=== PATIENT | female | born 1945 | race Caucasian/White ===

== ENCOUNTER 2017-01-16 14:45 | Observation (INO) | payer OTHER, MEDICARE ==
--- NOTE | 2017-01-16 15:16 | EDPHY ---
H & P Time Seen by Provider: 01/16/17 15:05 HPI/ROS: CHIEF COMPLAINT: Weakness HISTORY OF PRESENT ILLNESS: The patient is a 71-year-old female with a history of asthma and COPD on oxygen intermittently who presents to the emergency department with fatigue and weakness. The patient states "I have been in bed for the past 3 days." Patient denies any cough. She denies fever. She has felt a bit "chilled" but thinks this may be to keeping her window open. Patient has no chest pain. She denies mildly increased shortness of breath. She normally wears her oxygen at night when napping. However, for the past 3 days she has worn her oxygen constantly. She denies nausea or vomiting. No leg pain or swelling. REVIEW OF SYSTEMS: My complete review of systems is negative except as mentioned in the HPI. Past Medical/Surgical History: Asthma, COPD, chronic pain Past surgical history: Numerous surgeries Social history: The patient smokes tobacco. She lives at home. Smoking Status: Current every day smoker Physical Exam: Vitals noted GENERAL: Well-appearing, in no acute distress, alert. HEENT: Eyes normal to inspection, normal pharynx, no signs of dehydration. NECK: No thyromegaly, no lymphadenopathy, supple. RESPIRATORY: decreased breath sounds throughout. No rales or rhonchi. No accessory muscle use. No signs of respiratory distress. She is on a nasal cannula at 6. CVS: Regular rate and rhythm, no rubs, murmurs, or gallops. ABDOMEN: Soft, nontender, nondistended, no organomegaly. Bilateral inguinal hernia. Umbilical hernia. Reducible. BACK: Normal to inspection, no CVA tenderness. SKIN: Normal color, no rash, warm, dry. No pallor. EXTREMITIES: No pedal edema, no calf tenderness, no Homans sign or cords, no joint swelling. NEURO/PSYCH: Alert and oriented, normal mood and affect. Constitutional: Initial Vital Signs Temperature (C) 37 C 01/16/17 14:57 Heart Rate 90 01/16/17 14:57 Respiratory Rate 20 01/16/17 14:57 Blood Pressure 101/68 01/16/17 14:57 O2 Sat (%) 76 L 01/16/17 14:57 O2 Delivery Mode Room Air O2 (L/minute) 5 Allergies/Adverse Reactions: No Known Allergies Allergy (Unverified 01/16/17 15:00) Home Medications: Medication Instructions Recorded ASPIRIN 01/16/17 CLONAZEPAM 01/16/17 Lexapro 01/16/17 Lyrica 01/16/17 Oxycodone HCl 01/16/17 Prednisone 01/16/17 Proair Hfa 01/16/17 Progesterone 01/16/17 Synthroid 01/16/17 Medical Decision Making - Diagnostics Imaging Results: Imaging Impressions Chest X-Ray 01/16/17 15:26 Impression: 1. Query COPD with no superimposed acute abnormality identified. 2. Innumerable nodular opacities reasonably relate to remote granulomatous disease. Comparison with prior studies if available would be helpful. 3. See above report for additional findings. ED Course/Re-evaluation: In the emergency department I discussed possible etiologies with the patient. I answered all her questions. IV was placed. Laboratory studies, EKG and chest x-ray were obtained. Patient was given a DuoNeb. Post DuoNeb placement the patient states she felt improved. 15 40: I discussed the plan of care with the patient's daughter was in the room. I discussed laboratory studies with the patient. Of note she had an elevated CO2. Patient ambulated in the emergency department on oxygen. Her oxygen saturation was in the low 90s. Patient was given Solu-Medrol 125 mg IV for COPD exacerbation. I discussed disposition options with the patient and her daughter. They state the patient has been fatigued in her bed for 3 days. They are concerned that she will be able to take care of herself at home. I discussed the case with Dr. Malcolm. He will admit the patient to [facility] for observation for COPD exacerbation. I do not feel the patient needs antibiotics based on her x-ray and presentation. Differential Diagnosis: Differential includes but is not limited to COPD exacerbation, asthma exacerbation, pneumonia, bronchitis, influenza, electrolyte abnormality, sugar abnormality, ACS, acute WA, dehydration - Data Points Laboratory Results: Laboratory Results 01/16/17 15:08 01/16/17 15:08 01/16/17 01/16/17 15:08 15:08 WBC 3.89 10^3/uL 10^3/uL (3.80-9.50) RBC 3.51 10^6/uL L 10^6/uL (4.18-5.33) Hgb 11.5 g/dL L g/dL (12.6-16.3) Hct 36.5 % L % (38.0-47.0) MCV 104.0 fL H fL (81.5-99.8) MCH 32.8 pg pg (27.9-34.1) MCHC 31.5 g/dL L g/dL (32.4-36.7) RDW 13.1 % % (11.5-15.2) Plt Count 157 10^3/uL 10^3/uL (150-400) MPV 10.1 fL fL (8.7-11.7) Neut % (Auto) 57.7 % % (39.3-74.2) Lymph % (Auto) 20.8 % % (15.0-45.0) Iron % (Auto) 19.5 % H % (4.5-13.0) Eos % (Auto) 1.0 % % (0.6-7.6) Baso % (Auto) 0.5 % % (0.3-1.7) Nucleat RBC Rel Count 0.0 % % (0.0-0.2) Absolute Neuts (auto) 2.24 10^3/uL 10^3/uL (1.70-6.50) Absolute Lymphs (auto) 0.81 10^3/uL L 10^3/uL (1.00-3.00) Absolute Monos (auto) 0.76 10^3/uL 10^3/uL (0.30-0.80) Absolute Eos (auto) 0.04 10^3/uL 10^3/uL (0.03-0.40) Absolute Basos (auto) 0.02 10^3/uL 10^3/uL (0.02-0.10) Absolute Nucleated RBC 0.00 10^3/uL 10^3/uL (0-0.01) Immature Gran % 0.5 % % (0.0-1.1) Immature Gran # 0.02 10^3/uL 10^3/uL (0.00-0.10) Sodium 138 mEq/L mEq/L (134-144) Potassium 4.1 mEq/L mEq/L (3.5-5.2) Chloride 92 mEq/L L mEq/L (97-110) Carbon Dioxide 40 mEq/l H mEq/l (22-31) Anion Gap 6 mEq/L L mEq/L (8-16) BUN 18 mg/dL mg/dL (7-23) Creatinine 0.9 mg/dL mg/dL (0.6-1.0) Estimated GFR > 60 Glucose 100 mg/dL mg/dL (70-100) Calcium 9.6 mg/dL mg/dL (8.5-10.4) Troponin I < 0.012 ng/mL ng/mL (0-0.034) NT-Pro-B Natriuret Pep 449 pg/mL H pg/mL (0-125) Departure - Departure Disposition: [facility] Inpatient Acute Clinical Impression: Weakness, COPD with exacerbation Condition: Good Referrals: Patient,NotPresent [Unknown] - As per Instructions
[2017-01-16 15:32] LABS: % IMMATURE GRANULYOCYTES 0.5 % (0.0-1.1); ABSOLUTE IMMATURE GRANULOCYTES 0.02 10^3/uL (0.00-0.10); ADD DIFF? NO; ADD MORPH? NO; ADD SCAN? NO; ATYPICAL LYMPHOCYTE FLAG 0 (0-99); FRAGMENT RBC FLAG 0 (0-99); HEMATOCRIT 36.5 % (38.0-47.0); HEMOGLOBIN 11.5 g/dL (12.6-16.3); LEFT SHIFT FLG 0 (0-99); LIPEMIA HEMOLYSIS FLAG 80 (0-99); MEAN CELL HEMOGLOBIN 32.8 pg (27.9-34.1); MEAN CELL HEMOGLOBIN CONCENTR. 31.5 g/dL (32.4-36.7); MEAN PLATELET VOLUME 10.1 fL (8.7-11.7); PLATELET CLUMPS FLAG 10 (0-99); PLATELET COUNT 157 10^3/uL (150-400); RED BLOOD CELL COUNT 3.51 10^6/uL (4.18-5.33); RED CELL DISTRIBUTION WIDTH 13.1 % (11.5-15.2)
[2017-01-16 15:50] LABS: ANION GAP 6 mEq/L (8-16); CALCIUM 9.6 mg/dL (8.5-10.4); CARBON DIOXIDE 40 mEq/l (22-31); CHLORIDE 92 mEq/L (97-110); CREATININE 0.9 mg/dL (0.6-1.0); GLOMERULAR FILTRATION RATE > 60; GLUCOSE 100 mg/dL (70-100); POTASSIUM 4.1 mEq/L (3.5-5.2); SODIUM 138 mEq/L (134-144)
[2017-01-16 16:02] LABS: TROPONIN I < 0.012 ng/mL (0-0.034)
[2017-01-16] MEDS ORDERED: methylPREDNISolone SOD SUCC 125 MG/2 ML VIAL IVP ONE (17:23)
[2017-01-16] MEDS ORDERED: ONDANSETRON 4 MG/2 ML VIAL IVP PRN (19:00)
[2017-01-16] MEDS ORDERED: ACETAMINOPHEN 325 MG TAB PO PRN (19:00)
[2017-01-16] MEDS ORDERED: ONDANSETRON DISINTEGRATING 4 MG TAB PO PRN (19:00)
[2017-01-16] MEDS ORDERED: ALBUTEROL INH PREPACK MDI TAKEHOME PRN (19:02)
[2017-01-16] MEDS ORDERED: clonazePAM 1 MG TAB PO PRN (19:02)
[2017-01-16] MEDS ORDERED: ALBUTEROL 200 PUFFS/18 GM MDI IH PRN (19:11)
[2017-01-16] MEDS: predniSONE 20 MG TAB PO SCH (19:36)
[2017-01-16] MEDS: AZITHROMYCIN 250 MG TAB PO SCH (19:36)
--- NOTE | 2017-01-16 19:42 | PDGENHP ---
History and Physical - Chief Complaint Acute shortness of breath - History of Present Illness PCP: Dr. Dorantes HPI: 71-year-old female presents with acute shortness of breath characterized as getting easily winded, exacerbated by ambulation, associated with generalized weakness and chills. Onset of symptoms have been progressive over past several days and has rendered her almost completely bed ridden over the past 3. she reports that she has begun using her supplemental oxygen during the daytime and this has not alleviated her symptoms. Reports she has been taking all of her home inhaler medications. She reports that her shortness of breath symptoms were significantly alleviated by duo nebs and steroids received in the emergency department. She has not seen her PCP for this issue. She has not been hospitalized for any pulmonary conditions over the past year. History Information - Allergies/Home Medication List Allergies/Adverse Reactions: No Allergies [NKDA] Allergy (Verified 01/16/17 18:44) Home Medications: Albuterol Sulfate [Proair Hfa] 2 puffs PO Q6H PRN 01/16/17 [Last Taken Unknown] Aspirin [Aspirin 81mg (*)] 81 mg PO DAILY 01/16/17 [Last Taken 01/16/17] Cholecalciferol Vit D3 [Vitamin D3 (*)] 2,000 units PO DAILY 01/16/17 [Last Taken 01/16/17] Escitalopram Oxalate [Lexapro] 5 mg PO DAILY 01/16/17 [Last Taken 01/16/17] Herbals/Supplements -Info Only 1 ea PO DAILY 01/16/17 [Last Taken 01/16/17] Ipratropium [Atrovent Hfa (*)] 2 puffs PO QID 01/16/17 [Last Taken 01/16/17] LEVOTHYROXINE SODIUM [Tirosint 50mcg] 50 mcg PO DAILY 01/16/17 [Last Taken 01/16] Pregabalin [Lyrica 75mg (*)] 75 mg PO BID 01/16/17 [Last Taken 01/16/17] Sulfamethoxazole/Trimethoprim [Bactrim 400-80 mg Tablet] 2 each PO BID 01/16/17 [Last Taken 01/16/17] Thyroid,Pork [[place] Thyroid] 15 mg PO DAILY 01/16/17 [Last Taken 01/16/17] clonazePAM [Clonazepam] 1 mg PO HS PRN 01/16/17 [Last Taken 01/15/17] oxyCODONE/APAP 5/325 [Percocet 5/325 (*)] 1 tab PO QID 01/16/17 [Last Taken ] predniSONE 5 mg PO DAILY 01/16/17 [Last Taken 01/16/17] I have personally reviewed and updated: family history, medical history, social history, surgical history - Past Medical History COPD ( Chronically steroid dependent, chronic immune-suppressed.) Additional medical history: Hypothyroidism. Depression. Chronic pain with continuous opiate dependency - Surgical History Additional surgical history: scoliosis with complete spine hardware, performed in [facility] - Family History Additional family history: she denies any recent sick family contacts - Social History Smoking Status: Current some day smoker Alcohol Use: None Drug Use: None Additional social history: normally independent in her ADLs, lives alone, utilizes a rolling walker, has some private duty assistance with outpatient appointments, family lives locally, has been [place] for the last year Review of Systems ROS: 10pt was reviewed & negative except for what was stated in HPI & below Constitutional: Reports: chills, weakness Respiratory: Reports: shortness of breath Physical Exam Temp Pulse Resp BP Pulse Ox 36.9 C 91 16 106/47 L 92 01/16/17 19:21 01/16/17 19:21 01/16/17 19:21 01/16/17 19:21 01/16/17 19:21 O2 (L/minute) 2.5 Constitutional: no apparent distress, not in pain, chronically ill appearing, No uncomfortable Eyes: PERRL, anicteric sclera, EOMI Ears, Nose, Mouth, Throat: moist mucous membranes, hearing normal, ears appear normal, no oral mucosal ulcers Cardiovascular: systolic murmur ( 2/6 at the sternum), No irregularly irregular , No tachycardia, No edema Respiratory: reduced air movement ( shortened expiratory phase bilaterally), No expiratory wheeze, No inspiratory crackles, No bronchial breath sounds Gastrointestinal: normoactive bowel sounds, soft, non-tender abdomen, no palpable masses, other ( bilateral inguinal hernias, reduce without pain) Musculoskeletal: full muscle strength, no muscle tenderness, normal joint ROM Neurologic: AAOx3, sensation intact bilaterally, No weakness ( motor 5/5 bilateral lower extremities) Psychiatric: interacting appropriately, not anxious, not encephalopathic, thought process linear Lab Data & Imaging Review 01/16/17 15:08 01/16/17 15:08 WBC 3.89 10^3/uL (3.80-9.50) 01/16/17 15:08 RBC 3.51 10^6/uL (4.18-5.33) L 01/16/17 15:08 Hgb 11.5 g/dL (12.6-16.3) L 01/16/17 15:08 Hct 36.5 % (38.0-47.0) L 01/16/17 15:08 MCV 104.0 fL (81.5-99.8) H 01/16/17 15:08 MCH 32.8 pg (27.9-34.1) 01/16/17 15:08 MCHC 31.5 g/dL (32.4-36.7) L 01/16/17 15:08 RDW 13.1 % (11.5-15.2) 01/16/17 15:08 Plt Count 157 10^3/uL (150-400) 01/16/17 15:08 MPV 10.1 fL (8.7-11.7) 01/16/17 15:08 Neut % (Auto) 57.7 % (39.3-74.2) 01/16/17 15:08 Lymph % (Auto) 20.8 % (15.0-45.0) 01/16/17 15:08 [place] % (Auto) 19.5 % (4.5-13.0) H 01/16/17 15:08 Eos % (Auto) 1.0 % (0.6-7.6) 01/16/17 15:08 Baso % (Auto) 0.5 % (0.3-1.7) 01/16/17 15:08 Nucleat RBC Rel Count 0.0 % (0.0-0.2) 01/16/17 15:08 Absolute Neuts (auto) 2.24 10^3/uL (1.70-6.50) 01/16/17 15:08 Absolute Lymphs (auto) 0.81 10^3/uL (1.00-3.00) L 01/16/17 15:08 Absolute Monos (auto) 0.76 10^3/uL (0.30-0.80) 01/16/17 15:08 Absolute Eos (auto) 0.04 10^3/uL (0.03-0.40) 01/16/17 15:08 Absolute Basos (auto) 0.02 10^3/uL (0.02-0.10) 01/16/17 15:08 Absolute Nucleated RBC 0.00 10^3/uL (0-0.01) 01/16/17 15:08 Immature Gran % 0.5 % (0.0-1.1) 01/16/17 15:08 Immature Gran # 0.02 10^3/uL (0.00-0.10) 01/16/17 15:08 Sodium 138 mEq/L (134-144) 01/16/17 15:08 Potassium 4.1 mEq/L (3.5-5.2) 01/16/17 15:08 Chloride 92 mEq/L (97-110) L 01/16/17 15:08 Carbon Dioxide 40 mEq/l (22-31) H 01/16/17 15:08 Anion Gap 6 mEq/L (8-16) L 01/16/17 15:08 BUN 18 mg/dL (7-23) 01/16/17 15:08 Creatinine 0.9 mg/dL (0.6-1.0) 01/16/17 15:08 Estimated GFR > 60 01/16/17 15:08 Glucose 100 mg/dL (70-100) 01/16/17 15:08 Calcium 9.6 mg/dL (8.5-10.4) 01/16/17 15:08 Troponin I < 0.012 ng/mL (0-0.034) 01/16/17 15:08 NT-Pro-B Natriuret Pep 449 pg/mL (0-125) H 01/16/17 15:08 Influenza Typ A,B (DFA) NEGATIVE FOR FLU (NEGATIVE) 01/16/17 17:45 Visualized and Interpreted Chest x-ray results: Yes Chest X-Ray results: no infiltrate, other ( diffuse pulmonary nodules, hyperinflated, extensive spinal hardware) Assessment & Plan Assessment: 71-year-old female presenting with acute COPD exacerbation resulting in acute hypoxic respiratory failure Plan: 1. COPD exacerbation. Acute, new problem this provider, further workup is indicated. Evidenced by significant hypoxia and respiratory failure, symptomatic shortness of breath, reduced expiratory phase diffusely throughout, most likely secondary to either URI or environmental allergens stimulant, need to rule out pulmonary embolism -get D-dimer, CT angiogram if positive -send flu PCR, DFA negative -no evidence of CHF on chest x-ray -improving with duo nebs, steroids, continue -add azithromycin to reduce duration of symptoms -continue supplemental oxygen 2. Acute hypoxic respiratory failure. Evidenced by an SpO2 of 76% on room air with symptomatic shortness of breath and tachypnea, most likely secondary to acute COPD exacerbation as outlined above. -currently requiring supplemental oxygen, continue -attempt to wean as tolerates, pulse ox monitoring -may require supplemental oxygen moving forward at home Diet. Regular Prophylaxis. High risk patient, Lovenox 40 Code. Full per patient, daughter is MPOA Disposition. Anticipated discharge is 01/17/2017, pending further workup and clinical stability as outlined above. I have discussed patient's presentation with Dr. Morrow in the emergency department, he and I both agree that patient should receive scheduled duo nebs and steroids as outlined above.
[2017-01-16] MEDS: IPRATROPIUM/ALBUTEROL 3 ML DEYVIAL IH SCH (20:08)
[2017-01-16] MEDS: OXYCODONE/APAP 5/325 TAB PO SCH (20:26)
[2017-01-16] MEDS: PREGABALIN 75 MG CAP PO SCH (20:26)
[2017-01-16] MEDS: SULFAMETHOX/TMP 400/80 MG 1 TAB PO SCH (20:27)
[2017-01-17 05:12] LABS: ANION GAP 12 mEq/L (8-16); CALCIUM 9.8 mg/dL (8.5-10.4); CARBON DIOXIDE 34 mEq/l (22-31); CHLORIDE 92 mEq/L (97-110); GLOMERULAR FILTRATION RATE 54; GLUCOSE 233 mg/dL (70-100); POTASSIUM 4.7 mEq/L (3.5-5.2); SODIUM 138 mEq/L (134-144)
[2017-01-17] MEDS: IPRATROPIUM/ALBUTEROL 3 ML DEYVIAL IH SCH ×2 (05:14→10:59)
[2017-01-17] MEDS: OXYCODONE/APAP 5/325 TAB PO SCH ×2 (05:21→10:48)
[2017-01-17] MEDS ORDERED: NICOTINE 21 MG/24 HR PATCH TD SCH (09:00)
[2017-01-17] MEDS ORDERED: Herbals/Supplements -Info Only PO SCH (09:00)
[2017-01-17] MEDS ORDERED: ESCITALOPRAM OXALATE 10 MG TAB PO SCH (09:00)
[2017-01-17] MEDS ORDERED: LEVOTHYROXINE SODIUM 50 MCG PO SCH (09:00)
[2017-01-17] MEDS ORDERED: ASPIRIN 81 MG CHEWABLE TAB PO SCH (09:00)
[2017-01-17] MEDS ORDERED: NON-FORMULARY NEW DRUG (Thyroid,Pork [Armour Thyroid] 15 MG) PO SCH (09:00)
[2017-01-17] MEDS ORDERED: CHOLECALCIFEROL VIT D3 1,000 UNITS TAB PO SCH (09:00)
[2017-01-17] MEDS ORDERED: ENOXAPARIN 40 MG/0.4 ML SYR SC SCH (09:00)
[2017-01-17] MEDS ORDERED: THYROID 60 MG TAB PO SCH ×2 (10:00)
[2017-01-17] MEDS: PREGABALIN 75 MG CAP PO SCH (10:00)
[2017-01-17] MEDS: predniSONE 20 MG TAB PO SCH (10:00)
[2017-01-17] MEDS: AZITHROMYCIN 250 MG TAB PO SCH (10:01)
[2017-01-17 11:54] VITALS: BP 115/49; PULSE 102; RESP 19; TEMP 98.4; O2SAT 90
[2017-01-17] MEDS: SULFAMETHOX/TMP 400/80 MG 1 TAB PO SCH ×2 (11:56→13:16)
[2017-01-17] MEDS ORDERED: NS 500 ML IV ONE (12:00)
--- NOTE | 2017-01-17 12:38 | PDIAF ---
- Diagnosis Diagnosis: COPD Code Status: Full Code - Medication Management Discharge Medications: Medications to Continue on Transfer Albuterol Sulfate [Proair Hfa] 2 puffs PO Q6H PRN 01/16/17 [Last Taken Unknown] Aspirin [Aspirin 81mg (*)] 81 mg PO DAILY 01/16/17 [Last Taken 01/16/17] Cholecalciferol Vit D3 [Vitamin D3 (*)] 2,000 units PO DAILY 01/16/17 [Last Taken 01/16/17] Escitalopram Oxalate [Lexapro 10 MG] 5 mg PO DAILY 01/16/17 [Last Taken 01/16/17 ] Herbals/Supplements -Info Only 1 ea PO DAILY 01/16/17 [Last Taken 01/16/17] Ipratropium [Atrovent Hfa (*)] 2 puffs PO QID 01/16/17 [Last Taken 01/16/17] LEVOTHYROXINE SODIUM [Tirosint 50mcg] 50 mcg PO DAILY 01/16/17 [Last Taken 01/16] Pregabalin [Lyrica 75mg (*)] 75 mg PO BID 01/16/17 [Last Taken 01/16/17] Sulfamethoxazole/Trimethoprim [Bactrim SS] 2 each PO BID 01/16/17 [Last Taken ] Thyroid,Pork [ARMOUR THYROID] 15 mg PO DAILY 01/16/17 [Last Taken 01/16/17] clonazePAM [Clonazepam] 1 mg PO HS PRN 01/16/17 [Last Taken 01/15/17] oxyCODONE/APAP 5/325 [Percocet 5/325 (*)] 1 tab PO QID 01/16/17 [Last Taken ] predniSONE 5 mg PO DAILY 01/16/17 [Last Taken 01/16/17] Acetaminophen [Tylenol 325mg (*)] 650 mg PO Q4HRS PRN #0 tab 01/17/17 [Last Taken Unknown] Azithromycin [Zithromax] 250 mg PO DAILY #4 tab 01/17/17 [Last Taken Unknown] Nicotine [Nicoderm Cq 21 mg (*)] 21 mg TD DAILY #0 patch 01/17/17 [Last Taken Unknown] predniSONE 60 mg PO DAILY #12 tablet 01/17/17 [Last Taken Unknown] Discharge Medications: Refer to the Discharge Home Medication list for PRN reason. PICC Care - Routine: N/A - Orders Services needed: Registered Nurse, Physical Therapy, Occupational Therapy - Follow Up Care Current Providers and Referrals: Patient,NotPresent [Unknown] - As per Instructions
--- NOTE | 2017-01-17 14:18 | GDS ---
[f rep st] DISCHARGE SUMMARY DISCHARGE DIAGNOSES: 1. Chronic obstructive pulmonary disease exacerbation. 2. Acute hypoxemic respiratory failure. PHYSICAL EXAMINATION: GENERAL: The patient is alert. VITAL SIGNS: Afebrile at 36.9, pulse is 102 , respiratory rate is 19, blood pressure is 115/49, she is saturating 90% on 3 L. I have seen and evaluated the patient on the day of discharge. HOSPITAL COURSE: The patient is a 71-year-old female who presented to the emergency room with compl aints of shortness of breath. She was evaluated and diagnosed with: 1. COPD exacerbation: During this hospitalization she was treated with azithromycin as well as a p rednisone burst. She will continue both of these medications in the outpatient setting. She has no signs of pneumonia at this time. Her respiratory situation has significantly improved, and she is able to be discharged home. 2. Acute hypoxemic respiratory failure: The patient continues to require oxygen. Her requirements have decreased during this hospitalization but is still requiring supplemental oxygen at the time o f discharge. 3. Multiple lung nodule opacities: These were noted on the patient's chest x-ray. I have recommen ded that she follow up with a repeat chest x-ray and her primary care physician in 1 week to assure stability and further recommendations for evaluation of these nodules. She is in agreement with thi s plan and indicates that she is aware that they are present. I have discussed the patient's dispos ition with her daughter, Miriam. They are both in agreement with this plan. The patient will be dis charged home with home health care and further follow up with her primary care physician. DISCHARGE MEDICATIONS: Please refer to EMR form. I have provided the patient a prescription for pr ednisone 60 daily for a total of 4 more days as well as azithromycin 250 mg daily for a total of 4 m ore days. She is to reinitiate her home prednisone dose of 5 mg after her prednisone bolus is compl ete. There are no further pending studies. /[id number]/MODL
== END 2017-01-17 16:13 | disposition home health service (06) ==
LOC: EDUNIT# → F3E 18:29
PROVIDERS: ADMIT Internal Medicine; ATTEND Internal Medicine
DX: J44.1 Chronic obstructive pulmonary disease with (acute) exacerbation (principal); J96.01 Acute respiratory failure with hypoxia; R91.8 Other nonspecific abnormal finding of lung field; F17.200 Nicotine dependence, unspecified, uncomplicated; Z99.81 Dependence on supplemental oxygen
CPT/HCPCS: 71020; 97161; 97165; 97535; G0378; G8978; G8979; G8987; G8988; J1650; 96374

== ENCOUNTER 2017-03-16 12:21 | Inpatient (IN) | payer OTHER, MEDICARE ==
--- NOTE | 2017-03-16 13:08 | CPEKG ---
Heart Rate: 102 RR Interval: 588 P-R Interval: 136 QRSD Interval: 72 QT Interval: 336 QTC Interval: 438 P [place]: 52 QRS [place]: 70 T Wave [place]: 63 EKG Severity - ABNORMAL ECG - EKG Impression: SINUS TACHYCARDIA EKG Impression: PROBABLE LEFT ATRIAL ABNORMALITY EKG Impression: PROBABLE INFERIOR INFARCT, OLD EKG Impression: BORDERLINE T ABNORMALITIES, ANT-LAT LEADS EKG Impression: ST ELEVATION SUGGESTS PERICARDITIS Electronically Signed By: Simon Mcdermott 16-Mar-2017 21:27:17
[2017-03-16 13:14] LABS: % IMMATURE GRANULYOCYTES 1.8 % (0.0-1.1); ABSOLUTE IMMATURE GRANULOCYTES 0.11 10^3/uL (0.00-0.10); ADD DIFF? NO; ADD MORPH? NO; ADD SCAN? NO; ATYPICAL LYMPHOCYTE FLAG 0 (0-99); FRAGMENT RBC FLAG 0 (0-99); HEMATOCRIT 36.5 % (38.0-47.0); HEMOGLOBIN 11.6 g/dL (12.6-16.3); LEFT SHIFT FLG 10 (0-99); LIPEMIA HEMOLYSIS FLAG 80 (0-99); MEAN CELL HEMOGLOBIN 34.9 pg (27.9-34.1); MEAN CELL HEMOGLOBIN CONCENTR. 31.8 g/dL (32.4-36.7); MEAN CELL VOLUME 109.9 fL (81.5-99.8); MEAN PLATELET VOLUME 10.5 fL (8.7-11.7); PLATELET CLUMPS FLAG 10 (0-99); PLATELET COUNT 159 10^3/uL (150-400); RED BLOOD CELL COUNT 3.32 10^6/uL (4.18-5.33); RED CELL DISTRIBUTION WIDTH 12.7 % (11.5-15.2)
[2017-03-16] MEDS ORDERED: IPRATROPIUM/ALBUTEROL 3 ML DEYVIAL IH ONE (13:15)
[2017-03-16] MEDS ORDERED: IPRATROPIUM/ALBUTEROL 3 ML DEYVIAL ONE (13:15)
[2017-03-16] MEDS ORDERED: methylPREDNISolone SOD SUCC 125 MG/2 ML VIAL IVP ONE (13:15)
[2017-03-16] MEDS ORDERED: NS 500 ML IV ONE (13:15)
[2017-03-16] MEDS ORDERED: MAGNESIUM SULF 2 GM/WATER 50 ML IV ONE (13:15)
[2017-03-16] MEDS ORDERED: methylPREDNISolone SOD SUCC 125 MG/2 ML VIAL ONE (13:16)
--- NOTE | 2017-03-16 13:24 | EDPHY ---
H & P Time Seen by Provider: 03/16/17 12:58 HPI/ROS: HPI Weakness, shortness of breath. 72-year-old female by ambulance. She lives alone. She does have a daughter in the area that helps with her care. She also has home health care who come into her home twice weekly. She has a history of COPD. She has been feeling more short of breath and very weak onset 2-3 days ago. She reports she has been wheezing. She denies cough. No chest pain. She reports having a subjective fever. ROS: Constitutional: No fever, no chills. As above. Eyes: No discharge. No changes in vision. ENT: No sore throat. No nasal congestion or rhinorrhea. Respiratory: No cough. As above. Cardiac: No chest pain, no palpitations. Gastrointestinal: No abdominal pain, no vomiting, no diarrhea. Genitourinary: No hematuria. No dysuria or increased frequency with urination. Musculoskeletal: No back pain. No neck pain. No myalgias or arthralgias. Skin: No rashes. Neurological: No headache. No focal weakness or altered sensation. Past medical history: Asthma, COPD, depression, chronic back pain, abdominal hernia repair x2, hypothyroid. She is on oxygen, 2 L 24-7. Social history: Lives alone. As above. Smoker. States that she ambulates without a walker or cane but uses furniture to a sister movements. Denies alcohol. Physical Exam: General Appearance: Alert, cachectic, appears uncomfortable. This patient is responding to questions slowly but appropriately. This patient appears well- hydrated and well-nourished. Eyes: Pupils equal and round no pallor or injection. No lid edema, erythema or injection. ENT, Mouth: Mucous membranes are moist. The pharyngeal tissues are unremarkable. No edema or swelling. No asymmetry suggestive of abscess. No erythema or exudates. Respiratory: There are no retractions, diffuse wheezing throughout bilaterally with shallow air movement. No rhonchi. No tachypnea. Cardiovascular: Regular rate and rhythm. Borderline tachycardia. No murmur appreciated. Gastrointestinal: Abdomen is soft and nontender, umbilical hernia, easily reducible, bowel sounds normal. No focal tenderness at McBurney's point. No Tee sign. Neurological: Motor sensory function is grossly intact. Cranial nerves are normal. Skin: Warm and dry, no rashes. Musculoskeletal: Neck is supple and nontender. Extremities are symmetrical. All joints range without pain or impingement. Psychiatric: No agitation. No depression. Database: EKG: EKG time is 1:07 p.m.; EKG shows a narrow complex sinus tachycardia with a ventricular rate of 102. Diffuse ST elevations, 2 3 AVF, V3, V4 and V5. No reciprocal changes. The SC, QRS, QT intervals are within normal limits. There are no ST-T wave changes indicative of ischemic or injury pattern. No evidence of right heart strain. Interpreted by me. Imaging: Chest x-ray AP portable; COPD, hyper expansion, flattened diaphragms, no pneumothorax, spinal rods appear intact, scoliosis, no infiltrate seen. Interpreted by me. Procedures: Emergency department course: IV placed. She was placed on a monitor. She received 1 albuterol/Atrovent nebulizer treatment and route to the hospital by EMS. EKG was performed. Chest x-ray obtained shortly after arrival. Patient started on albuterol/ Atrovent nebulizers x2, she was given 125 mg of IV Solu-Medrol and 2 g of IV magnesium for treatment of COPD/asthma exacerbation. Vital signs reviewed. Temperature 37.4degrees. Pulse oximetry 96% on 3 L by nasal cannula. 3:25 p.m., patient re-evaluated. She is resting comfortably at this time. She is on 4 L of nasal cannula oxygen. Pulse oximetry in the mid 90s. She reports feeling much better. I discussed the results of her chest x-ray and blood work. Plan for admission reviewed with her. She endorses. 3:30 p.m., patient accepted for admission by hospitalist, Dr. Baeza. Patient admitted to the hospitalist service in stable and improved condition. Differential Diagnosis: The differential diagnosis on this patient includes but is not limited to COPD exacerbation, pneumonia, bronchitis, asthma exacerbation, pericarditis, myocarditis, myocardial infarction, urinary tract infection. This represents a partial list of diagnoses considered. These considerations are based on history , physical exam, past history, reassessment and diagnostic testing. Smoking Status: Current some day smoker Constitutional: Initial Vital Signs Temperature (C) 37.4 C 03/16/17 12:35 Heart Rate 102 H 03/16/17 12:35 Respiratory Rate 20 03/16/17 12:35 Blood Pressure 114/66 03/16/17 12:35 O2 Sat (%) 96 03/16/17 12:35 O2 Delivery Mode Nasal Cannula O2 (L/minute) 4 Allergies/Adverse Reactions: No Allergies [NKDA] Allergy (Verified 01/16/17 18:44) Home Medications: Medication Instructions Recorded Albuterol Sulfate [Proair Hfa] 2 puffs PO Q6H PRN 01/16/17 Aspirin [Aspirin 81mg (*)] 81 mg PO DAILY 01/16/17 Cholecalciferol Vit D3 [Vitamin D3 2,000 units PO DAILY 01/16/17 (*)] Escitalopram Oxalate [Lexapro 10 5 mg PO DAILY 01/16/17 MG] Herbals/Supplements -Info Only 1 ea PO DAILY 01/16/17 Ipratropium [Atrovent Hfa (*)] 2 puffs PO QID 01/16/17 LEVOTHYROXINE SODIUM [Tirosint 50 mcg PO DAILY 01/16/17 50mcg] Pregabalin [Lyrica 75mg (*)] 75 mg PO BID 01/16/17 Sulfamethoxazole/Trimethoprim 2 each PO BID 01/16/17 [Bactrim SS] Thyroid,Pork [ARMOUR THYROID] 15 mg PO DAILY 01/16/17 clonazePAM [Clonazepam] 1 mg PO HS PRN 01/16/17 oxyCODONE/APAP 5/325 [Percocet 1 tab PO QID 01/16/17 5/325 (*)] predniSONE 5 mg PO DAILY 01/16/17 Acetaminophen [Tylenol 325mg (*)] 650 mg PO Q4HRS PRN #0 tab 01/17/17 Azithromycin [Zithromax] 250 mg PO DAILY #4 tab 01/17/17 Nicotine [Nicoderm Cq 21 mg (*)] 21 mg TD DAILY #0 patch 01/17/17 predniSONE 60 mg PO DAILY #12 tablet 01/17/17 Medical Decision Making - Diagnostics Imaging Results: Imaging Impressions Chest X-Ray 03/16/17 13:16 Impression: 1. Suspect COPD/airways disease. 2. Innumerable calcified granulomata consistent with remote granulomatous disease. - Data Points Laboratory Results: Laboratory Results 03/16/17 13:00 03/16/17 13:00 03/16/17 03/16/17 03/16/17 13:00 13:00 13:00 WBC 6.00 10^3/uL 10^3/uL (3.80-9.50) RBC 3.32 10^6/uL L 10^6/uL (4.18-5.33) Hgb 11.6 g/dL L g/dL (12.6-16.3) Hct 36.5 % L % (38.0-47.0) MCV 109.9 fL H fL (81.5-99.8) MCH 34.9 pg H pg (27.9-34.1) MCHC 31.8 g/dL L g/dL (32.4-36.7) RDW 12.7 % % (11.5-15.2) Plt Count 159 10^3/uL 10^3/uL (150-400) MPV 10.5 fL fL (8.7-11.7) Neut % (Auto) 64.1 % % (39.3-74.2) Lymph % (Auto) 18.2 % % (15.0-45.0) [place] % (Auto) 15.5 % H % (4.5-13.0) Eos % (Auto) 0.2 % L % (0.6-7.6) Baso % (Auto) 0.2 % L % (0.3-1.7) Nucleat RBC Rel Count 0.0 % % (0.0-0.2) Absolute Neuts (auto) 3.85 10^3/uL 10^3/uL (1.70-6.50) Absolute Lymphs (auto) 1.09 10^3/uL 10^3/uL (1.00-3.00) Absolute Monos (auto) 0.93 10^3/uL H 10^3/uL (0.30-0.80) Absolute Eos (auto) 0.01 10^3/uL L 10^3/uL (0.03-0.40) Absolute Basos (auto) 0.01 10^3/uL L 10^3/uL (0.02-0.10) Absolute Nucleated RBC 0.00 10^3/uL 10^3/uL (0-0.01) Immature Gran % 1.8 % H % (0.0-1.1) Immature Gran # 0.11 10^3/uL H 10^3/uL (0.00-0.10) PT INR APTT D-Dimer Turbidity Cancelled Sodium 138 mEq/L mEq/L Cancelled (134-144) Potassium 4.4 mEq/L mEq/L Cancelled (3.5-5.2) Chloride 91 mEq/L L mEq/L Cancelled (97-110) Carbon Dioxide 40 mEq/l H mEq/l Cancelled (22-31) Anion Gap 7 mEq/L L mEq/L Cancelled (8-16) BUN 28 mg/dL H mg/dL Cancelled (7-23) Creatinine 0.9 mg/dL mg/dL Cancelled (0.6-1.0) Estimated GFR > 60 Cancelled Glucose 72 mg/dL mg/dL Cancelled (70-100) Calcium 10.0 mg/dL mg/dL Cancelled (8.5-10.4) Total Bilirubin 0.6 mg/dL mg/dL (0.1-1.4) Conjugated Bilirubin 0.4 mg/dL mg/dL (0.0-0.5) Unconjugated Bilirubin 0.2 mg/dL mg/dL (0.0-1.1) AST 42 IU/L IU/L (14-46) ALT 53 IU/L H IU/L (9-52) Alkaline Phosphatase 43 IU/L IU/L (38-126) Troponin I 0.013 ng/mL ng/mL (0-0.034) NT-Pro-B Natriuret Pep 456 pg/mL H pg/mL (0-125) Total Protein 6.5 g/dL g/dL (6.3-8.2) Albumin 3.9 g/dL g/dL (3.5-5.0) TSH 1.930 uIU/mL uIU/mL (0.465-4.680) Specimen Hemolysis Cancelled Ethyl Alcohol < 10 mg/dL mg/dL (0-10) 03/16/17 11:50 WBC RBC Hgb Hct MCV MCH MCHC RDW Plt Count MPV Neut % (Auto) Lymph % (Auto) [place] % (Auto) Eos % (Auto) Baso % (Auto) Nucleat RBC Rel Count Absolute Neuts (auto) Absolute Lymphs (auto) Absolute Monos (auto) Absolute Eos (auto) Absolute Basos (auto) Absolute Nucleated RBC Immature Gran % Immature Gran # PT 12.5 SEC SEC (12.0-15.0) INR 0.94 (0.83-1.16) APTT 26.2 SEC SEC (23.0-38.0) D-Dimer 0.46 ug/mLFEU ug/mLFEU (0.00-0.50) Turbidity Sodium Potassium Chloride Carbon Dioxide Anion Gap BUN Creatinine Estimated GFR Glucose Calcium Total Bilirubin Conjugated Bilirubin Unconjugated Bilirubin AST ALT Alkaline Phosphatase Troponin I NT-Pro-B Natriuret Pep Total Protein Albumin TSH Specimen Hemolysis Ethyl Alcohol Medications Given: Discontinued Medications Albuterol/Ipratropium (Duoneb) 6 ml IH EDNOW ONE Stop: 03/16/17 13:16 Last Admin: 03/16/17 14:08 Dose: 6 ml Hydromorphone HCl (Dilaudid) 0.5 mg IVP EDNOW ONE Stop: 03/16/17 14:13 Last Admin: 03/16/17 13:50 Dose: 0.5 mg Sodium Chloride (Ns) 500 mls @ 1,000 mls/hr IV ONCE ONE PRN Reason: Protocol Stop: 03/16/17 13:44 Last Admin: 03/16/17 13:30 Dose: 500 mls Magnesium Sulfate (Magnesium Sulf 2 Gm (Premix)) 50 mls @ 50 mls/hr IV EDNOW ONE Stop: 03/16/17 14:14 Last Admin: 03/16/17 14:00 Dose: 50 mls Methylprednisolone Sodium Succinate (Solu-Medrol) 125 mg IVP EDNOW ONE Stop: 03/16/17 13:16 Last Admin: 03/16/17 13:45 Dose: 125 mg Departure - Departure Disposition: [facility] Inpatient Acute Clinical Impression: Dyspnea, Weakness, COPD exacerbation, Dehydration Referrals: Patient,NotPresent [Unknown] - As per Instructions
[2017-03-16 13:33] LABS: INR 0.94 (0.83-1.16); PROTIME(PATIENT) 12.5 SEC (12.0-15.0)
[2017-03-16 13:34] LABS: APTT 26.2 SEC (23.0-38.0)
[2017-03-16] MEDS ORDERED: HYDROmorphONE/DILAUDID 1 MG/ML SYR ONE (13:43)
[2017-03-16] MEDS ORDERED: HYDROmorphONE/DILAUDID 1 MG/ML SYR IVP ONE (14:12)
[2017-03-16 14:49] LABS: ALANINE AMINOTRANSFERASE 53 IU/L (9-52); ALBUMIN 3.9 g/dL (3.5-5.0); ALKALINE PHOSPHATASE 43 IU/L (38-126); ASPARTATE AMINOTRANSFERASE 42 IU/L (14-46); BILIRUBIN,TOTAL 0.6 mg/dL (0.1-1.4); BILIRUBIN-CONJUGATED 0.4 mg/dL (0.0-0.5); BILIRUBIN-UNCONJUGATED 0.2 mg/dL (0.0-1.1); CHLORIDE 91 mEq/L (97-110); CREATININE 0.9 mg/dL (0.6-1.0); ETHANOL SERUM < 10 mg/dL (0-10); GLOMERULAR FILTRATION RATE > 60; GLUCOSE 72 mg/dL (70-100); POTASSIUM 4.4 mEq/L (3.5-5.2); SODIUM 138 mEq/L (134-144); TOTAL PROTEIN 6.5 g/dL (6.3-8.2)
[2017-03-16 15:00] LABS: TROPONIN I 0.013 ng/mL (0-0.034)
[2017-03-16 15:04] LABS: ANION GAP 7 mEq/L (8-16)
[2017-03-16 15:21] LABS: CARBON DIOXIDE 40 mEq/l (22-31)
[2017-03-16 16:21] LABS: COLOR YELLOW; LEUKOCYTE ESTERASE,URINE NEGATIVE (NEGATIVE); NITRITE,URINE NEGATIVE (NEGATIVE)
[2017-03-16 16:23] LABS: MUCUS TRACE /lpf (NONE-1+)
[2017-03-16] MEDS ORDERED: ACETAMINOPHEN 325 MG TAB PO PRN (16:56)
[2017-03-16] MEDS ORDERED: ALBUTEROL 3 ML DEYVIAL IH PRN (16:56)
[2017-03-16] MEDS ORDERED: ONDANSETRON 4 MG/2 ML VIAL IVP PRN (16:56)
[2017-03-16] MEDS ORDERED: ONDANSETRON DISINTEGRATING 4 MG TAB PO PRN (16:56)
[2017-03-16] MEDS ORDERED: clonazePAM 1 MG TAB PO PRN (16:58)
--- NOTE | 2017-03-16 17:54 | GHP ---
[f rep st] HISTORY AND PHYSICAL DATE OF ADMISSION: 03/16/2017 CHIEF COMPLAINT: Shortness of breath. HISTORY OF PRESENT ILLNESS: This is a 72-year-old female with past history of COPD. She is usually on 2 L of oxygen. Over the last several days, she has had increasing shortness of breath. She nihcols s not have a productive cough. No chest pain. Patient is a poor historian, but it does appear that she is on some antibiotics and steroids at home. I am not sure this is a cure or chronic. The lily stone's daughter noticed that she was somnolent yesterday; this is a little bit better today. REVIEW OF SYSTEMS: A 10-point review of systems obtained and, other than stated above, was negative . PAST MEDICAL HISTORY: 1. COPD, chronically steroid dependent and immune suppressed. 2. Hypothyroidism. 3. Depression. 4. Chronic pain with chronic opiates. 5. History of scoliosis with spine fusion present from cervical to the sacrum. SOCIAL HISTORY: Does continue to smoke some. FAMILY HISTORY: Both parents are . PHYSICAL EXAMINATION: VITAL SIGNS: Afebrile. Blood pressure is 136/53, heart rate 94, oxygen satu ration 97% on 4 L. GENERAL: Patient is cachectic-appearing but in no apparent distress. HEENT: a nicteric sclerae. Extraocular muscles intact. Moist mucous membranes. NECK: Supple. No thyromeg john. LUNGS: Good effort. Decreased breath sounds throughout. No wheezing or rhonchi. CARDIOVASC ULAR: Regular rate and rhythm. No murmurs or gallops. ABDOMEN: Positive bowel sounds. Soft, non tender, nondistended. No hepatosplenomegaly. EXTREMITIES: No clubbing, cyanosis, or edema. SKIN: Without rash. Warm, dry, and intact. NEUROLOGIC: Alert and oriented but somewhat slow in answer ing questions. LABORATORY DATA: CBC is normal but MCV is 109. Alcohol level is normal. Chemistry: Does have CO2 of 40. D-dimer is negative. Chest x-ray personally reviewed and interpreted, shows COPD and granulomas. ASSESSMENT: This is a 72-year-old female with fairly progressive chronic obstructive pulmonary dise ase, presenting with chronic obstructive pulmonary disease exacerbation. 1. Chronic obstructive pulmonary disease exacerbation. Patient says she is feeling better, althoug h she does answer questions slowly. I wonder if there is still an element of hypercarbia. Will get ABG to get a better idea. She may need a bit of BiPAP, but again she is feeling better and is ment ating fairly well. It appears that she may be on 40 mg of prednisone twice a day chronically. We w ill treat with some IV Solu-Medrol at 60 mg q.6 for now. In the morning, will try to elucidate if s he is really on that high of a dose of steroids. She looks like she is on Bactrim, as well, which c ould be for PCP prophylaxis. Probably should be following up with a foreman/project manager if she is that en d-stage. 2. Chronic pain. Will continue her pain medicines as needed but watch her mental status. CODE STATUS: Patient does want to be full code. /[id number]/MODL
[2017-03-16] MEDS: OXYCODONE/APAP 5/325 TAB PO PRN (18:29)
[2017-03-16] MEDS: methylPREDNISolone SOD SUCC 125 MG/2 ML VIAL IVP SCH (18:31)
[2017-03-16] MEDS: PREGABALIN 75 MG CAP PO SCH (21:16)
[2017-03-16] MEDS: SULFAMETHOX/TMP 800/160 MG 1 TAB PO SCH (21:16)
[2017-03-16] MEDS: IPRATROPIUM/ALBUTEROL 3 ML DEYVIAL IH SCH (21:44)
[2017-03-17] MEDS: methylPREDNISolone SOD SUCC 125 MG/2 ML VIAL IVP SCH ×3 (00:15→10:59)
[2017-03-17] MEDS: IPRATROPIUM/ALBUTEROL 3 ML DEYVIAL IH SCH ×4 (05:14→21:28)
[2017-03-17] MEDS: LEVOTHYROXINE 50 MCG TAB PO SCH (05:50)
[2017-03-17] MEDS: OXYCODONE/APAP 5/325 TAB PO PRN ×3 (06:33→20:06)
[2017-03-17] MEDS ORDERED: NON-FORMULARY NEW DRUG (Mirabegron [Myrbetriq] 50 MG) PO SCH (09:00)
[2017-03-17] MEDS ORDERED: predniSONE 20 MG TAB PO SCH (09:00)
[2017-03-17] MEDS ORDERED: NON-FORMULARY NEW DRUG (Thyroid,Pork [Armour Thyroid] 15 MG) PO SCH (09:00)
[2017-03-17] MEDS ORDERED: LEVOTHYROXINE SODIUM 50 MCG PO SCH (09:00)
[2017-03-17] MEDS: Mirabegron [Myrbetriq] 50 MG PO SCH (09:34)
[2017-03-17] MEDS: ARMOUR THYROID 15 MG PO SCH (09:34)
[2017-03-17] MEDS: SULFAMETHOX/TMP 800/160 MG 1 TAB PO SCH ×2 (09:35→20:06)
[2017-03-17] MEDS: ASPIRIN 81 MG CHEWABLE TAB PO SCH (09:35)
[2017-03-17] MEDS: ESCITALOPRAM OXALATE 10 MG TAB PO SCH (09:35)
[2017-03-17] MEDS: PREGABALIN 75 MG CAP PO SCH ×2 (09:35→20:06)
--- NOTE | 2017-03-17 10:43 | WOCRNPDOC ---
WOCRN Advanced Assessment Note - Skin Integrity Problem, Advanced Assess Coccyx Pressure Injury Dressing Type: Allevyn Life Exudate Amount: None Integumentary Issue Intervention: Visualized Under Dressing Site Measurement - Head-to-Toe Length X Width X Depth (cm): 3.5x4x0 Pressure Injury Stage: Stage 1 Pressure Injury Present on Admit: Yes Skin Integrity Problem Comment: Patient aware of Pressure Injury over distal sacrum/coccyx. Reported that had given her medication for area. Education done with patient about need to reposition more frequently and reiterated that medication would not solve the issue. Patient had 6 layers of linens underneath her. Place a max of 2 layers under this patient. No briefs. One chux and one fitted sheet. Reported to Chivo HARDY. Wound care will not follow. Please reconsult if wound does not improve or it worsens.
[2017-03-17] MEDS ORDERED: NS 1,000 ML IV SCH (13:00)
--- NOTE | 2017-03-17 14:13 | HOSPPROG ---
Hospitalist Progress Note Assessment/Plan: 72y female with c/o SOB. This is my first encounter. Chart reviewed. D/W CM and insurance healthcare representative. #COPD exacerbation change to PO steriods cont other meds doing better at baseline o2 #Dehydration cont supportive fluid #FTT not eating much consider calorie count #Pain chronic uncomfortable #Dispo cont hospital stay monitor on PO steriods Subjective: Feeling better. Eager to go home. No SOB. Objective: Vital Signs Temp Pulse Resp BP Pulse Ox 37.1 C 88 14 110/50 L 91 L 03/17/17 12:42 03/17/17 12:42 03/17/17 12:42 03/17/17 12:42 03/17/17 12:42 03/16/17 03/17/17 03/18/17 05:59 05:59 05:59 Intake Total 3625 Output Total 200 Balance 3425 PT 12.5 SEC (12.0-15.0) 03/16/17 11:50 INR 0.94 (0.83-1.16) 03/16/17 11:50 - Physical Exam Constitutional: chronically ill appearing, uncomfortable, cachectic Eyes: PERRL, anicteric sclera, EOMI Ears, Nose, Mouth, Throat: moist mucous membranes, hearing normal, ears appear normal Cardiovascular: No JVD, No tachycardia, No edema Respiratory: no respiratory distress, no rales or rhonchi, reduced air movement Gastrointestinal: No tenderness, No ascites, No guarding Skin: warm, normal color, No erythema Musculoskeletal: no joint effusions, muscular tenderness, generalized weakness Neurologic: AAOx3 Psychiatric: not anxious, not encephalopathic, thought process linear ICD10 Worksheet Patient Problems: Problems Problem Status Onset Dyspnea Acute Weakness Acute COPD exacerbation Acute Dehydration Acute Chronic Disease Mgmt/Transitional Care Acute Weakness Acute COPD with exacerbation Acute
[2017-03-17] MEDS: predniSONE 20 MG TAB PO SCH (20:05)
--- NOTE | 2017-03-18 00:40 | GDS ---
[f rep st] DISCHARGE SUMMARY DISCHARGE DIAGNOSES: 1. Chronic obstructive pulmonary disease exacerbation. 2. Chronic pain. PHYSICAL EXAM: GENERAL: The patient is alert. VITAL SIGNS: Afebrile at 37.1 , pulse 88, respiratory rate 14, blood pressure is 110/50. She is saturating 91 % on 2 L. I have seen and evaluated the patient on the day of discharge. HOSPITAL COURSE: The patient is a 72-year-old female, who has a longstanding history of COPD. She presented to the emergency room with complaints of severe shortness of breath. She was treated with IV steroids as well as antibiotic therapy. Her condition has significantly improved today. She is saturating greater than 90% on her baseline 2 L oxygen. She feels significantly improved and eager to be discharged home. The patient also suffers from some mild dehydration. I have provided her with IV fluids prior to disposition. It is recommended that she follow up with a baby registry sales consultant in the outpatient setting for further recommendations and medications. I have discussed in her disposition with her caregiver who are both in agreement with the plan. She will be discharged home with private home care arranged. Follow up will be with her primary care physician and I have recommended a baby registry sales consultant of her choice. DISCHARGE MEDICATIONS: Please refer to EMR form. I have not provided any prescriptions for the patient at time of disposition. She is to continue 20 mg p.o. twice daily of prednisone as well as her previously prescribed azithromycin. I spent greater than 35 minutes in the care, coordination, and management of the patient's discharge. /[id number]/MODL MTDD
[2017-03-18] MEDS: IPRATROPIUM/ALBUTEROL 3 ML DEYVIAL IH SCH ×2 (05:57→13:41)
[2017-03-18] MEDS: LEVOTHYROXINE 50 MCG TAB PO SCH (06:26)
[2017-03-18] MEDS: SULFAMETHOX/TMP 800/160 MG 1 TAB PO SCH (08:40)
[2017-03-18] MEDS: OXYCODONE/APAP 5/325 TAB PO PRN ×2 (08:41→13:37)
[2017-03-18] MEDS: predniSONE 20 MG TAB PO SCH (08:41)
[2017-03-18] MEDS: ESCITALOPRAM OXALATE 10 MG TAB PO SCH (08:44)
[2017-03-18] MEDS: PREGABALIN 75 MG CAP PO SCH (08:45)
[2017-03-18] MEDS: ASPIRIN 81 MG CHEWABLE TAB PO SCH (08:45)
[2017-03-18] MEDS: Mirabegron [Myrbetriq] 50 MG PO SCH (09:18)
[2017-03-18] MEDS: ARMOUR THYROID 15 MG PO SCH (09:19)
[2017-03-18 11:48] VITALS: BP 131/67; PULSE 90; RESP 18; TEMP 97.6; O2SAT 93
--- NOTE | 2017-03-18 11:49 | PDIAF ---
- Diagnosis Diagnosis: copd Code Status: Full Code - Medication Management Discharge Medications: Medications to Continue on Transfer Aspirin [Aspirin 81mg (*)] 81 mg PO DAILY 01/16/17 [Last Taken 01/16/17] Cholecalciferol Vit D3 [Vitamin D3 (*)] 2,000 units PO DAILY 01/16/17 [Last Taken 01/16/17] Escitalopram Oxalate [Lexapro 10 MG] 10 mg PO DAILY 01/16/17 [Last Taken ] Herbals/Supplements -Info Only 1 ea PO DAILY 01/16/17 [Last Taken 01/16/17] LEVOTHYROXINE SODIUM [Tirosint 50mcg] 50 mcg PO DAILY 01/16/17 [Last Taken 01/16] Pregabalin [Lyrica 75mg (*)] 75 mg PO BID 01/16/17 [Last Taken 01/16/17] Sulfamethoxazole/Trimethoprim [Bactrim SS] 2 each PO BID 01/16/17 [Last Taken ] Thyroid,Pork [ARMOUR THYROID] 15 mg PO DAILY 01/16/17 [Last Taken 01/16/17] clonazePAM [Clonazepam] 1 mg PO HS PRN 01/16/17 [Last Taken 01/15/17] Azithromycin [Azithromycin Oral Liquid] 3 ml PO BID 03/16/17 [Last Taken Unknown ] Calcium Carbonate/Vitamin D3 [CALCIUM 600 + VIT D TABLET] 1 each PO BID [Last Taken Unknown] Levalbuterol Tartrate [Levalbuterol Tartrate Hfa] 2 puffs IH Q6H PRN 03/16/17 [ Last Taken Unknown] Mirabegron [Myrbetriq] 50 mg PO DAILY 03/16/17 [Last Taken Unknown] PREDNISONE 20 mg PO BID 03/16/17 [Last Taken Unknown] oxyCODONE HCL/ACETAMINOPHEN [Percocet 5-325 mg Tablet] 1 each PO QID PRN [Last Taken Unknown] predniSONE 20 mg PO BID tablet 03/18/17 [Last Taken Unknown] Discharge Medications: Refer to the Discharge Home Medication list for PRN reason. PICC Care - Routine: N/A - Orders Services needed: Home Care, Registered Nurse, Physical Therapy Home Care Face to Face: I certify that this patient was under my care and that I had the required [id number] encounter meeting the encounter requirements on the discharge day. My findings support the fact that the patient is homebound as defined in CMS Chapter 7 Medicare Benefits Manual 30.1.1, The condition of the patient is such that there exists a normal inability to leave home and consequently, leaving home would require a considerable and taxing effort. Diet Recommendation: no restrictions on diet - Follow Up Care Current Providers and Referrals: Patient,NotPresent [Unknown] - As per Instructions
== END 2017-03-18 14:30 | disposition home health service (06) | DRG 192 ==
LOC: EDUNIT# → INTOOBSV 15:28 → F3E 16:24 → OBSVTOIN 03-17 14:18
PROVIDERS: ADMIT Internal Medicine; ATTEND Internal Medicine
DX: J44.1 Chronic obstructive pulmonary disease with (acute) exacerbation (principal); E03.9 Hypothyroidism, unspecified; F11.90 Opioid use, unspecified, uncomplicated; G89.29 Other chronic pain; Z79.52 Long term (current) use of systemic steroids; Z99.81 Dependence on supplemental oxygen; Z98.1 Arthrodesis status; E86.0 Dehydration
CPT/HCPCS: 96365; 96366; 97166-GO; 97535-GO; G0378; G0480; G8987-GO-CK; G8988-GO-CJ; J1170

== ENCOUNTER 2017-03-19 21:25 | Emergency (ER) | payer OTHER, MEDICARE ==
[2017-03-19 21:39] VITALS: RESP 20; TEMP 98.1
--- NOTE | 2017-03-19 21:39 | CPEKG ---
Heart Rate: 92 RR Interval: 652 P-R Interval: 132 QRSD Interval: 88 QT Interval: 368 QTC Interval: 456 P [place]: 41 QRS [place]: 52 T Wave [place]: 41 EKG Severity - ABNORMAL ECG - EKG Impression: SINUS RHYTHM EKG Impression: LEFT ATRIAL ABNORMALITY EKG Impression: PROBABLE INFERIOR INFARCT, OLD Electronically Signed By: Lizeth Flores 19-Mar-2017 22:49:16
--- NOTE | 2017-03-19 21:40 | EDPHY ---
H & P Time Seen by Provider: 03/19/17 21:39 HPI/ROS: CHIEF COMPLAINT: Shortness of breath HISTORY OF PRESENT ILLNESS: This patient is a 72-year-old female with longstanding history of COPD who presents to the Emergency Department via EMS complaining of dyspnea worsening since returning home from the hospital yesterday. She was admitted on 03/17 for COPD exacerbation presenting with worsening shortness of breath; at time of discharge, she felt better, but she reports recurrent shortness of breath beginning last night and increasing in severity today. She also describes chest pressure all day long making it difficult for her to breathe. COPD exacerbations always cause chest pressure, and this cp is not changed from her usual sx. She used a DuoNeb once this morning and felt better after the DuoNeb. No further inhaler or nebulized breathing treatment use today. Upon discharge from the hospital, she received rx's for 20mg prednisone BID and azithromycin and reports compliance with both medications. She denies any additional complaints; cough, weakness, or lightheadedness. Medical history also includes chronic pain with chronic opiate use. REVIEW OF SYSTEMS: Constitutional: No fever, no chills Eyes: No visual changes ENT: No sore throat Respiratory: As in HPI Cardiac: No chest pain Gastrointestinal: No nausea, no vomiting, no abdominal pain Genitourinary: No hematuria, no dysuria Musculoskeletal: No leg pain or swelling Skin: No rash Neurological: No headache, no numbness, no weakness Psychiatric: No depression Past Medical/Surgical History: Prior medical records reviewed, including admission on 03/17 and subsequent discharge on 03/18. 1. COPD, chronically steroid dependent and immune suppressed 2. Hypothyroidism 3. Depression 4. Chronic pain with chronic opiate use 5. History of scoliosis with spinal fusion present from cervical region to sacrum Social History: Smokes occasionally Lives independently in [place] Daughter lives in [place] Smoking Status: Current some day smoker Physical Exam: General Appearance: Alert, pleasant, normal respiratory rate, oxygen saturation 95% on her usual 2 L of oxygen by nasal cannula Eyes: Pupils equal and round, no conjunctival pallor or injection ENT, Mouth: Mucous membranes moist Neck: Normal inspection Respiratory: Normal respiratory rate, Scattered end respiratory wheezing Cardiovascular: Regular rate and rhythm Gastrointestinal: Abdomen is soft and non-tender Neurological: A&O, nonfocal exam Skin: Warm and dry, no rash Extremities: Nontender, no pedal edema Psychiatric: Mood and affect normal Constitutional: Initial Vital Signs Temperature (C) 36.7 C 03/19/17 21:33 Heart Rate 95 03/19/17 21:33 Respiratory Rate 20 03/19/17 21:33 Blood Pressure 139/68 H 03/19/17 21:33 O2 Sat (%) 96 03/19/17 21:33 O2 Delivery Mode Nasal Cannula O2 (L/minute) 2 Allergies/Adverse Reactions: No Allergies [NKDA] Allergy (Verified 03/19/17 21:39) Home Medications: Medication Instructions Recorded Aspirin [Aspirin 81mg (*)] 81 mg PO DAILY 01/16/17 Cholecalciferol Vit D3 [Vitamin D3 2,000 units PO DAILY 01/16/17 (*)] Escitalopram Oxalate [Lexapro 10 10 mg PO DAILY 01/16/17 MG] Herbals/Supplements -Info Only 1 ea PO DAILY 01/16/17 LEVOTHYROXINE SODIUM [Tirosint 50 mcg PO DAILY 01/16/17 50mcg] Pregabalin [Lyrica 75mg (*)] 75 mg PO BID 01/16/17 Sulfamethoxazole/Trimethoprim 2 each PO BID 01/16/17 [Bactrim SS] Thyroid,Pork [ARMOUR THYROID] 15 mg PO DAILY 01/16/17 clonazePAM [Clonazepam] 1 mg PO HS PRN 01/16/17 Azithromycin [Azithromycin Oral 3 ml PO BID 03/16/17 Liquid] Calcium Carbonate/Vitamin D3 1 each PO BID 03/16/17 [CALCIUM 600 + VIT D TABLET] Levalbuterol Tartrate 2 puffs IH Q6H PRN 03/16/17 [Levalbuterol Tartrate Hfa] Mirabegron [Myrbetriq] 50 mg PO DAILY 03/16/17 PREDNISONE 20 mg PO BID 03/16/17 oxyCODONE HCL/ACETAMINOPHEN 1 each PO QID PRN 03/16/17 [Percocet 5-325 mg Tablet] predniSONE 20 mg PO BID tablet 03/18/17 Medical Decision Making - Diagnostics EKG Interpretation: EKG interpreted by me reveals sinus rhythm, rate 92; left atrial abnormality; probable old inferior infarct. This is unchanged from previous obtained on 2016. Imaging Results: Imaging Impressions Chest X-Ray 03/19/17 21:40 Impression: 1. Sequela of prior thoracolumbar arthrodesis for scoliosis. 2. Peribronchial thickening with left basilar diskoid subsegmental atelectasis versus minimal infiltrate (versus fibrosis), and tiny pleural effusions and/or scarring. 3. Stable miliary nodular pattern. ED Course/Re-evaluation: 72-year-old female with history of COPD presents with complaint of worsening dyspnea since return home from the hospital yesterday. She reports compliance with prednisone, azithromycin, and nebulizer inhaler use. At time of presentation, she is alert and resting comfortably. O2 sat is 98% on 2L via NC. She has end expiratory wheezing on exam. Will proceed with labs, chest x-ray, and EKG. 3ml IH DuoNeb administered. EKG obtained and is unchanged from previous. Chest x-ray reviewed and is non- acute. Labs obtained and reviewed. Troponin is negative. Chemistries are within normal limits. Patient is anemic at baseline. 2230: On reevaluation, the patient reports feeling much better after DuoNeb treatment and back to her baseline. She denies chest pressure or dyspnea at this time and is eager to go home. Lungs are clear to auscultation. I discussed with her that she should remain on O2 at home as previously and can use her nebulizer treatment up to three times daily. She expresses agreement to this. She is given customary return precautions and will be discharged home in good condition. Differential Diagnosis: Differential diagnosis includes though is not limited to pneumonia, acute respiratory failure, pulmonary embolism, acute coronary syndrome. - Data Points Laboratory Results: Laboratory Results 03/19/17 21:38 03/19/17 21:38 03/19/17 03/19/17 21:38 21:38 WBC 5.99 10^3/uL 10^3/uL (3.80-9.50) RBC 3.19 10^6/uL L 10^6/uL (4.18-5.33) Hgb 11.2 g/dL L g/dL (12.6-16.3) Hct 33.6 % L % (38.0-47.0) MCV 105.3 fL H fL (81.5-99.8) MCH 35.1 pg H pg (27.9-34.1) MCHC 33.3 g/dL g/dL (32.4-36.7) RDW 12.8 % % (11.5-15.2) Plt Count 138 10^3/uL L 10^3/uL (150-400) MPV 10.6 fL fL (8.7-11.7) Neut % (Auto) Not Reported Lymph % (Auto) Not Reported [place] % (Auto) Not Reported Eos % (Auto) Not Reported Baso % (Auto) Not Reported Nucleat RBC Rel Count 0.0 % % (0.0-0.2) Absolute Neuts (auto) Not Reported Absolute Lymphs (auto) Not Reported Absolute Monos (auto) Not Reported Absolute Eos (auto) Not Reported Absolute Basos (auto) Not Reported Absolute Nucleated RBC 0.00 10^3/uL 10^3/uL (0-0.01) Immature Gran % Not Reported Seg Neutrophils % 82 % % Band Neutrophils % 2 % % Lymphocytes % 8 % % Monocytes % 7 % % Metamyelocytes % 1 % % Immature Gran # Not Reported Absolute Seg Neuts 4.91 10^/uL 10^/uL (1.70-6.50) Absolute Band Neuts 0.12 10^3/uL 10^3/uL (0.00-0.70) Absolute Lymphocytes 0.48 10^3/uL L 10^3/uL (1.00-3.00) Absolute Monocytes 0.42 10^3/uL 10^3/uL (0.30-0.80) Absolute Metamyelocyte 0.06 10^3/mL H 10^3/mL (0.00-0.00) Platelet Estimate DECREASED L (ADEQ) Oval Macrocytes 1+ H Sodium 138 mEq/L mEq/L (134-144) Potassium 4.1 mEq/L mEq/L (3.5-5.2) Chloride 98 mEq/L mEq/L (97-110) Carbon Dioxide 31 mEq/l mEq/l (22-31) Anion Gap 9 mEq/L mEq/L (8-16) BUN 22 mg/dL mg/dL (7-23) Creatinine 0.9 mg/dL mg/dL (0.6-1.0) Estimated GFR > 60 Glucose 178 mg/dL H mg/dL (70-100) Calcium 10.0 mg/dL mg/dL (8.5-10.4) Troponin I 0.013 ng/mL ng/mL (0-0.034) Medications Given: Discontinued Medications Albuterol/Ipratropium (Duoneb) 3 ml IH EDNOW ONE Stop: 03/19/17 21:55 Last Admin: 03/19/17 22:06 Dose: 3 ml Departure - Departure Disposition: Home, Routine, Self-Care Clinical Impression: Shortness of breath Condition: Good Instructions: Dyspnea (ED) Additional Instructions: 1. You can use your nebulizer treatment up to three times daily. 2. Make sure to stay on your oxygen at home as we discussed. 3. Return to the Emergency Department for worsening shortness of breath, chest pressure, or other serious concerns. 4. Follow-up with your primary care provider for reevaluation within the next 2- 3 days. Referrals: Juan J Dorantes [Primary Care Provider] - As per Instructions Report Scribed for: Lizeth Flores Report Scribed by: Triny Bartlett Date of Report: 03/19/17 Time of Report: 21:40 Physician Review and Approval Statement: 03/19/17 21:40 Portions of this note were transcribed by a medical records specialist. I personally performed a history, physical exam, medical decision making, and confirmed accuracy of information the transcribed note.
[2017-03-19 21:44] VITALS: O2SAT 95
[2017-03-19 21:45] LABS: ADD DIFF? YES; ADD MORPH? NO; ADD SCAN? NO; ATYPICAL LYMPHOCYTE FLAG 0 (0-99); FRAGMENT RBC FLAG 0 (0-99); HEMATOCRIT 33.6 % (38.0-47.0); HEMOGLOBIN 11.2 g/dL (12.6-16.3); LEFT SHIFT FLG 10 (0-99); LIPEMIA HEMOLYSIS FLAG 80 (0-99); MEAN CELL HEMOGLOBIN 35.1 pg (27.9-34.1); MEAN CELL HEMOGLOBIN CONCENTR. 33.3 g/dL (32.4-36.7); MEAN CELL VOLUME 105.3 fL (81.5-99.8); MEAN PLATELET VOLUME 10.6 fL (8.7-11.7); PLATELET CLUMPS FLAG 0 (0-99); PLATELET COUNT 138 10^3/uL (150-400); RED BLOOD CELL COUNT 3.19 10^6/uL (4.18-5.33); RED CELL DISTRIBUTION WIDTH 12.8 % (11.5-15.2)
[2017-03-19] MEDS ORDERED: IPRATROPIUM/ALBUTEROL 3 ML DEYVIAL IH ONE (21:54)
[2017-03-19 22:09] LABS: ANION GAP 9 mEq/L (8-16); CARBON DIOXIDE 31 mEq/l (22-31); CHLORIDE 98 mEq/L (97-110); CREATININE 0.9 mg/dL (0.6-1.0); GLOMERULAR FILTRATION RATE > 60; GLUCOSE 178 mg/dL (70-100); POTASSIUM 4.1 mEq/L (3.5-5.2); SODIUM 138 mEq/L (134-144)
[2017-03-19 22:11] LABS: MACROCYTES 1+; PLATELET ESTIMATE DECREASED (ADEQ)
[2017-03-19 22:21] LABS: TROPONIN I 0.013 ng/mL (0-0.034)
[2017-03-20 00:22] VITALS: BP 128/85; PULSE 88
== END 2017-03-20 00:22 | disposition home or self-care (01) ==
LOC: EDUNIT#
DX: R06.02 Shortness of breath (principal); J44.9 Chronic obstructive pulmonary disease, unspecified; F17.200 Nicotine dependence, unspecified, uncomplicated; Z79.82 Long term (current) use of aspirin

== ENCOUNTER 2017-07-16 15:11 | Observation (INO) | payer OTHER, MEDICARE ==
--- NOTE | 2017-07-16 17:24 | EDPHY ---
H & P Stated Complaint: increased SOB, cold, aches Time Seen by Provider: 07/16/17 16:42 HPI/ROS: Chief Complaint: Cough, shortness of breath HPI: 72-year-old woman with history of COPD presenting with 3 days of congestion, dry nonproductive cough and worsening shortness of breath. She has had to change her oxygen from 3 liters/minute to 4 liters/minute. Also is complaining of some urine jaw pain. Visiting nurse was at her home today and noted that she seemed to not be feeling well. They contacted physician brought in for further evaluation. Of note the patient had an oxygen saturation of 82% on room air in the waiting room however it was noted that her oxygen tubing was kinked. When her tubing was unkinked her saturations came up to the mid 90s and she felt significantly better. Denies any fevers or chills. She states that she is able to ambulate to the bathroom kitchen and around her home without any difficulties. No pain. She has had a flu shot this year. ROS: 10 point Review of Systems is negative except as noted in the HPI. PMH: COPD, scoliosis Social History: Occasional smoking, no alcohol, no recreational drug use Family History: non-contributory Physical Exam: Gen: Awake, Alert, No Distress HEENT: Nose: no rhinorrhea Eyes: PERRLA, EOMI Mouth: Moist mucosa Neck: Supple, no JVD Chest: nontender, lungs clear to auscultation Heart: S1, S2 normal, no murmur Abd: Soft, non-tender, no guarding Back: no CVA tenderness, no midline tenderness Ext: no edema, non-tender Skin: no rash Neuro: CN II-XII intact, Sensation grossly intact, Strength 5/5 in bilateral upper and lower extremities - Personal History Current Tetanus Diphtheria and Acellular Pertussis (TDAP): Yes - Medical/Surgical History Hx Asthma: Yes Hx Chronic Respiratory Disease: Yes Hx Diabetes: No Hx Cardiac Disease: No Hx Renal Disease: No Hx Cirrhosis: No Hx Alcoholism: No Hx HIV/AIDS: No Hx Splenectomy or Spleen Trauma: No Other PMH: asthma, copd, depression, chronic back pain/surgery, hernia x2 currently present hypothyroid - Social History Smoking Status: Current some day smoker Constitutional: Initial Vital Signs Temperature (C) 37.2 C 07/16/17 15:16 Heart Rate 113 H 07/16/17 15:16 Respiratory Rate 20 07/16/17 15:16 Blood Pressure 118/78 07/16/17 15:16 O2 Sat (%) 82 L 07/16/17 15:16 O2 Delivery Mode Nasal Cannula O2 (L/minute) 3 Allergies/Adverse Reactions: No Allergies [NKDA] Allergy (Verified 03/19/17 21:39) Home Medications: Medication Instructions Recorded Aspirin [Aspirin 81mg (*)] 81 mg PO DAILY 01/16/17 Cholecalciferol Vit D3 [Vitamin D3 2,000 units PO DAILY 01/16/17 (*)] Escitalopram Oxalate [Lexapro 10 10 mg PO DAILY 01/16/17 MG] Herbals/Supplements -Info Only 1 ea PO DAILY 01/16/17 LEVOTHYROXINE SODIUM [Tirosint 50 mcg PO DAILY 01/16/17 50mcg] Pregabalin [Lyrica 75mg (*)] 75 mg PO BID 01/16/17 Sulfamethoxazole/Trimethoprim 2 each PO BID 01/16/17 [Bactrim SS] Thyroid,Pork [ARMOUR THYROID] 15 mg PO DAILY 01/16/17 clonazePAM [Clonazepam] 1 mg PO HS PRN 01/16/17 Azithromycin [Azithromycin Oral 3 ml PO BID 03/16/17 Liquid] Calcium Carbonate/Vitamin D3 1 each PO BID 03/16/17 [CALCIUM 600 + VIT D TABLET] Levalbuterol Tartrate 2 puffs IH Q6H PRN 03/16/17 [Levalbuterol Tartrate Hfa] Mirabegron [Myrbetriq] 50 mg PO DAILY 03/16/17 PREDNISONE 20 mg PO BID 03/16/17 oxyCODONE HCL/ACETAMINOPHEN 1 each PO QID PRN 03/16/17 [Percocet 5-325 mg Tablet] predniSONE 20 mg PO BID tablet 03/18/17 Medical Decision Making ED Course/Re-evaluation: Case discussed with Dr. Okeefe, patient's PCP. She has concerns about the patient being home along with declining health. She has very brittle COPD. Patient has had increasing oxygen requirements any increasing her steroid use. I have discussed with Dr. Kvng Macedo, he will admit to his service. - Data Points Laboratory Results: Laboratory Results 07/16/17 15:30 07/16/17 15:30 07/16/17 07/16/17 07/16/17 15:30 15:30 15:30 WBC 5.92 10^3/uL 10^3/uL (3.80-9.50) RBC 3.57 10^6/uL L 10^6/uL (4.18-5.33) Hgb 12.3 g/dL L g/dL (12.6-16.3) Hct 35.9 % L % (38.0-47.0) MCV 100.6 fL H fL (81.5-99.8) MCH 34.5 pg H pg (27.9-34.1) MCHC 34.3 g/dL g/dL (32.4-36.7) RDW 12.2 % % (11.5-15.2) Plt Count 158 10^3/uL 10^3/uL (150-400) MPV 10.4 fL fL (8.7-11.7) Neut % (Auto) 77.9 % H % (39.3-74.2) Lymph % (Auto) 10.6 % L % (15.0-45.0) Darke % (Auto) 9.8 % % (4.5-13.0) Eos % (Auto) 0.7 % % (0.6-7.6) Baso % (Auto) 0.2 % L % (0.3-1.7) Nucleat RBC Rel Count 0.0 % % (0.0-0.2) Absolute Neuts (auto) 4.61 10^3/uL 10^3/uL (1.70-6.50) Absolute Lymphs (auto) 0.63 10^3/uL L 10^3/uL (1.00-3.00) Absolute Monos (auto) 0.58 10^3/uL 10^3/uL (0.30-0.80) Absolute Eos (auto) 0.04 10^3/uL 10^3/uL (0.03-0.40) Absolute Basos (auto) 0.01 10^3/uL L 10^3/uL (0.02-0.10) Absolute Nucleated RBC 0.00 10^3/uL 10^3/uL (0-0.01) Immature Gran % 0.8 % % (0.0-1.1) Immature Gran # 0.05 10^3/uL 10^3/uL (0.00-0.10) Sodium 144 mEq/L mEq/L (134-144) Potassium 4.4 mEq/L mEq/L (3.5-5.2) Chloride 96 mEq/L L mEq/L (97-110) Carbon Dioxide 37 mEq/l H mEq/l (22-31) Anion Gap 11 mEq/L mEq/L (8-16) BUN 17 mg/dL mg/dL (7-23) Creatinine 0.8 mg/dL mg/dL (0.6-1.0) Estimated GFR > 60 Glucose 113 mg/dL H mg/dL (70-100) Calcium 9.9 mg/dL mg/dL (8.5-10.4) Nasal Influenza A PCR NEGATIVE FOR FLU A (NEGATIVE) Nasal Influenza B PCR NEGATIVE FOR FLU B (NEGATIVE) Departure - Departure Disposition: [facility] Inpatient Acute Clinical Impression: Chronic obstructive pulmonary disease with acute exacerbation Condition: Fair Referrals: MOR OKEEFE [Other] - As per Instructions
[2017-07-16 17:38] LABS: % IMMATURE GRANULYOCYTES 0.8 % (0.0-1.1); ABSOLUTE IMMATURE GRANULOCYTES 0.05 10^3/uL (0.00-0.10); ADD DIFF? NO; ADD MORPH? NO; ADD SCAN? NO; ATYPICAL LYMPHOCYTE FLAG 10 (0-99); FRAGMENT RBC FLAG 0 (0-99); HEMATOCRIT 35.9 % (38.0-47.0); HEMOGLOBIN 12.3 g/dL (12.6-16.3); LEFT SHIFT FLG 0 (0-99); LIPEMIA HEMOLYSIS FLAG 90 (0-99); MEAN CELL HEMOGLOBIN 34.5 pg (27.9-34.1); MEAN CELL HEMOGLOBIN CONCENTR. 34.3 g/dL (32.4-36.7); MEAN CELL VOLUME 100.6 fL (81.5-99.8); MEAN PLATELET VOLUME 10.4 fL (8.7-11.7); PLATELET CLUMPS FLAG 40 (0-99); PLATELET COUNT 158 10^3/uL (150-400); RED BLOOD CELL COUNT 3.57 10^6/uL (4.18-5.33); RED CELL DISTRIBUTION WIDTH 12.2 % (11.5-15.2)
[2017-07-16 17:51] LABS: ANION GAP 11 mEq/L (8-16); CALCIUM 9.9 mg/dL (8.5-10.4); CARBON DIOXIDE 37 mEq/l (22-31); CHLORIDE 96 mEq/L (97-110); CREATININE 0.8 mg/dL (0.6-1.0); GLOMERULAR FILTRATION RATE > 60; GLUCOSE 113 mg/dL (70-100); POTASSIUM 4.4 mEq/L (3.5-5.2); SODIUM 144 mEq/L (134-144)
[2017-07-16] MEDS ORDERED: ACETAMINOPHEN 325 MG TAB PO PRN (19:39)
[2017-07-16] MEDS ORDERED: PROMETHAZINE HCL 25 MG TAB PO PRN (19:39)
[2017-07-16] MEDS ORDERED: ALBUTEROL 3 ML DEYVIAL IH PRN (19:39)
[2017-07-16] MEDS ORDERED: clonazePAM 1 MG TAB PO PRN (19:50)
[2017-07-16] MEDS ORDERED: OXYCODONE/APAP 5/325 TAB PO PRN (19:50)
--- NOTE | 2017-07-16 20:09 | GHP ---
[f rep st] HISTORY AND PHYSICAL DATE OF ADMISSION: 07/16/2017 CHIEF COMPLAINT: Not feeling well. HISTORY OF PRESENT ILLNESS: This is a 72-year-old female with steroid- and oxygen-dependent COPD, wh o was sent in by her home nurse today. She tells me that she has been complaining of a dry nonproduc tive cough, as well as worsening shortness of breath over the past few days. She also has some pain in her jaw. She quit using her inhalers about 2-3 weeks ago because they make her feel jittery. No fevers at home. PAST MEDICAL/SURGICAL HISTORY: 1. COPD, steroid- and oxygen-dependent. 2. Chronic respiratory failure. 3. Hypothyroid. 4. Depression. 5. Chronic pain on continuous narcotics. 6. Scoliosis, status post back fusion. 7. 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 MEDICATIONS: Please see medication reconciliation. ALLERGIES: No known drug allergies. SOCIAL HISTORY: She lives at home alone. She continues to smoke, she says a very small amount. She does not drink. FAMILY HISTORY: Reviewed and noncontributory. REVIEW OF SYSTEMS: 10-point review of systems is conducted and is negative, except for HPI. PHYSICAL EXAMINATION: VITAL SIGNS: Blood pressure 114/73, heart rate 95, respiration rate 18, satur ating 95% on 3.5 L, temperature 37.3. GENERAL: The patient is a pleasant female who appears comfort able sitting in bed, in no acute distress. HEENT: Normocephalic, atraumatic. CARDIOVASCULAR: Regu lar rate and rhythm. No murmurs, rubs, or gallops. PULMONARY: Very diminished breath sounds bilate rally. There are scant inspiratory wheezes. ABDOMEN: Soft, nontender, nondistended. SKIN: No rolan h. : No Resendiz. NEUROLOGIC: Alert and oriented x3. She is moving all extremities. PSYCHIATRIC: Normal mood and affect. LABORATORY: Hemoglobin 12.3, bicarb 37. She is negative for the flu. DATA: 1. I discussed this with Dr. Hernandez. Will admit to med/surg. 2. Chest x-ray, which I personally reviewed and interpreted, shows hyperexpanded lung dye, mild i ncreased pulmonary vasculature. She has many small nodule/granulomas which are unchanged. She has s ignificant back hardware in place. IMPRESSION AND PLAN: This is a 72-year-old female with mild chronic obstructive pulmonary disease ex acerbation. 1. Chronic obstructive pulmonary disease exacerbation: Mild. She does have an increase in her oxyg en requirement. Reasonable to admit or monitor her closely on oxygen. Increase her steroids. Sched ule her nebulizers and inhalers. I do not think she needs antibiotics at this point. 2. Chronic respiratory failure due to chronic obstructive pulmonary disease: Baseline oxygen is abo ut 3 L. she is currently needing 4 L. 3. Chronic pain on continuous narcotics. 4. 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 5. Hypothyroid: Synthroid. 6. Elevated bicarbonate: She appears to be a chronic retainer. This is not significantly elevated from her baseline. 7. Code status is full. /[id number]/MODL
[2017-07-16] MEDS: predniSONE 20 MG TAB PO SCH (20:12)
[2017-07-16] MEDS: PREGABALIN 75 MG CAP PO SCH (20:12)
[2017-07-16] MEDS: SULFAMETHOX/TMP 800/160 MG 1 TAB PO SCH (20:50)
[2017-07-16] MEDS: IPRATROPIUM/ALBUTEROL 3 ML DEYVIAL IH SCH (21:53)
[2017-07-17 04:56] LABS: % IMMATURE GRANULYOCYTES 1.4 % (0.0-1.1); ABSOLUTE IMMATURE GRANULOCYTES 0.06 10^3/uL (0.00-0.10); ADD DIFF? NO; ADD MORPH? NO; ADD SCAN? NO; ATYPICAL LYMPHOCYTE FLAG 10 (0-99); FRAGMENT RBC FLAG 0 (0-99); HEMOGLOBIN 11.9 g/dL (12.6-16.3); LEFT SHIFT FLG 0 (0-99); LIPEMIA HEMOLYSIS FLAG 90 (0-99); MEAN CELL HEMOGLOBIN 33.9 pg (27.9-34.1); MEAN CELL VOLUME 99.7 fL (81.5-99.8); MEAN PLATELET VOLUME 10.2 fL (8.7-11.7); PLATELET CLUMPS FLAG 0 (0-99); PLATELET COUNT 145 10^3/uL (150-400); RED BLOOD CELL COUNT 3.51 10^6/uL (4.18-5.33); RED CELL DISTRIBUTION WIDTH 12.2 % (11.5-15.2)
[2017-07-17 05:13] LABS: ANION GAP 13 mEq/L (8-16); CALCIUM 9.6 mg/dL (8.5-10.4); CARBON DIOXIDE 33 mEq/l (22-31); CHLORIDE 98 mEq/L (97-110); CREATININE 0.8 mg/dL (0.6-1.0); GLOMERULAR FILTRATION RATE > 60; GLUCOSE 144 mg/dL (70-100); POTASSIUM 4.4 mEq/L (3.5-5.2); SODIUM 144 mEq/L (134-144)
[2017-07-17] MEDS ORDERED: LEVOTHYROXINE 75 MCG TAB PO SCH (06:00)
[2017-07-17] MEDS: IPRATROPIUM/ALBUTEROL 3 ML DEYVIAL IH SCH ×2 (06:20→12:38)
[2017-07-17 08:02] VITALS: TEMP 98.3
[2017-07-17] MEDS: PREGABALIN 75 MG CAP PO SCH (08:09)
[2017-07-17] MEDS: predniSONE 20 MG TAB PO SCH (08:09)
[2017-07-17] MEDS: SULFAMETHOX/TMP 800/160 MG 1 TAB PO SCH (08:10)
[2017-07-17] MEDS ORDERED: ANORO ELLIPTA IN SCH (09:00)
[2017-07-17] MEDS ORDERED: Mirabegron [Myrbetriq] 50 MG PO SCH (09:00)
[2017-07-17] MEDS ORDERED: ASPIRIN 81 MG CHEWABLE TAB PO SCH (09:00)
[2017-07-17] MEDS ORDERED: ENOXAPARIN 40 MG/0.4 ML SYR SC SCH (09:00)
[2017-07-17] MEDS ORDERED: PROPRANOLOL HCL 10 MG TAB PO SCH (09:00)
[2017-07-17] MEDS ORDERED: ESCITALOPRAM OXALATE 10 MG TAB PO SCH (09:00)
--- NOTE | 2017-07-17 10:28 | HOSPPROG ---
Hospitalist Progress Note Assessment/Plan: Patient is a 68-year-old female who is steroid and oxygen dependent. She came to the emergency room because she had an operative cough as well as worsening shortness of breath over the past few days. She quit using her inhalers approximately 2-3 weeks ago because they made her feel jittery. Today is my 1st encounter with the patient. Chart reviewed. * COPD exacerbation -steroids increased, nebulizers and inhalers resume. -chest x-ray does not show pneumonia -negative for influenza * chronic respiratory failure due to COPD -her baseline is 3 L, she is currently on 2 L *Chronic pain on continuous chronic opioids *hypothyroid: Synthroid Plan: dc home / f/u with Dr Ghotra Subjective: Micheal feels back to baseline. Objective: Vital Signs Temp Pulse Resp BP Pulse Ox 36.8 C 93 16 110/50 L 95 07/17/17 07:59 07/17/17 07:59 07/17/17 07:59 07/17/17 07:59 07/17/17 07:59 Laboratory Results 07/17/17 04:48 07/17/17 04:48 07/16/17 07/17/17 07/18/17 05:59 05:59 05:59 Intake Total 500 Balance 500 - Physical Exam Constitutional: chronically ill appearing, cachectic Eyes: PERRL Ears, Nose, Mouth, Throat: hearing normal Cardiovascular: regular rate and rhythym Respiratory: no respiratory distress, reduced air movement (mid lobes down) Skin: warm Musculoskeletal: generalized weakness Neurologic: AAOx3 Psychiatric: interacting appropriately, not anxious ICD10 Worksheet Patient Problems: Problems Problem Status Onset Chronic obstructive pulmonary disease with acute exacerbation Acute COPD exacerbation Acute COPD with exacerbation Acute Chronic Disease Mgmt/Transitional Care Acute Dehydration Acute Dyspnea Acute Weakness Acute Weakness Acute
--- NOTE | 2017-07-17 12:41 | GDS ---
[f rep st] DISCHARGE SUMMARY DISCHARGE DIAGNOSES: 1. Chronic obstructive pulmonary disease exacerbation. 2. Chronic respiratory failure due to COPD. 3. Chronic pain, on continuous chronic opioids. 4. Hypothyroidism. 5. Severe protein malnutrition with a BMI of 15. HISTORY OF PRESENT ILLNESS: Briefly, this patient is a 72-year-old female who has steroid and oxygen dependent COPD. She was sent in by her home care nurse. She had been having a dry nonproductive co ugh as well as worsening shortness of breath. She also has quit using her inhalers because they make her feel jittery. She has had no fevers at home. HOSPITAL COURSE: During her hospital stay, her prednisone dose was increased. She is feeling back t o her baseline. She will be discharged home, to have further follow up with Dr. Ghotra in the outpatient setting. Hospital course by problem: 1. COPD exacerbation. She was checked for the flu and was negative. Her chest x-ray does not show pneumonia. She is feeling back to her baseline. She will continue prednisone and further follow up with Dr. Ghotra. 2. Chronic respiratory failure. She is better than her baseline. She is usually on 3 L. She is on 2 L here. 3. Chronic pain, on continuous chronic opioids. Her home medications have been continued. 4. Hypothyroidism. Resume Synthroid. DISCHARGE CONDITION: Stable. Blood pressure is 110/50, respiratory rate is 16, pulse is 93, tempera ture is 36.8 Celsius, O2 saturation on 2 L 95%. MEDICATIONS AT DISCHARGE: Please see the MAR. DISCHARGE INSTRUCTIONS: 1. Follow up with Dr. Ghotra. 2. Recommended that she quit smoking. 3. Do not smoke any time she is around her oxygen. /[id number]/MODL
[2017-07-17 12:46] VITALS: PULSE 82; RESP 18
[2017-07-17 12:51] VITALS: BP 103/69; O2SAT 99
--- NOTE | 2017-07-17 13:08 | ASMTCMCOM ---
CM Note CM Note Notes: Reviewed chart; spoke w/ HAYLEY Burden and Ivania Lehman NP re: d/c poc. Pt admitted w/ COPD exacerbation, chronic resp failure due to COPD, chronic pain w/ narcotic use, hypothyroidism and severe protein malnutrition. Pt lives alone in [place]. Per MD notes, pt to discharge home independently w/ oxygen. Pt to quit smoking. No IM signed, pt admission < 24 hrs. Pt to f/u as directed. Met w/ pt to discuss current diet/nutritional needs - pt reports having a "freezer full of food." Stating "all I need is some half and half for my coffee." Offered pt Meals on Wheels information; pt seemed interested, accepted flier. Discussed transportation home; pt reports having money at her home to pay a refrigerator cabinetmaker. Pt does not have any family, friends or neighbors to assist w/ a ride at this time. Pt given phone number for [employer] ; pt stated "don't even waste your time calling one of those medical van folks; Medicare won't pay for it." Offered pt additional assistance/services, pt declined. Pt to call [employer] when ready for d/c. Update provided to Ivania Lehman and RN. CM avail for any further issues or concerns. Date Signed: 07/17/2017 01:07 PM Electronically Signed By:Shelly Clemente RN
--- NOTE | 2017-07-17 18:02 | ASDISCHSUM ---
Discharge Information Plan Status:Home with DME or Oxygen Medically Cleared to Leave:07/17/2017 Discharge Date:07/17/2017 05:20 PM CM D/C Disposition:Home, Routine, Self-Care ADT D/C Disposition:Home, Routine, Self-Care Projected Discharge Date:07/17/2017 05:20 PM Transportation at D/C:Taxicab Discharge Delay Reason: Follow-Up Date:07/17/2017 05:20 PM Discharge Slot:2 - 12:01 pm - 18:00 pm Final Diagnosis:COPD w/ exacerbation, chronic resp failure, chronic pain, hypothyroidism, severe pro tein malnutrition Placement Information Patient Contact Information Contact Name:GERSON Relationship:Daughter Address: City: [facility] Phone: State/[employer] Code: Email: Financial Information Financial Class: Primary Plan Desc:MEDICARE OUTPATIENT Primary Plan Number:[id number] Secondary Plan Desc:AARP/MDR SUPPLEMENT Secondary Plan Number:[id number] Assessment Information [facility] CM Progress Note CM Note CM Note Notes: Reviewed chart; spoke w/ HAYLEY Burden and Ivania Lehman NP re: d/c poc. Pt admitted w/ COPD exacerbation, chronic resp failure due to COPD, chronic pain w/ narcotic use, hypothyroidism and severe protein malnutrition. Pt lives alone in [place]. Per MD notes, pt to discharge home independently w/ oxygen. Pt to quit smoking. No IM signed, pt admission < 24 hrs. Pt to f/u as directed. Met w/ pt to discuss current diet/nutritional needs - pt reports having a "freezer full of food." Stating "all I need is some half and half for my coffee." Offered pt Meals on Wheels information; pt seemed interested, accepted flier. Discussed transportation home; pt reports having money at her home to pay a cable systems installer. Pt does not have any family, friends or neighbors to assist w/ a ride at this time. Pt given phone number for [employer] ; pt stated "don't even waste your time calling one of those medical van folks; Medicare won't pay for it." Offered pt additional assistance/services, pt declined. Pt to call [facility] when ready for d/c. Update provided to Ivania Lehman and RN. CM avail for any further issues or concerns. Date Signed: 07/17/2017 01:07 PM Electronically Signed By:Shelly Clemente RN Intervention Information Intervention Type:Meals On Wheels Date of Service:07/17/2017 05:59 PM Patient Type:Observation Staff Member:HAYLEY Clemente Taylor Hours:0.25 Discipline: Severity: Comment:Pt given info for Meals on Wheels d/t to decreased BMI, nutritional needs. Pt seemed interested, accepted flier. Instructions provided on how to obtain services.
== END 2017-07-17 17:20 | disposition home or self-care (01) ==
LOC: F3E 19:56
PROVIDERS: ADMIT Student in an Organized Health Care Education/Training Program; ATTEND Student in an Organized Health Care Education/Training Program
DX: J44.1 Chronic obstructive pulmonary disease with (acute) exacerbation (principal); J96.10 Chronic respiratory failure, unspecified whether with hypoxia or hypercapnia; G89.29 Other chronic pain; F11.20 Opioid dependence, uncomplicated; F17.210 Nicotine dependence, cigarettes, uncomplicated; E03.9 Hypothyroidism, unspecified; E43 Unspecified severe protein-calorie malnutrition; Z68.1 Body mass index [BMI] 19.9 or less, adult; M41.9 Scoliosis, unspecified; Z79.51 Long term (current) use of inhaled steroids; B95.62 Methicillin resistant Staphylococcus aureus infection as the cause of diseases classified elsewhere; Z99.81 Dependence on supplemental oxygen
CPT/HCPCS: 71020; 97161; 97165; G0378; G8978; G8979; G8980; G8987; G8988; G8989; J1650

== ENCOUNTER 2017-10-21 15:00 | Inpatient (IN) | payer OTHER, MEDICARE ==
--- NOTE | 2017-10-21 15:33 | EDPHY ---
H & P Stated Complaint: left hip pain r/ t fall today - Personal History Current Tetanus/Diphtheria Vaccine: Yes Tetanus Vaccine Date: < 10 years - Medical/Surgical History Hx Asthma: Yes Hx Chronic Respiratory Disease: Yes Hx Diabetes: No Hx Cardiac Disease: No Hx Renal Disease: No Hx Cirrhosis: No Hx Alcoholism: No Hx HIV/AIDS: No Hx Splenectomy or Spleen Trauma: No Other PMH: asthma, copd, depression, chronic back pain/surgery, hernia x2 currently present hypothyroid - Social History Smoking Status: Current some day smoker Time Seen by Provider: 10/21/17 15:18 HPI/ROS: CHIEF COMPLAINT: Left hip pain post mechanical fall HISTORY OF PRESENT ILLNESS: 72-year-old female arrives by ambulance, not a trauma activation, complaining of acute left hip pain after mechanical fall. Patient lives by herself, walking into her garage which was poorly lit, missed the last step and fell forward impacting her left hip on the parked car and then onto the ground. She also impacted her left temporal parietal region and her left elbow. No loss of consciousness. No periods of prolonged immobility on the floor. No syncope. This was a purely mechanical incident. No midline C -spine pain. No peripheral paresthesia, weakness, numbness. Last oral intake was dinner last evening. REVIEW OF SYSTEMS: A ten point review of systems was performed and is negative with the exception of the items mentioned in the HPI PAST MEDICAL/SURGICAL HISTORY: no anticoagulant use, no relevant medical/ surgical history SOCIAL HISTORY: denies alcohol use at time of incident PHYSICAL EXAM 1) GENERAL: Well-developed, well-nourished, alert and oriented. Appears to be in no acute distress. Answering questions appropriately. GCS 15 2) HEAD: Normocephalic, left temporoparietal hematoma. 3) HEENT: Pupils equal, round, reactive to light bilaterally. Negative Horners. Nasopharynx, oropharynx, clear. No deformity or angulation of nose. No septal hematoma. No rhinorrhea. No oral trauma. Ears bilaterally with normal tympanic membranes. No hemotympanum. No fluid or blood in the external auditory canal. No raccoon eyes. No Harris sign. 4) NECK: No cervical collar is on. Posterior cervical spine is nontender, no stepoff, no effusion. Full range of motion which does not elicit any midline cervical spine pain, no posterior midline tenderness, no step-off. 5) LUNGS: Clear to auscultation bilaterally, no wheezes, no rhonchi, no retractions. No obvious signs of trauma. No chest wall pain. No flaring, no grunting. Moving symmetrically. No crepitus. 6) HEART: [Regular rate and rhythm, 7) ABDOMEN: No guarding, no rebound, no focal tenderness, no peritoneal signs, no signs of trauma, no ecchymosis 8) MUSCULOSKELETAL: Left upper extremity: Left elbow abrasion soon avulsion, full pain-free range of motion including supination pronation. Proximally distally nontender. Left lower extremity: Tender to palpation left hip with shortening. DP PT pulses present and brisk distally. Soft compartments. Otherwise, Moving all extremities, no focal areas of tenderness, no obvious trauma. 9) BACK: No midline vertebral tenderness, no fluctuance, no step-off, no obvious trauma, no visual or palpable abnormality. 10) SKIN: No laceration. No abrasion DIFFERENTIAL DIAGNOSIS: In no particular include but limited to fracture, dislocation, fracture-dislocation (Lester,Coty Amalia) Constitutional: Initial Vital Signs Temperature (C) 36.5 C 10/21/17 15:09 Heart Rate 68 10/21/17 15:09 Respiratory Rate 20 10/21/17 15:09 Blood Pressure 107/81 H 10/21/17 15:09 O2 Sat (%) 100 10/21/17 15:09 O2 Delivery Mode Nasal Cannula O2 (L/minute) 3 Allergies/Adverse Reactions: trazodone Allergy (Verified 10/21/17 16:48) BAL and SOB Home Medications: Medication Instructions Recorded Aspirin [Aspirin 81mg (*)] 81 mg PO DAILY 01/16/17 Cholecalciferol Vit D3 [Vitamin D3 2,000 units PO DAILY 01/16/17 (*)] Escitalopram Oxalate [Lexapro 10 10 mg PO DAILY 01/16/17 MG] Pregabalin [Lyrica 75mg (*)] 75 mg PO BID 01/16/17 Sulfamethoxazole/Trimethoprim 1 each PO BID 01/16/17 [Bactrim SS] clonazePAM [Clonazepam] 1 mg PO HS 01/16/17 Mirabegron [Myrbetriq] 50 mg PO DAILY 03/16/17 Cyanocobalamin [Vitamin B12 1,000 mcg IM TU 07/16/17 1000MCG/ML (*)] Levothyroxine [Synthroid 75 mcg 75 mcg PO DAILY06 07/16/17 (*)] Propranolol HCl [Inderal 10mg (*)] 10 mg PO DAILY 07/16/17 Calcium Carbonate [Oyster Shell 500 mg PO BID 10/21/17 Calcium 500 mg (*)] Herbals/Supplements -Info Only 1 ea PO DAILY 10/21/17 Solifenacin Succinate [Vesicare] 10 mg PO DAILY 10/21/17 Umeclidinium Brm/Vilanterol Tr 1 puffs IH DAILY 10/21/17 [Anoro Ellipta 62.5-25 Mcg INH] oxyCODONE/APAP 5/325 [Percocet 1 tab PO Q4H PRN 10/21/17 5/325 (*)] predniSONE 2.5 mg PO BIDMEAL 10/21/17 Medical Decision Making - Diagnostics EKG Interpretation: 12-lead EKG interpreted by me; official reading is in trace master. My interpretation is sinus rhythm with diffuse ST elevation but without reciprocal changes, rate 66. (Wai Canales) ED Course/Re-evaluation: 3:40 p.m.: Head CT ordered in this patient for trauma for the following indication: Greater than 65 years old and left temporoparietal head injury. Will also obtain x-rays. She remains NPO since dinner last night. No anticoagulant use history. 4:22 p.m.: Dr. Canales consulted with orthopedics PA with Dr. Edwin Polanco (Coty Batista) Other Provider: PHYSICIAN DOCUMENTATION: The patient was evaluated and managed by the Physician Fiscal Technician and myself. I have reviewed the chart and agree with the findings and plan of care as documented. In addition, I examined the patient myself. History confirmed as mechanical fall. Physical findings as follows: Left foot is externally rotated leg is shortened but has normal motor and sensory. Left hip x-ray personally interpreted as intertrochanteric subtrochanteric hip fracture. Cal BLEVINS for Sumeet Polanco at 1620. Also discussed with Dr. Polanco in person. Admit hospitalist, ortho consultation for left hip fracture, inability to walk, surgical intervention indicated. I am the secondary supervising physician. (Wai Canales) - Data Points Laboratory Results: Laboratory Results 10/21/17 16:45 10/21/17 16:45 Medications Given: Calcium Carbonate (Oyster Shell Calcium) 500 mg PO BID NORBERTO Stop: 04/20/18 08:59 Last Admin: 10/22/17 09:03 Dose: 500 mg Cephalexin HCl (Keflex) 1,000 mg PO Q8HRS NORBERTO PRN Reason: Protocol Stop: 10/22/17 14:01 Last Admin: 10/22/17 06:02 Dose: 1,000 mg Cholecalciferol (Vitamin D) 2,000 units PO DAILY NORBERTO Stop: 04/20/18 08:59 Last Admin: 10/22/17 09:02 Dose: 2,000 units Enoxaparin Sodium (Lovenox) 40 mg SC DAILY NORBERTO Stop: 04/20/18 08:59 Last Admin: 10/22/17 09:56 Dose: 40 mg Escitalopram Oxalate (Lexapro) 10 mg PO DAILY NORBERTO Stop: 04/20/18 08:59 Last Admin: 10/22/17 09:02 Dose: 10 mg Lactated Ringer's (Lr) 1,000 mls @ 75 mls/hr IV CONT NORBERTO Stop: 04/20/18 05:59 Last Admin: 10/22/17 06:02 Dose: 1,000 mls Levothyroxine Sodium (Synthroid) 75 mcg PO DAILY06 NORBERTO Stop: 04/20/18 05:59 Last Admin: 10/22/17 06:03 Dose: 75 mcg Miscellaneous Medication (Mirabegron [Myrbetriq]) 50 mg PO DAILY NORBERTO Stop: 04/20/18 08:59 Last Admin: 10/22/17 09:57 Dose: Not Given Miscellaneous Medication (Umeclidinium Brm/Vilanterol Tr [Anoro Ellipta 62.5-25 Mcg Inh]) 1 puffs IH DAILY NORBERTO Stop: 04/20/18 08:59 Last Admin: 10/22/17 09:50 Dose: 1 puffs Oxycodone/Acetaminophen (Percocet 5/325) 1 - 2 tab PO Q4HRS PRN PRN Reason: Pain, Severe Able to Take PO Stop: 11/01/17 09:45 Last Admin: 10/22/17 09:56 Dose: 1 tab Prednisone (Prednisone) 2.5 mg PO BIDMEAL [facility] Stop: 04/20/18 07:59 Last Admin: 10/22/17 09:03 Dose: 2.5 mg Pregabalin (Lyrica) 75 mg PO BID [facility] Stop: 04/20/18 08:59 Last Admin: 10/22/17 09:04 Dose: 75 mg Propranolol HCl (Inderal) 10 mg PO DAILY [facility] Stop: 04/20/18 08:59 Last Admin: 10/22/17 10:12 Dose: Not Given Solifenacin (Vesicare) 10 mg PO DAILY [facility] Stop: 04/20/18 08:59 Last Admin: 10/22/17 09:05 Dose: 10 mg Trimethoprim/Sulfamethoxazole (Sulfamethoxazole-Tmp Ss Tablet) 1 ea PO BID [facility] PRN Reason: Protocol Stop: 11/21/17 08:59 Last Admin: 10/22/17 09:03 Dose: 1 ea Discontinued Medications Bacitracin (Bacitracin Syringe) Confirm Administered Dose 50,000 units IRR .STK- MED ONE Stop: 10/21/17 18:17 Last Admin: 10/22/17 02:15 Dose: Not Given Bupivacaine HCl (Sensorcaine 0.25% Sdv) Confirm Administered Dose 30 ml .ROUTE .STK-MED ONE Stop: 10/21/17 18:16 Last Admin: 10/21/17 22:06 Dose: Not Given Epinephrine HCl (Epinephrine) Confirm Administered Dose 1 mg .ROUTE .STK-MED ONE Stop: 10/21/17 18:16 Last Admin: 10/21/17 22:05 Dose: Not Given Hydromorphone HCl (Dilaudid) 0.5 mg IVP EDNOW ONE Stop: 10/21/17 15:47 Last Admin: 10/21/17 15:57 Dose: 0.5 mg Cefazolin Sodium (Cefazolin Syringe) 2 gm in 20 mls @ 200 mls/hr IVP ONCALL ONE PRN Reason: Protocol Stop: 10/21/17 17:10 Last Admin: 10/21/17 19:08 Dose: 20 mls Ropivacaine 80 mg/ Epinephrine HCl 0.2 mg/ Ketorolac Tromethamine 30 mg/ Morphine Sulfate 10 mg/ Miscellaneous Information 42.2 mls @ 0 mls/hr IU ONCALL ONE PRN Reason: As Directed Stop: 10/21/17 17:06 Last Admin: 10/21/17 22:08 Dose: Not Given Lactated Ringer's (Lr) 1,000 mls @ 0 mls/hr IV ONCE ONE PRN Reason: As Directed Stop: 10/21/17 18:14 Last Admin: 10/21/17 22:05 Dose: Not Given Oxycodone HCl (Oxycontin) 10 mg PO ONCALL ONE Stop: 10/21/17 17:06 Last Admin: 10/21/17 22:09 Dose: Not Given Polymyxin B Sulfate (Polymyxin B Syringe) Confirm Administered Dose 500,000 unit IRR .STK-MED ONE Stop: 10/21/17 17:27 Last Admin: 10/21/17 22:06 Dose: Not Given Polymyxin B Sulfate (Polymyxin B Syringe) Confirm Administered Dose 500,000 unit IRR .STK-MED ONE Stop: 10/21/17 18:17 Last Admin: 10/22/17 02:15 Dose: Not Given Departure - Departure Disposition: [facility] Acute Clinical Impression: Abrasion of left elbow, initial encounter Closed left subtrochanteric femur fracture Qualifiers: Encounter type: initial encounter Fracture alignment: displaced Qualified Code( s): S72.22XA - Displaced subtrochanteric fracture of left femur, initial encounter for closed fracture Head injury due to trauma Qualifiers: Encounter type: initial encounter Qualified Code(s): S09.90XA - Unspecified injury of head, initial encounter Condition: Fair
[2017-10-21] MEDS ORDERED: HYDROmorphONE/DILAUDID 1 MG/ML INJ IVP ONE (15:46)
[2017-10-21] MEDS ORDERED: ONDANSETRON DISINTEGRATING 4 MG TAB PO PRN (16:47)
[2017-10-21] MEDS ORDERED: HYDROmorphONE/DILAUDID 1 MG/ML INJ IVP PRN ×2 (16:47→19:43)
[2017-10-21] MEDS ORDERED: ACETAMINOPHEN 325 MG TAB PO PRN (16:47)
[2017-10-21] MEDS ORDERED: ONDANSETRON 4 MG/2 ML VIAL IVP PRN ×2 (16:47→19:43)
--- NOTE | 2017-10-21 16:55 | CPEKG ---
Heart Rate: 66 RR Interval: 909 P-R Interval: 180 QRSD Interval: 92 QT Interval: 444 QTC Interval: 466 P [place]: 27 QRS [place]: 58 T Wave [place]: 51 EKG Severity - ABNORMAL ECG - EKG Impression: SINUS RHYTHM EKG Impression: BORDERLINE INFERIOR Q WAVES EKG Impression: ST ELEVATION SUGGESTS PERICARDITIS Electronically Signed By: Wai Canales 21-Oct-2017 17:08:56
[2017-10-21] MEDS ORDERED: NS 1,000 ML IV SCH (17:00)
[2017-10-21] MEDS ORDERED: ceFAZolin 2 GM/SWFI 2 GM/20 ML SYR IVP ONE (17:05)
[2017-10-21] MEDS ORDERED: ROPIVACAINE 0.2% 80 MG, EPINEPHrine 0.2 MG, KETOROLAC TROMETHAMINE 30 MG, morphINE 10 M... IU ONE (17:05)
[2017-10-21 17:09] LABS: PLATELET COUNT 104 10^3/uL (150-400)
[2017-10-21 17:25] LABS: INR 0.97 (0.83-1.16); PROTIME(PATIENT) 13.1 SEC (12.0-15.0)
[2017-10-21] MEDS ORDERED: POLYMYXIN B SULFATE 500,000 UNIT/10 ML SYR IRR ONE ×2 (17:26→18:16)
--- NOTE | 2017-10-21 17:31 | GDS ---
[f rep st] CONSULTATION ORTHOPEDIC CONSULT HISTORY AND PHYSICAL NOTE DATE OF CONSULTATION: 10/21/2017 CHIEF COMPLAINT: This 72-year-old female presents to the emergency department via ambulance with complaints of left hip pain. HISTORY OF PRESENT ILLNESS: The patient was at home where she lives, she was going down 2 steps into her garage and missed the last step causing her to fall forward and onto her left hip. She also impacted her left temporal region and left elbow. She states that there was no loss of consciousness. This was not a syncopal episode that caused the fall, but a mechanical incident. The patient does complain of left hip pain and deformity. She also complains of a bump on the left posterior side of her head as well as an abrasion over the left elbow. She otherwise complains of no severe headaches, visual changes, confusion, vomiting, numbness or weakness of the extremities. REVIEW OF SYSTEMS: Otherwise negative except as mentioned above. SURGICAL HISTORY: The patient does have a history of spinal surgery with hardware and continued Bactrim treatment for infections since the surgery.. SOCIAL HISTORY: The patient lives at home and does have a caregiver who comes to stay with her regularly. She denies alcohol or smoking. MEDICATIONS: Aspirin, vitamin D, Lexapro, Lyrica, Bactrim, clonazepam, calcium , Myrbetriq, Percocet, Anoro, Ellipta inhaler, vitamin B12, Synthroid, Inderal, prednisone, and VESIcare. ALLERGIES TO MEDICATIONS: The patient states that she has severe allergy to trazodone. PHYSICAL EXAM: GENERAL: The patient is alert, calm, cooperative, resting, supine in the emergency department. She answers questions appropriately throughout the exam. VITAL SIGNS: Stable. HEENT: The patient does have a contusion and swollen area at the left posterior aspect of the skull. It is slightly tender to palpate. Extraocular movements are intact. Nares are patent. Hearing is grossly normal. Oral mucosa are dry. NECK: The patient moves the neck in all directions without pain or limits. No C-spine tenderness , step-offs, or deformities were palpated. LUNGS: Respirations are easy and nonlabored. CARDIOVASCULAR: Distally pulses are brisk in both upper and lower extremities. Capillary refill is brisk in both upper and lower extremities as well. No edema in either upper or lower extremities are present. NEUROLOGIC: Sensation is intact to all fingers and toes to light touch. SKIN: Examination of the skin reveals a superficial abrasion to the left elbow with no surrounding redness, ecchymosis, and no foreign body within the wound. Examination of the left hip reveals no redness, warmth, ecchymosis, or break to the skin. MUSCULOSKELETAL: Examination of the patient's left hip reveals an obvious deformity over the anterior hip with tenderness to palpate. Her left leg is also shortened and externally rotated. Any sort of movement does cause increased pain at the left hip. No pain is noted upon examination of the patient's other extremities except as mentioned above. DIAGNOSTIC DATA: X-rays of the left hip were reviewed with Dr. Polanco. There is a left intertrochanteric comminuted hip fracture. The angle between the femoral neck and femoral shaft is 90 degrees. The pelvic ring appears intact. Evidence of her previous low lumbar and left SI joint fusion surgery is present. ASSESSMENT AND PLAN: The patient will need to have her hip fracture repaired, with a left hemiarthroplasty. Dr. Polanco is currently determining whether she may be a candidate for surgery tonight, or whether this will need to be done tomorrow, and if she needs any further workup before surgery. At this time, she is to be kept n.p.o. A preop consent form was filled out and reviewed with the patient by me. She is awaiting the arrival of her daughter to sign it. Preop orders have also been completed. DIAGNOSIS: Left intertrochanteric angulated hip fracture. /[id number]/MODL MTDD
--- NOTE | 2017-10-21 17:51 | PDANEPAE ---
ANE History of Present Illness left hip fx ANE Past Medical History - Cardiovascular History Hx Hypertension: No Hx Arrhythmias: No Hx Chest Pain: No Hx Coronary Artery / Peripheral Vascular Disease: No Hx CHF / Valvular Disease: No Hx Palpitations: No - Pulmonary History Hx COPD: No Hx Asthma/Reactive Airway Disease: Yes Hx Recent Upper Respiratory Infection: No Hx Oxygen in Use at Home: Yes O2 in Use at Home (L/minute): 3 Hx Sleep Apnea: No - Endocrine History Hx Diabetes: No Hypothyroid: No Hyperthyroid: No Obesity: no - Chronic Pain History Chronic Pain: Yes ANE Review of Systems Review of systems is: negative Review of Systems: - Exercise capacity Exercise capacity: <4 METS ANE Patient History - Allergies Allergies/Adverse Reactions: trazodone Allergy (Verified 10/21/17 16:48) BAL and SOB - Home Medications Home medications: home medication list seen and reviewed Home Medications: Aspirin [Aspirin 81mg (*)] 81 mg PO DAILY 01/16/17 [Last Taken 10/21/17] Cholecalciferol Vit D3 [Vitamin D3 (*)] 2,000 units PO DAILY 01/16/17 [Last Taken 10/21/17] Escitalopram Oxalate [Lexapro 10 MG] 10 mg PO DAILY 01/16/17 [Last Taken ] Pregabalin [Lyrica 75mg (*)] 75 mg PO BID 01/16/17 [Last Taken 10/21/17] Sulfamethoxazole/Trimethoprim [Bactrim SS] 1 each PO BID 01/16/17 [Last Taken ] clonazePAM [Clonazepam] 1 mg PO HS 01/16/17 [Last Taken 10/20/17] Mirabegron [Myrbetriq] 50 mg PO DAILY 03/16/17 [Last Taken 10/21/17] Cyanocobalamin [Vitamin B12 1000MCG/ML (*)] 1,000 mcg IM TU 07/16/17 [Last Taken 10/18/17] Levothyroxine [Synthroid 75 mcg (*)] 75 mcg PO DAILY06 07/16/17 [Last Taken ] Propranolol HCl [Inderal 10mg (*)] 10 mg PO DAILY 07/16/17 [Last Taken 10/21/17] Calcium Carbonate [Oyster Shell Calcium 500 mg (*)] 500 mg PO BID 10/21/17 [ Last Taken 10/21/17] Herbals/Supplements -Info Only 1 ea PO DAILY 10/21/17 [Last Taken 10/21/17] Solifenacin Succinate [Vesicare] 10 mg PO DAILY 10/21/17 [Last Taken 10/21/17] Umeclidinium Brm/Vilanterol Tr [Anoro Ellipta 62.5-25 Mcg INH] 1 puffs IH DAILY 10/21/17 [Last Taken 10/21/17] oxyCODONE/APAP 5/325 [Percocet 5/325 (*)] 1 tab PO Q4H PRN 10/21/17 [Last Taken 10/21/17] predniSONE 2.5 mg PO BIDMEAL 10/21/17 [Last Taken 10/21/17] - Anes Hx Anes Hx: no prior problems - Smoking Hx Smoking Status: Current some day smoker ANE Labs/Vital Signs - Labs Result Diagrams: 10/21/17 16:45 10/21/17 16:45 - Vital Signs Blood Pressure: 126/62 Heart Rate: 66 Respiratory Rate: 20 O2 Sat (%): 94 Height: 160.02 cm Weight: 38.555 kg ANE Physical Exam - Airway Neck exam: FROM Mallampati Score: Class 2 Mouth exam: dentures - Pulmonary Pulmonary: no respiratory distress - Cardiovascular Cardiovascular: regular rate and rhythym - ASA Status ASA Status: III ANE Anesthesia Plan Anesthesia Plan: general endotracheal anesthesia
[2017-10-21] MEDS ORDERED: fentaNYL 100 MCG/2 ML INJ ONE (18:13)
[2017-10-21] MEDS ORDERED: LR 1,000 ML IV ONE (18:13)
[2017-10-21] MEDS ORDERED: PROPOFOL 200 MG/20 ML VIAL ONE (18:13)
[2017-10-21] MEDS ORDERED: BUPIVACAINE 0.25% 30 ML SDV ONE (18:15)
[2017-10-21] MEDS ORDERED: BACITRACIN 50,000 UNITS/10 ML SYR IRR ONE (18:16)
[2017-10-21] MEDS ORDERED: ONDANSETRON 4 MG/2 ML VIAL ONE (19:16)
[2017-10-21] MEDS ORDERED: SUGAMMADEX SODIUM 200 MG/2 ML VIAL IVP ONE (19:16)
[2017-10-21] MEDS ORDERED: LIDOCAINE 2% 100 MG/5 ML SYR ONE (19:17)
[2017-10-21] MEDS ORDERED: DEXAMETHASONE 4 MG/ML VIAL ONE (19:17)
[2017-10-21] MEDS ORDERED: fentaNYL 100 MCG/2 ML INJ IVP PRN (19:43)
[2017-10-21] MEDS ORDERED: ACETAMINOPHEN 500 MG TAB PO PRN (19:43)
[2017-10-21] MEDS ORDERED: NALOXONE HCL 0.4 MG/ML INJ IVP PRN ×2 (19:43→20:52)
[2017-10-21] MEDS ORDERED: ALBUTEROL 3 ML DEYVIAL IH PRN (19:43)
[2017-10-21] MEDS ORDERED: LR 500 ML IV PRN (19:43)
[2017-10-21] MEDS ORDERED: OXYCODONE/APAP 5/325 TAB PO PRN (19:43)
[2017-10-21] MEDS ORDERED: PROMETHAZINE HCL 25 MG/ML INJ IVP PRN (19:43)
--- NOTE | 2017-10-21 19:43 | POSTANESTH ---
Post Anesthetic Evaluation Cardiovascular Status: Normal, Stable Respiratory Status: Normal, Stable Level of Consciousness/Mental Status: Mildly Sleepy, Arousable Pain Control: Adequate, Prn Tx Ordered Nausea/Vomiting Control: Adequate, Prn Tx Ordered Complications Possibly Related to Anesthesia: None Noted
--- NOTE | 2017-10-21 20:29 | POSTOPPROG ---
Post Op Note Date of Operation: 10/21/17 Surgeon: Edwin Polanco Process Tank Tender: Allison Hurtado Anesthesia: LMA Pre-op Diagnosis: Intertrochantaric Left Femoral fracture Post-op Diagnosis: Same Procedure: TFN Findings: Synthes TFN Inf/Abcess present in the surg proc area at time of surgery?: No EBL: 50-100 Complications: None
[2017-10-21] MEDS ORDERED: LABETALOL HCL 5 MG/ML 20 ML MDV IVP PRN (20:52)
--- NOTE | 2017-10-21 20:52 | GOP ---
[f rep st] OPERATIVE REPORT DATE OF OPERATION: 10/21/2017 SURGEON: Edwin Polanco MD SUIT MAKER: Allison Adame PA-C. ANESTHESIA: LMA general. PREOPERATIVE DIAGNOSIS: Left intertrochanteric femoral neck plus basicervical femoral neck fracture, left hip. POSTOPERATIVE DIAGNOSIS: Left intertrochanteric femoral neck plus basicervical femoral neck fracture , left hip. PROCEDURE PERFORMED: Intertrochanteric femoral short interlock nail, left hip. FINDINGS: A Synthes trochanteric femoral nail was utilized. This was a short 10 mm nail in the adan pantera intertrochanteric position but locked with a transverse screw in the femoral shaft. DESCRIPTION OF PROCEDURE: After routinely checking the patient's identification and consent, and the successful induction of LMA general anesthetic, the patient was positioned on the fracture table. T he left lower extremity was pulled under traction, which quite satisfactorily reduced the intertrocha nteric fracture. Satisfied with the extent of the reduction in multiple planes, the patient's left h ip was prepped and draped in the usual standard fashion. A surgical time-out was completed. A longitudinal incision approximately 3 fingerbreadths above the greater trochanter was carried sharp ly through the skin and then bluntly through the subcutaneous layer. I dissected through the tensor fascia aria fascia, and then with digital dissection, exposed the tip of the greater trochanter. A p ilot wire was introduced into the femoral canal and checked with 2 planes with fluoroscopy. The 60 m m over reamer was then utilized for the proximal portion of the nail. The short nail was assembled a nd then driven into position. Initially, the trajectory was a little bit too far posterior in the fe moral head. I then retrograde malleted the nail free and then reinserted it in a slightly more poste rior orientation of the insertion point of the neck component. This was satisfactorily positioned, a nd a guidewire was passed up the neck into the head. A 90 mm component was selected and predrilled. The interlocking femoral neck component was then advanced and locked into position proximally and th en slightly unscrewed to place it into a dynamic mode. The shaft was then interlocked using a small cutdown incision with a targeting jig attached to the insertion tool. This interlocking screw was a 32 mm screw. All instruments were removed at this point. The FluoroScan unit was used to visualize this in 2 plan es. Satisfied with the reduction and the hardware component positioning, the wounds were thoroughly irrigated. I closed the fascia over the tensor fascia aria proximally and the gluteus medius muscula ture with 0 Vicryl suture. The subcutaneous layer was closed with 2-0 Vicryl at each of the cutdown incisions. Of note, I did make a single anterior stab incision to push the femoral neck posteriorly during placement of the guidewire up the femoral neck and into the head. This also was irrigated and closed with surgical ewa. The patient was from the fracture table and back to her [facility] bed where she was reversed from her anesthetic and extubated. She was transferred to the [facility], an acute care hospital in excellent condition. She tolerated the procedure well. There were no complications. INDICATIONS FOR SURGERY: The patient is a 72-year-old woman who fell earlier today. The circumstanc es of her fall are not completely clear to the patient. Regardless, she was brought by ambulance to the emergency department where her hip fracture was identified. Due to the complex nature of her hip fracture, she was brought to the operating room for definitive surgical management. /[id number]/MODL
--- NOTE | 2017-10-21 21:05 | PDGENHP ---
History and Physical - Chief Complaint s/p fall - History of Present Illness This is a 72 yo female who suffered a left hip fracture following a mechanical fall today. She was walking into her garage and she missed a step and fell. There was no syncope, no LOC. Imaging was consistent with Left hip fracture and she was taken to the OR for surgical repair. She is seen post operatively and is not able to provide a ROS or answer questions. History is obtained from the medical record. She was not on AC therapy. She did hit her left temporal region and head CT was unremarkable. 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, chronic pain syndrome, Hypothyroidism, SPCMN, chronic daily prednisone SOCIAL HISTORY: daily tobacco, no ETOH, no illicits Fmhx: NE History Information - Allergies/Home Medication List Allergies/Adverse Reactions: trazodone Allergy (Verified 10/21/17 16:48) BAL and SOB Home Medications: Aspirin [Aspirin 81mg (*)] 81 mg PO DAILY 01/16/17 [Last Taken 10/21/17] Cholecalciferol Vit D3 [Vitamin D3 (*)] 2,000 units PO DAILY 01/16/17 [Last Taken 10/21/17] Escitalopram Oxalate [Lexapro 10 MG] 10 mg PO DAILY 01/16/17 [Last Taken ] Pregabalin [Lyrica 75mg (*)] 75 mg PO BID 01/16/17 [Last Taken 10/21/17] Sulfamethoxazole/Trimethoprim [Bactrim SS] 1 each PO BID 01/16/17 [Last Taken ] clonazePAM [Clonazepam] 1 mg PO HS 01/16/17 [Last Taken 10/20/17] Mirabegron [Myrbetriq] 50 mg PO DAILY 03/16/17 [Last Taken 10/21/17] Cyanocobalamin [Vitamin B12 1000MCG/ML (*)] 1,000 mcg IM TU 07/16/17 [Last Taken 10/18/17] Levothyroxine [Synthroid 75 mcg (*)] 75 mcg PO DAILY06 07/16/17 [Last Taken ] Propranolol HCl [Inderal 10mg (*)] 10 mg PO DAILY 07/16/17 [Last Taken 10/21/17] Calcium Carbonate [Oyster Shell Calcium 500 mg (*)] 500 mg PO BID 10/21/17 [ Last Taken 10/21/17] Herbals/Supplements -Info Only 1 ea PO DAILY 10/21/17 [Last Taken 10/21/17] Solifenacin Succinate [Vesicare] 10 mg PO DAILY 10/21/17 [Last Taken 10/21/17] Umeclidinium Brm/Vilanterol Tr [Anoro Ellipta 62.5-25 Mcg INH] 1 puffs IH DAILY 10/21/17 [Last Taken 10/21/17] oxyCODONE/APAP 5/325 [Percocet 5/325 (*)] 1 tab PO Q4H PRN 10/21/17 [Last Taken 10/21/17] predniSONE 2.5 mg PO BIDMEAL 10/21/17 [Last Taken 10/21/17] I have personally reviewed and updated: medical history, social history - Past Medical History COPD ( Chronically steroid dependent, chronic immune-suppressed.) Additional medical history: Hypothyroidism. Depression. Chronic pain with continuous opiate dependency - Surgical History Additional surgical history: scoliosis with complete spine hardware, performed in [facility] - Family History Additional family history: she denies any recent sick family contacts - Social History Smoking Status: Current some day smoker Additional social history: normally independent in her ADLs, lives alone, utilizes a rolling walker, has some private duty assistance with outpatient appointments, family lives locally, has been [place] for the last year Review of Systems Review of Systems: ROS: 10pt was reviewed & negative except for what was stated in HPI & below Physical Exam Physical Exam: Temp Pulse Resp BP Pulse Ox 36.2 C 66 13 153/70 H 99 10/21/17 20:51 10/21/17 18:18 10/21/17 20:55 10/21/17 20:55 10/21/17 20:55 O2 (L/minute) 2 Constitutional: no apparent distress Eyes: PERRL, EOMI Ears, Nose, Mouth, Throat: moist mucous membranes Cardiovascular: regular rate and rhythym, No JVD, No edema Respiratory: no respiratory distress, reduced air movement Gastrointestinal: normoactive bowel sounds, soft, non-tender abdomen Skin: warm Neurologic: No AAOx3 Lymph, Heme, Immunologic: No petechiae Lab Data & Imaging Review 10/21/17 16:45 10/21/17 16:45 WBC 7.19 10^3/uL (3.80-9.50) 10/21/17 16:45 RBC 3.37 10^6/uL (4.18-5.33) L 10/21/17 16:45 Hgb 11.2 g/dL (12.6-16.3) L 10/21/17 16:45 Hct 34.0 % (38.0-47.0) L 10/21/17 16:45 MCV 100.9 fL (81.5-99.8) H 10/21/17 16:45 MCH 33.2 pg (27.9-34.1) 10/21/17 16:45 MCHC 32.9 g/dL (32.4-36.7) 10/21/17 16:45 RDW 13.2 % (11.5-15.2) 10/21/17 16:45 Plt Count 104 10^3/uL (150-400) L 10/21/17 16:45 MPV 11.2 fL (8.7-11.7) 10/21/17 16:45 Neut % (Auto) 66.8 % (39.3-74.2) 10/21/17 16:45 Lymph % (Auto) 12.1 % (15.0-45.0) L 10/21/17 16:45 Riley % (Auto) 18.8 % (4.5-13.0) H 10/21/17 16:45 Eos % (Auto) 0.3 % (0.6-7.6) L 10/21/17 16:45 Baso % (Auto) 0.3 % (0.3-1.7) 10/21/17 16:45 Nucleat RBC Rel Count 0.0 % (0.0-0.2) 10/21/17 16:45 Absolute Neuts (auto) 4.81 10^3/uL (1.70-6.50) 10/21/17 16:45 Absolute Lymphs (auto) 0.87 10^3/uL (1.00-3.00) L 10/21/17 16:45 Absolute Monos (auto) 1.35 10^3/uL (0.30-0.80) H 10/21/17 16:45 Absolute Eos (auto) 0.02 10^3/uL (0.03-0.40) L 10/21/17 16:45 Absolute Basos (auto) 0.02 10^3/uL (0.02-0.10) 10/21/17 16:45 Absolute Nucleated RBC 0.00 10^3/uL (0-0.01) 10/21/17 16:45 Immature Gran % 1.7 % (0.0-1.1) H 10/21/17 16:45 Immature Gran # 0.12 10^3/uL (0.00-0.10) H 10/21/17 16:45 PT 13.1 SEC (12.0-15.0) 10/21/17 16:45 INR 0.97 (0.83-1.16) 10/21/17 16:45 APTT 30.7 SEC (23.0-38.0) 10/21/17 16:45 Sodium 140 mEq/L (135-145) 10/21/17 16:45 Potassium 4.7 mEq/L (3.5-5.2) 10/21/17 16:45 Chloride 100 mEq/L (97-110) 10/21/17 16:45 Carbon Dioxide 35 mEq/l (22-31) H 10/21/17 16:45 Anion Gap 5 mEq/L (8-16) L 10/21/17 16:45 BUN 12 mg/dL (7-23) 10/21/17 16:45 Creatinine 1.0 mg/dL (0.6-1.0) 10/21/17 16:45 Estimated GFR 54 10/21/17 16:45 Glucose 100 mg/dL (70-100) 10/21/17 16:45 Calcium 9.7 mg/dL (8.5-10.4) 10/21/17 16:45 Assessment & Plan Assessment: #Closed left subtrochanteric femur fracture, s/p surgical repair #s/p Mechanical Fall #Chronic respiratory failure at baseline #COPD, not in exacerbation #Tobacco abuse disorder #Chronic pain syndrome and narcotic dependance #SPCMN #chronic daily steroid #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 As this is a low dose, I have not started stress steroid dosing. Low threshold to increase appropriate home meds clarify code status
[2017-10-21] MEDS: CEPHALEXIN 500 MG CAP PO SCH (22:12)
[2017-10-22 05:27] LABS: PLATELET COUNT 83 10^3/uL (150-400)
[2017-10-22] MEDS ORDERED: LR 1,000 ML IV SCH (06:00)
[2017-10-22] MEDS: CEPHALEXIN 500 MG CAP PO SCH ×2 (06:02→13:59)
[2017-10-22] MEDS: LEVOTHYROXINE 75 MCG TAB PO SCH (06:03)
[2017-10-22] MEDS ORDERED: NON-FORMULARY NEW DRUG (Prednisone [Prednisone] 2.5 MG) PO SCH (08:00)
[2017-10-22] MEDS ORDERED: Herbals/Supplements -Info Only PO SCH (09:00)
[2017-10-22] MEDS ORDERED: NON-FORMULARY NEW DRUG (Solifenacin Succinate [Vesicare] 10 MG) PO SCH (09:00)
[2017-10-22] MEDS: ESCITALOPRAM OXALATE 10 MG TAB PO SCH (09:02)
[2017-10-22] MEDS: CHOLECALCIFEROL VIT D3 1,000 UNITS TAB PO SCH (09:02)
[2017-10-22] MEDS: CALCIUM CARBONATE 500 MG TAB PO SCH ×2 (09:03→20:24)
[2017-10-22] MEDS: SOLIFENACIN SUCCINATE 5 MG TAB PO SCH ×2 (09:03→09:05)
[2017-10-22] MEDS: predniSONE 5 MG TAB PO SCH ×2 (09:03→19:41)
[2017-10-22] MEDS: SULFAMETHOX/TMP 400/80 MG 1 TAB PO SCH ×2 (09:03→20:23)
[2017-10-22] MEDS: PREGABALIN 75 MG CAP PO SCH ×2 (09:04→20:24)
[2017-10-22] MEDS: UMECLIDINIUM BRM IH SCH ×2 (09:47→09:50)
[2017-10-22] MEDS: VILANTEROL TR IH SCH ×2 (09:47→09:50)
[2017-10-22] MEDS: OXYCODONE/APAP 5/325 TAB PO PRN ×4 (09:56→19:42)
[2017-10-22] MEDS: ENOXAPARIN 40 MG/0.4 ML SYR SC SCH (09:56)
[2017-10-22] MEDS: Mirabegron [Myrbetriq] 50 MG PO SCH (09:57)
[2017-10-22] MEDS: PROPRANOLOL HCL 10 MG TAB PO SCH (10:12)
--- NOTE | 2017-10-22 10:21 | SOAPPROG ---
SOAP Progress Note Assessment/Plan: Assessment:Doing OK POD # 1 Plan: Pain control DVT prophylaxis PT (WBAT) D/C planning 10/22/17 10:20 Subjective: They wont give me my pain pills Objective: Vital Signs Temp Pulse Resp BP Pulse Ox 37.4 C 93 18 84/50 L 94 10/22/17 08:22 10/22/17 10:12 10/22/17 09:48 10/22/17 10:12 10/22/17 09:48 Laboratory Results 10/22/17 04:25 10/22/17 04:25 10/21/17 10/22/17 10/23/17 05:59 05:59 05:59 Intake Total 1150 Output Total 280 400 Balance 870 -400 PT 13.1 SEC (12.0-15.0) 10/21/17 16:45 INR 0.97 (0.83-1.16) 10/21/17 16:45 AF Wound with mild heme stains from Middle wound, prox and distal wounds CDI. Normal strength in legs from knee to toes Sensation intact B LE Calves NT ICD10 Worksheet Patient Problems: Problems Problem Status Onset Abrasion of left elbow, initial encounter Acute Closed left subtrochanteric femur fracture Acute Head injury due to trauma Acute COPD exacerbation Acute COPD with exacerbation Acute Chronic Disease Mgmt/Transitional Care Acute Chronic obstructive pulmonary disease with acute exacerbation Acute Dehydration Acute Dyspnea Acute Weakness Acute Weakness Acute
--- NOTE | 2017-10-22 12:11 | HOSPPROG ---
Hospitalist Progress Note Assessment/Plan: This is a 72 yo female who suffered a left hip fracture following a mechanical fall today. She was walking into her garage and she missed a step and fell. There was no syncope, no LOC. Imaging was consistent with Left hip fracture and she was taken to the OR for surgical repair. Today is my first encounter with the patient, chart reviewed. #Closed left subtrochanteric femur fracture, s/p surgical repair #s/p Mechanical Fall -due to gait instability #hypotension -resolved, will dc iv fluids but may need a bolus if bp drops #anemia -blood loss -will recheck in a.m. 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 Subjective: Micheal has no complaints/ feeling tired. Objective: Vital Signs Temp Pulse Resp BP Pulse Ox 36.6 C 103 H 16 101/45 L 2 L 10/22/17 11:35 10/22/17 11:35 10/22/17 11:35 10/22/17 11:35 10/22/17 11:35 Laboratory Results 10/22/17 04:25 10/22/17 04:25 10/21/17 10/22/17 10/23/17 05:59 05:59 05:59 Intake Total 1150 Output Total 280 400 Balance 870 -400 PT 13.1 SEC (12.0-15.0) 10/21/17 16:45 INR 0.97 (0.83-1.16) 10/21/17 16:45 - Physical Exam Constitutional: chronically ill appearing, No not in pain (uncomfortable) Eyes: PERRL Ears, Nose, Mouth, Throat: hearing normal Respiratory: no respiratory distress Gastrointestinal: normoactive bowel sounds Skin: warm, No normal color (pale) Musculoskeletal: generalized weakness Neurologic: AAOx3 Psychiatric: interacting appropriately ICD10 Worksheet Patient Problems: Problems Problem Status Onset Abrasion of left elbow, initial encounter Acute Closed left subtrochanteric femur fracture Acute Head injury due to trauma Acute COPD exacerbation Acute COPD with exacerbation Acute Chronic Disease [facility]/Transitional Care Acute Chronic obstructive pulmonary disease with acute exacerbation Acute Dehydration Acute Dyspnea Acute Weakness Acute Weakness Acute
--- NOTE | 2017-10-22 15:31 | ASMTCMCOM ---
CM Note CM Note Notes: Pt s/p surgery for hip fx, lives alone and has a dghtr local. OT rec inpat rehab, PT rec SNF. Provided pt SNF choice list, she will discuss w friends/family. This initial conversation pt indicates some reluctance to SNF, CM to re-visit d/c planning w pt and follow progress. Date Signed: 10/22/2017 03:30 PM Electronically Signed By:YANCY Cardona
[2017-10-23] MEDS: OXYCODONE/APAP 5/325 TAB PO PRN ×4 (01:24→18:36)
[2017-10-23 04:57] LABS: PLATELET COUNT 72 10^3/uL (150-400)
[2017-10-23] MEDS: LEVOTHYROXINE 75 MCG TAB PO SCH (06:24)
[2017-10-23] MEDS: UMECLIDINIUM BRM IH SCH (08:41)
[2017-10-23] MEDS: VILANTEROL TR IH SCH (08:41)
[2017-10-23] MEDS: SULFAMETHOX/TMP 400/80 MG 1 TAB PO SCH ×2 (08:57→21:07)
[2017-10-23] MEDS: ENOXAPARIN 40 MG/0.4 ML SYR SC SCH (08:57)
[2017-10-23] MEDS: PROPRANOLOL HCL 10 MG TAB PO SCH ×2 (08:58→12:55)
[2017-10-23] MEDS: SOLIFENACIN SUCCINATE 5 MG TAB PO SCH (08:59)
[2017-10-23] MEDS: PREGABALIN 75 MG CAP PO SCH ×2 (09:00→21:06)
[2017-10-23] MEDS: CALCIUM CARBONATE 500 MG TAB PO SCH ×2 (09:00→21:07)
[2017-10-23] MEDS: CHOLECALCIFEROL VIT D3 1,000 UNITS TAB PO SCH (09:01)
[2017-10-23] MEDS: predniSONE 5 MG TAB PO SCH ×2 (09:01→18:36)
[2017-10-23] MEDS: ESCITALOPRAM OXALATE 10 MG TAB PO SCH (09:01)
[2017-10-23] MEDS: Mirabegron [Myrbetriq] 50 MG PO SCH (09:09)
--- NOTE | 2017-10-23 09:52 | SOAPPROG ---
SOAP Progress Note Assessment/Plan: Assessment:Doing OK POD # 2 HCT lower. Plan: If symptomatic anemia, consider transfusion. Change dressing D/C vance Pain control DVT prophylaxis PT (WBAT) D/C planning 10/22/17 10:20 10/23/17 09:50 Subjective: Slept OK, Pain controlled better today. Objective: Vital Signs Temp Pulse Resp BP Pulse Ox 37.1 C 82 18 108/51 L 95 10/23/17 07:41 10/23/17 08:58 10/23/17 08:42 10/23/17 08:58 10/23/17 08:42 Laboratory Results 10/23/17 04:15 10/23/17 04:15 10/22/17 10/23/17 10/24/17 05:59 05:59 05:59 Intake Total 1150 400 Output Total 280 750 Balance 870 -350 PT 13.1 SEC (12.0-15.0) 10/21/17 16:45 INR 0.97 (0.83-1.16) 10/21/17 16:45 AF VSS Hct down to 20 today. CSM I B LE Calves NT Wounds unchanged from yesterday. ICD10 Worksheet Patient Problems: Problems Problem Status Onset Abrasion of left elbow, initial encounter Acute Closed left subtrochanteric femur fracture Acute Head injury due to trauma Acute COPD exacerbation Acute COPD with exacerbation Acute Chronic Disease Mgmt/Transitional Care Acute Chronic obstructive pulmonary disease with acute exacerbation Acute Dehydration Acute Dyspnea Acute Weakness Acute Weakness Acute
[2017-10-23] MEDS: ALBUTEROL 3 ML DEYVIAL IH PRN (16:31)
--- NOTE | 2017-10-23 19:52 | HOSPPROG ---
Hospitalist Progress Note Assessment/Plan: The patient is a 72-year-old female with PMH COPD, chronic pain, anemia, tobacco dependence who was admitted for left subtrochanteric femur fracture and underwent surgical repair. ASSESSMENT/PLAN: Closed left subtrochanteric femur fracture, s/p mech fall, s/p surgical repair, POD #2 Postop pain, L hip Gait instability Chronic pain with narcotic dependence -PT/OT WBAT -p.r.n. analgesics ABL anemia Thrombocytopenia Macrocytosis, chronic -stat Hgb recheck today <7, transfused 1uPRBC -If Hgb still low in AM, investivate for ongoing blood loss. -Held Lovenox today COPD Tobacco dependence -continue prednisone, chronic home med -continue oxygen which patient uses at home. -continue inhalers/SVNs -nicotine patch as needed Chronic MRSA back infection -continue suppressive therapy with Bactrim VTE prophylaxis: Lovenox on hold today. SCD. Code Status: Full code. Status: Inpatient for greater than 2 midnight stay. Disposition: Med surg with discharge anticipated in the next couple days. This patient is new to me. Reviewed patient's chart/records for this visit. ____ SUBJECTIVE: Today the patient feels very tired. She complains of pain in her left hip. It is very painful to bear weight on it. OBJECTIVE: Physical Exam: General: The patient is an elderly female who is alert and in no acute distress. HEENT: normocephalic, extraocular movements intact, conjunctivae clear. Mucous membranes moist. Neck: trachea midline, no visible masses. CV: +S1/S2, RRR, no MRG. Resp: unlabored, CTAB no RRW. Abd: soft and nondistended. Musculoskeletal: Normal muscle tone/bulk. + dressing on left hip noted-stained with blood. Neuro: cranial nerves II XII grossly intact. Intact gross motor and sensory function. Psych: Appropriate mood and appropriate affect. Skin: +mild pallor. No petechiae. Heme/lymph: No pitting peripheral edema at bilateral lower extremities. Labs/Imaging/Other Tests: Personally reviewed/interpreted. Objective: Vital Signs Temp Pulse Resp BP Pulse Ox 36.8 C 93 16 111/72 97 10/23/17 15:33 10/23/17 15:33 10/23/17 15:33 10/23/17 15:33 10/23/17 15:33 Laboratory Results 10/23/17 09:55 10/23/17 04:15 10/22/17 10/23/17 10/24/17 05:59 05:59 05:59 Intake Total 1150 400 Output Total 280 750 Balance 870 -350 PT 13.1 SEC (12.0-15.0) 10/21/17 16:45 INR 0.97 (0.83-1.16) 10/21/17 16:45 ICD10 Worksheet Patient Problems: Problems Problem Status Onset Abrasion of left elbow, initial encounter Acute Closed left subtrochanteric femur fracture Acute Head injury due to trauma Acute COPD exacerbation Acute COPD with exacerbation Acute Chronic Disease Mgmt/Transitional Care Acute Chronic obstructive pulmonary disease with acute exacerbation Acute Dehydration Acute Dyspnea Acute Weakness Acute Weakness Acute
[2017-10-24] MEDS ORDERED: NS 500 ML IV ONE ×2 (02:59→10:21)
[2017-10-24] MEDS: UMECLIDINIUM BRM IH SCH ×2 (03:25→08:51)
[2017-10-24] MEDS: VILANTEROL TR IH SCH ×2 (03:25→08:51)
[2017-10-24] MEDS: OXYCODONE/APAP 5/325 TAB PO PRN ×5 (03:27→21:26)
[2017-10-24 04:08] LABS: PLATELET COUNT 81 10^3/uL (150-400)
[2017-10-24] MEDS: LEVOTHYROXINE 75 MCG TAB PO SCH (05:57)
[2017-10-24] MEDS: CHOLECALCIFEROL VIT D3 1,000 UNITS TAB PO SCH (08:38)
[2017-10-24] MEDS: PREGABALIN 75 MG CAP PO SCH ×2 (08:38→21:21)
[2017-10-24] MEDS: CALCIUM CARBONATE 500 MG TAB PO SCH ×2 (08:38→21:20)
[2017-10-24] MEDS: ESCITALOPRAM OXALATE 10 MG TAB PO SCH (08:39)
[2017-10-24] MEDS: predniSONE 5 MG TAB PO SCH ×2 (08:39→18:03)
--- NOTE | 2017-10-24 08:47 | SOAPPROG ---
SOAP Progress Note Assessment/Plan: Assessment: POD#3 left hip fracture s/p TFN Plan: If symptomatic anemia, consider transfusion. Daily dry dressing Pain medicine as needed DVT prophylaxis PT: weight bearing as tolerated D/C planning Subjective: Patient is 3 days status post left hip fracture fixed via TFN. Pt states her pain is controlled with medicine. Objective: Vital Signs Temp Pulse Resp BP Pulse Ox 36.9 C 91 15 84/38 L 95 10/24/17 08:00 10/24/17 08:00 10/24/17 08:00 10/24/17 08:00 10/24/17 08:00 Laboratory Results 10/24/17 04:00 10/24/17 04:00 10/23/17 10/24/17 10/25/17 05:59 05:59 05:59 Intake Total 400 500 Output Total 750 250 Balance -350 250 PT 13.1 SEC (12.0-15.0) 10/21/17 16:45 INR 0.97 (0.83-1.16) 10/21/17 16:45 Physical exam of the left hip: incision is healing well, no erythema, no active drainage. Normal sensation to light touch in the LLE. Distal pulse present in the LLE. ICD10 Worksheet Patient Problems: Problems Problem Status Onset Abrasion of left elbow, initial encounter Acute Closed left subtrochanteric femur fracture Acute Head injury due to trauma Acute COPD exacerbation Acute COPD with exacerbation Acute Chronic Disease Mgmt/Transitional Care Acute Chronic obstructive pulmonary disease with acute exacerbation Acute Dehydration Acute Dyspnea Acute Weakness Acute Weakness Acute
--- NOTE | 2017-10-24 08:51 | SOAPPROG ---
SOAP Progress Note Assessment/Plan: Assessment:Doing OK POD # 3 HCT up slightly. Plan: Change dressing PRN Pain control DVT prophylaxis PT (WBAT) D/C planning 10/22/17 10:20 10/23/17 09:50 10/24/17 08:48 Objective: Vital Signs Temp Pulse Resp BP Pulse Ox 36.9 C 91 15 84/38 L 95 10/24/17 08:00 10/24/17 08:00 10/24/17 08:00 10/24/17 08:00 10/24/17 08:00 Laboratory Results 10/24/17 04:00 10/24/17 04:00 10/23/17 10/24/17 10/25/17 05:59 05:59 05:59 Intake Total 400 500 Output Total 750 250 Balance -350 250 PT 13.1 SEC (12.0-15.0) 10/21/17 16:45 INR 0.97 (0.83-1.16) 10/21/17 16:45 Minimal Tenderness on Left Calf proximally. No swelling and No Holmens. Wound has mild heme soilage from superior wound only CSM I B LE Voiding fine PO diet fine ICD10 Worksheet Patient Problems: Problems Problem Status Onset Abrasion of left elbow, initial encounter Acute Closed left subtrochanteric femur fracture Acute Head injury due to trauma Acute COPD exacerbation Acute COPD with exacerbation Acute Chronic Disease Mgmt/Transitional Care Acute Chronic obstructive pulmonary disease with acute exacerbation Acute Dehydration Acute Dyspnea Acute Weakness Acute Weakness Acute
[2017-10-24] MEDS: PROPRANOLOL HCL 10 MG TAB PO SCH (09:20)
[2017-10-24] MEDS: Mirabegron [Myrbetriq] 50 MG PO SCH (09:23)
[2017-10-24] MEDS: SULFAMETHOX/TMP 400/80 MG 1 TAB PO SCH ×2 (09:31→21:21)
--- NOTE | 2017-10-24 10:24 | HOSPPROG ---
Hospitalist Progress Note Assessment/Plan: This is a 72 yo female who suffered a left hip fracture following a mechanical fall today. She was walking into her garage and she missed a step and fell. There was no syncope, no LOC. Imaging was consistent with Left hip fracture and she was taken to the OR for surgical repair. 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 Thinks when she fell , she hit her right arm. Objective: Vital Signs Temp Pulse Resp BP Pulse Ox 36.9 C 89 16 84/38 L 96 10/24/17 08:00 10/24/17 09:20 10/24/17 08:52 10/24/17 09:20 10/24/17 08:52 Laboratory Results 10/24/17 04:00 10/24/17 04:00 10/23/17 10/24/17 10/25/17 05:59 05:59 05:59 Intake Total 400 500 Output Total 750 250 Balance -350 250 PT 13.1 SEC (12.0-15.0) 10/21/17 16:45 INR 0.97 (0.83-1.16) 10/21/17 16:45 - Physical Exam Constitutional: chronically ill appearing, cachectic Eyes: PERRL Ears, Nose, Mouth, Throat: hearing normal Cardiovascular: regular rate and rhythym Respiratory: no respiratory distress, reduced air movement Gastrointestinal: normoactive bowel sounds Skin: other (left hip and upper thigh area with swelling) Musculoskeletal: generalized weakness Neurologic: AAOx3 Psychiatric: interacting appropriately, not anxious ICD10 Worksheet Patient Problems: Problems Problem Status Onset Abrasion of left elbow, initial encounter Acute Closed left subtrochanteric femur fracture Acute Head injury due to trauma Acute COPD exacerbation Acute COPD with exacerbation Acute Chronic Disease Mgmt/Transitional Care Acute Chronic obstructive pulmonary disease with acute exacerbation Acute Dehydration Acute Dyspnea Acute Weakness Acute Weakness Acute
--- NOTE | 2017-10-24 12:53 | ASMTCMCOM ---
CM Note CM Note Notes: Spoke with pt; received permission to speak with her daughter Miriam ([phone]) regarding dc poc. Spoke with Miriam; Miriam agreeable to pt discharging to SNF; [facility] chosen; referrals faxed; confirmed received. Awaiting callback. CM will continue to follow. Date Signed: 10/24/2017 12:53 PM Electronically Signed By:Radha Lamar RN
[2017-10-25] MEDS: OXYCODONE/APAP 5/325 TAB PO PRN ×5 (01:21→22:40)
[2017-10-25 04:59] LABS: PLATELET COUNT 79 10^3/uL (150-400)
[2017-10-25] MEDS: LEVOTHYROXINE 75 MCG TAB PO SCH (05:25)
[2017-10-25] MEDS: UMECLIDINIUM BRM IH SCH (08:17)
[2017-10-25] MEDS: VILANTEROL TR IH SCH (08:17)
--- NOTE | 2017-10-25 09:10 | HOSPPROG ---
Hospitalist Progress Note Assessment/Plan: This is a 72 yo female who suffered a left hip fracture following a mechanical fall today. She was walking into her garage and she missed a step and fell. There was no syncope, no LOC. Imaging was consistent with Left hip fracture and she was taken to the OR for surgical repair. 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 Subjective: Micheal is feeling much better today and is in good spirits. Objective: Vital Signs Temp Pulse Resp BP Pulse Ox 37.2 C 88 18 137/70 H 94 10/25/17 07:34 10/25/17 08:20 10/25/17 08:20 10/25/17 07:34 10/25/17 08:20 Laboratory Results 10/25/17 04:13 10/25/17 04:13 10/24/17 10/25/17 10/26/17 05:59 05:59 05:59 Intake Total 500 1200 Output Total 250 200 Balance 250 1000 PT 13.1 SEC (12.0-15.0) 10/21/17 16:45 INR 0.97 (0.83-1.16) 10/21/17 16:45 - Physical Exam Constitutional: chronically ill appearing, cachectic Eyes: PERRL Ears, Nose, Mouth, Throat: hearing normal Cardiovascular: regular rate and rhythym Respiratory: no respiratory distress, reduced air movement Gastrointestinal: normoactive bowel sounds Skin: warm, other (swelling in left hip that extends into upper left thigh area) , No normal color Musculoskeletal: generalized weakness Neurologic: AAOx3 Psychiatric: interacting appropriately ICD10 Worksheet Patient Problems: Problems Problem Status Onset Abrasion of left elbow, initial encounter Acute Closed left subtrochanteric femur fracture Acute Head injury due to trauma Acute COPD exacerbation Acute COPD with exacerbation Acute Chronic Disease Mgmt/Transitional Care Acute Chronic obstructive pulmonary disease with acute exacerbation Acute Dehydration Acute Dyspnea Acute Weakness Acute Weakness Acute
[2017-10-25] MEDS: PREGABALIN 75 MG CAP PO SCH ×2 (09:45→21:45)
[2017-10-25] MEDS: PROPRANOLOL HCL 10 MG TAB PO SCH (09:46)
[2017-10-25] MEDS: SULFAMETHOX/TMP 400/80 MG 1 TAB PO SCH ×2 (09:46→21:45)
[2017-10-25] MEDS: SOLIFENACIN SUCCINATE 5 MG TAB PO SCH (09:47)
[2017-10-25] MEDS: ESCITALOPRAM OXALATE 10 MG TAB PO SCH (09:48)
[2017-10-25] MEDS: CALCIUM CARBONATE 500 MG TAB PO SCH ×2 (09:48→21:46)
[2017-10-25] MEDS: predniSONE 5 MG TAB PO SCH ×2 (09:49→17:53)
[2017-10-25] MEDS: CHOLECALCIFEROL VIT D3 1,000 UNITS TAB PO SCH (13:57)
[2017-10-25] MEDS: Mirabegron [Myrbetriq] 50 MG PO SCH (13:58)
--- NOTE | 2017-10-25 15:44 | ASMTCMCOM ---
CM Note CM Note Notes: Pt accepted at [facility], both will have bed tomorrow which is likely d/c. Pt/dghtr chose [facility]. Date Signed: 10/25/2017 03:43 PM Electronically Signed By:YANCY Cardona
--- NOTE | 2017-10-25 19:00 | SOAPPROG ---
SOAP Progress Note Assessment/Plan: Assessment:Doing Fine POD # 4 . Plan: Change dressing PRN Pain control DVT prophylaxis PT (WBAT) D/C planning 10/22/17 10:20 10/23/17 09:50 10/24/17 08:48 10/25/17 18:59 Subjective: Doing OK, Slept pretty good. Objective: Vital Signs Temp Pulse Resp BP Pulse Ox 37.2 C 77 18 117/59 L 91 L 10/25/17 07:34 10/25/17 15:38 10/25/17 15:38 10/25/17 15:38 10/25/17 15:38 Laboratory Results 10/25/17 04:13 10/25/17 04:13 10/24/17 10/25/17 10/26/17 05:59 05:59 05:59 Intake Total 500 1200 Output Total 250 200 700 Balance 250 1000 -700 PT 13.1 SEC (12.0-15.0) 10/21/17 16:45 INR 0.97 (0.83-1.16) 10/21/17 16:45 Wounds stabilized and dressing dry this am. Still c/o pain in L hip area but calves NT today Bilaterally. CSM I B LE. HCT stabilized. ICD10 Worksheet Patient Problems: Problems Problem Status Onset Abrasion of left elbow, initial encounter Acute Closed left subtrochanteric femur fracture Acute Head injury due to trauma Acute COPD exacerbation Acute COPD with exacerbation Acute Chronic Disease Mgmt/Transitional Care Acute Chronic obstructive pulmonary disease with acute exacerbation Acute Dehydration Acute Dyspnea Acute Weakness Acute Weakness Acute
[2017-10-25] MEDS ORDERED: BISACODYL 10 MG SUPP PR PRN (20:38)
[2017-10-25] MEDS ORDERED: LACTULOSE 20 GM/30 ML UDCUP PO PRN (20:38)
[2017-10-25] MEDS ORDERED: POLYETHYLENE GLYCOL 3350 17 GM PKT PO PRN (20:38)
[2017-10-25] MEDS ORDERED: MAGNESIUM HYDROXIDE 30 ML UDCUP PO PRN (20:38)
[2017-10-25] MEDS ORDERED: CYANO/VITAMIN B12 1000 MCG/ML VIAL IM SCH (21:09)
[2017-10-25] MEDS: ALBUTEROL 3 ML DEYVIAL IH PRN (21:17)
[2017-10-25] MEDS: SENNOSIDES/DOCUSATE SODIUM TAB PO SCH (22:40)
[2017-10-26 01:03] VITALS: TEMP 98.4
[2017-10-26 05:01] LABS: PLATELET COUNT 121 10^3/uL (150-400)
[2017-10-26] MEDS: LEVOTHYROXINE 75 MCG TAB PO SCH (05:31)
[2017-10-26 08:13] VITALS: BP 133/71
--- NOTE | 2017-10-26 08:22 | SOAPPROG ---
SOAP Progress Note Assessment/Plan: Assessment:Doing Fine POD # 5 left hip intertrochanteric and basilar cervical femoral neck fracture fixed via TFN Plan: Change dressing PRN Weight bearing as tolerated LLE Pain control DVT prophylaxis PT D/C planning Subjective: Patient states she did get up and walk yesterday. She does have pain in her left hip but it is being controlled with medicine. Objective: Vital Signs Temp Pulse Resp BP Pulse Ox 36.9 C 90 16 133/71 H 99 10/26/17 08:00 10/26/17 08:00 10/26/17 08:00 10/26/17 08:00 10/26/17 08:00 Laboratory Results 10/26/17 04:29 10/26/17 04:29 10/25/17 10/26/17 10/27/17 05:59 05:59 05:59 Intake Total 1200 300 Output Total 200 700 Balance 1000 -400 PT 13.1 SEC (12.0-15.0) 10/21/17 16:45 INR 0.97 (0.83-1.16) 10/21/17 16:45 Physical exam of the left hip: dressings clean, dry and intact. Incisions healing well, no erythema, no active drainage. Normals sensation to light touch in the LLE. Distal pulse present in the LLE> ICD10 Worksheet Patient Problems: Problems Problem Status Onset Abrasion of left elbow, initial encounter Acute Closed left subtrochanteric femur fracture Acute Head injury due to trauma Acute COPD exacerbation Acute COPD with exacerbation Acute Chronic Disease Mgmt/Transitional Care Acute Chronic obstructive pulmonary disease with acute exacerbation Acute Dehydration Acute Dyspnea Acute Weakness Acute Weakness Acute
[2017-10-26] MEDS: ALBUTEROL 3 ML DEYVIAL IH PRN (09:10)
[2017-10-26 09:26] VITALS: RESP 14; O2SAT 96
[2017-10-26] MEDS: PREGABALIN 75 MG CAP PO SCH (09:32)
[2017-10-26] MEDS: OXYCODONE/APAP 5/325 TAB PO PRN (09:33)
[2017-10-26] MEDS: CALCIUM CARBONATE 500 MG TAB PO SCH (09:34)
[2017-10-26] MEDS: SOLIFENACIN SUCCINATE 5 MG TAB PO SCH (09:34)
[2017-10-26] MEDS: SULFAMETHOX/TMP 400/80 MG 1 TAB PO SCH (09:35)
[2017-10-26] MEDS: PROPRANOLOL HCL 10 MG TAB PO SCH (09:35)
[2017-10-26] MEDS: ESCITALOPRAM OXALATE 10 MG TAB PO SCH (09:36)
[2017-10-26] MEDS: SENNOSIDES/DOCUSATE SODIUM TAB PO SCH (09:36)
[2017-10-26] MEDS: CHOLECALCIFEROL VIT D3 1,000 UNITS TAB PO SCH (09:36)
[2017-10-26] MEDS: predniSONE 5 MG TAB PO SCH (09:36)
[2017-10-26 09:37] VITALS: PULSE 90
[2017-10-26] MEDS: Mirabegron [Myrbetriq] 50 MG PO SCH (10:06)
--- NOTE | 2017-10-26 10:24 | PDIAF ---
- Diagnosis Diagnosis: hip fracture, gait instability Code Status: Full Code - Medication Management Discharge Medications: Medications to Continue on Transfer Aspirin [Aspirin 81mg (*)] 81 mg PO DAILY 01/16/17 [Last Taken 10/21/17] Cholecalciferol Vit D3 [Vitamin D3 (*)] 2,000 units PO DAILY 01/16/17 [Last Taken 10/21/17] Escitalopram Oxalate [Lexapro 10 MG] 10 mg PO DAILY 01/16/17 [Last Taken ] Pregabalin [Lyrica 75mg (*)] 75 mg PO BID 01/16/17 [Last Taken 10/21/17] Sulfamethoxazole/Trimethoprim [Bactrim SS] 1 each PO BID 01/16/17 [Last Taken ] clonazePAM [Clonazepam] 1 mg PO HS 01/16/17 [Last Taken 10/20/17] Mirabegron [Myrbetriq] 50 mg PO DAILY 03/16/17 [Last Taken 10/21/17] Cyanocobalamin [Vitamin B12 1000MCG/ML (*)] 1,000 mcg IM TU 07/16/17 [Last Taken 10/18/17] Levothyroxine [Synthroid 75 mcg (*)] 75 mcg PO DAILY06 07/16/17 [Last Taken ] Propranolol HCl [Inderal 10mg (*)] 10 mg PO DAILY 07/16/17 [Last Taken 10/21/17] Calcium Carbonate [Oyster Shell Calcium 500 mg (*)] 500 mg PO BID 10/21/17 [ Last Taken 10/21/17] Solifenacin Succinate [Vesicare] 10 mg PO DAILY 10/21/17 [Last Taken 10/21/17] Umeclidinium Brm/Vilanterol Tr [Anoro Ellipta 62.5-25 Mcg INH] 1 puffs IH DAILY 10/21/17 [Last Taken 10/21/17] predniSONE 2.5 mg PO BIDMEAL 10/21/17 [Last Taken 10/21/17] Acetaminophen [Tylenol 325mg (*)] 650 mg PO Q4HRS PRN tab 10/26/17 [Last Taken Unknown] Albuterol [Proventil Neb] 3 ml IH Q2HRS PRN deyvial 10/26/17 [Last Taken Unknown] Cholecalciferol Vit D3 [Vitamin D3 (*)] 2,000 units PO DAILY tab 10/26/17 [ Last Taken Unknown] Enoxaparin [Lovenox 40 MG (*)] 40 mg SC DAILY syr 10/26/17 [Last Taken Unknown] Escitalopram Oxalate [Lexapro 10 MG] 10 mg PO DAILY tab 10/26/17 [Last Taken Unknown] Polyethylene Glycol 3350 [Miralax 17 gm (*)] 17 gm PO DAILY PRN pkt 10/26/17 [ Last Taken Unknown] Sennosides/Docusate Sodium [Senokot-S] 1 - 2 tab PO BID tab 10/26/17 [Last Taken Unknown] oxyCODONE/APAP 5/325 [Percocet 5/325 (*)] 1 - 2 tab PO Q4HRS PRN tab 10/26/17 [ Last Taken Unknown] Discharge Medications: Refer to the Discharge Home Medication list for PRN reason. - Orders Services needed: Registered Nurse, Physical Therapy, Occupational Therapy Isolation Type: None Oxygen: 2L O2 Diet Recommendation: cardiac -low fat low salt Diet Texture: Regular Texture Diet Jose Stockings Discontinue Date: continue for 10 days Activity/Weight Bearing Restrictions: Weight bearing as tolerated left lower extremity. Activity as tolerated. DVT prophylaxis: lovenox injection daily for 28 days post op. JOSE hose for 14 days post op. Pain medicine as need. Daily dry dressing changes. Follow up with Dr. Polanco in 10-14 days post op for suture removal and follow up evaluation Equipment: walker Additional: Jose Hose - Follow Up Care Current Providers and Referrals: Patient,NotPresent [Unknown] - As per Instructions Edwin Polanco MD [Medical Doctor] - follow up as scheduled (Please follow up with Dr Polanco at 6 weeks post op. Randolph to be removed by SNF staff at 10-12 Days post op.)
--- NOTE | 2017-10-26 10:29 | PDDCSUM ---
Discharge Summary Discharge Summary: Date of Admission: 10/21/2017 Date of Discharge: 10/26/2017 Discharge Diagnoses: Closed L intertrochanteric femoral fracture, s/p repair Recent mechanical fall COPD Tobacco dependence Chronic pain with narcotic dependence Chronic steroid use Chronic MRSA back infection, on suppressive therapy Acute blood loss anemia, resolved Admission Diagnoses: Closed L intertrochanteric femur fracture, s/p surgical repair s/p mechanical fall Chronic respiratory failure, at baseline COPD Tobacco use disorder Chronic pain with narcotic dependence Chronic steroid use Chronic MRSA back infection, on suppressive therapy Consultants: Orthopedic Surgery - Dr. Polanco Hospital Course: The patent is a 72yo F who was admitted after she fell in her garage, sustaining a left femoral intertrochanteric fracture. She underwent surgical repair on October 21. On October 23, she was transfused 1u PRBC for acute blood loss anemia. The next day, her blood pressure was low and she was given some IV fluids and another unit of RBC. Subsequently, her blood pressure was stable. The patient was feeling much better and ready to work more on PT/OT, so she was transferred on 10/26/2017 to the [facility] for further therapy and correction care. Condition: Stable. Discharged to: [facility]Rehab Pertinent tests/labs/imaging: Hip XR on admission - L intertrochanteric femoral fracture. Hgb on admission - 11.2. Plt count on admission - 104K. Hgb on discharge - 10.1 Plt count on discharge - 121K. Medications: Please see med rec form. Special instructions: Up with assistance and walker until patient gains more mobility. Giulia to be removed by staff at the Rehab after 1 week. Follow up: Follow up with primary care physician in 2 weeks. Follow up with Orthopedic Surgeon Dr. Polanco in 6 weeks. > 30 minutes of total time was spent on counseling and coordination of care for this patient's discharge.
--- NOTE | 2017-10-26 11:38 | ASMTCMCOM ---
CM Note CM Note Notes: Pt medically stable for d/c to [facility], wc van set up by [employer]. Orders sent in [employer]. Pt janine Pineda notified. Date Signed: 10/26/2017 11:37 AM Electronically Signed By:YANCY Cardona
--- NOTE | 2017-10-26 14:14 | ASDISCHSUM ---
Discharge Information Plan Status:SNF Medically Cleared to Leave: Discharge Date:10/26/2017 01:00 PM D/C Disposition:[facility] Facility ADT D/C Disposition:Other Rehab, Not [facility] Projected Discharge Date:10/24/2017 11:00 AM Transportation at D/C:Wheelchair Van Discharge Delay Reason: Follow-Up Date:10/24/2017 11:00 AM Discharge Slot: Final Diagnosis: Placement Information Referral Type:*[facility]/SNF Referral ID:[id number] Provider Name:[facility] Address 1:[address] Address 2: City:[place] Selection Factors: State:[place] Patient Contact Information Contact Name:GERSON Relationship:Daughter Address: City: [facility] Phone: [facility]/Zip Code: Email: Financial Information Financial Class: Primary Plan Desc:MEDICARE INPATIENT Primary Plan Number:[id number] Secondary Plan Desc:[employer]/MDR SUPPLEMENT Secondary Plan Number:[id number] Assessment Information [facility] CM Progress Note CM Note CM Note Notes: Pt s/p surgery for hip fx, lives alone and has a dghtr local. OT rec inpat rehab, PT rec SNF. Provided pt SNF choice list, she will discuss w friends/family. This initial conversation pt indicates some reluctance to SNF, CM to re-visit d/c planning w pt and follow progress. Date Signed: 10/22/2017 03:30 PM Electronically Signed By:YANCY Cardona [facility] CM Progress Note CM Note CM Note Notes: Spoke with pt; received permission to speak with her daughter Miriam ([phone]) regarding dc poc. Spoke with Miriam; Miriam agreeable to pt discharging to SNF; [facility] & [facility] chosen; referrals faxed; confirmed received. Awaiting callback. CM will continue to follow. Date Signed: 10/24/2017 12:53 PM Electronically Signed By:Radha Lamar RN [facility] CM Progress Note CM Note CM Note Notes: Pt accepted at both [facility] and [facility], both will have bed tomorrow which is likely d/c. Pt/dghtr chose [facility]. Date Signed: 10/25/2017 03:43 PM Electronically Signed By:YANCY Cardona [facility] CM Progress Note CM Note CM Note Notes: Pt medically stable for d/c to [facility], van set up by [employer]. Orders sent in [employer]. Pt johnr Miriam notified. Date Signed: 10/26/2017 11:37 AM Electronically Signed By:YANCY Cardona Intervention Information Intervention Type:*IM-Signed Date of Service:10/26/2017 10:35 AM Patient Type:Inpatient Staff Member:Carol Downey Hours: Discipline: Severity: Comment:
== END 2017-10-26 13:00 | DRG 480 ==
LOC: EDUNIT# → OBSVTOIN 19:42 → F3N 21:30
PROVIDERS: ADMIT Family Medicine; ATTEND Family Medicine
PROC: 0QS704Z Reposition Left Upper Femur with Internal Fixation Device, Open Approach (ICD-10-PCS; principal; 2017-10-21 18:00)
PROC: 30233N1 Transfusion of Nonautologous Red Blood Cells into Peripheral Vein, Percutaneous Approach (ICD-10-PCS; 2017-10-24)
DX: S72.142A Displaced intertrochanteric fracture of left femur, initial encounter for closed fracture (principal); S72.041A Displaced fracture of base of neck of right femur, initial encounter for closed fracture; W10.8XXA Fall (on) (from) other stairs and steps, initial encounter; Y92.015 Private garage of single-family (private) house as the place of occurrence of the external cause; Y99.8 Other external cause status; D62 Acute posthemorrhagic anemia; D69.6 Thrombocytopenia, unspecified; J44.9 Chronic obstructive pulmonary disease, unspecified; Z99.81 Dependence on supplemental oxygen; Z79.52 Long term (current) use of systemic steroids; F17.210 Nicotine dependence, cigarettes, uncomplicated; G89.29 Other chronic pain; F11.20 Opioid dependence, uncomplicated; E03.9 Hypothyroidism, unspecified; F32.9 Major depressive disorder, single episode, unspecified; Z86.14 Personal history of Methicillin resistant Staphylococcus aureus infection; Z79.2 Long term (current) use of antibiotics; Z98.1 Arthrodesis status
CPT/HCPCS: 92523-GN; 96374; 97110-GP; 97116-GP; 97162-GP; 97166-GO; 97530-GO; 97530-GP; C1713; G8978-GP-CK; G8979-GP-CJ; G8987-GO-CK; G8988-GO-CJ; G9165-GN-CI; G9166-GN-CI; G9167-GN-CI; J0171; J0690; J1100; J1170; J1650; J1885; J2001; J2405; J2704; J2795; J3010; J7512; J7613; P9016

== ENCOUNTER 2017-11-24 13:42 | Inpatient (IN) | payer OTHER, MEDICARE ==
--- NOTE | 2017-11-24 14:23 | EDPHY ---
H & P Stated Complaint: Mechanical fall, R hip pain - Personal History Tetanus Vaccine Date: < 10 years - Medical/Surgical History Hx Asthma: Yes Hx Chronic Respiratory Disease: Yes Hx Diabetes: No Hx Cardiac Disease: No Hx Renal Disease: No Hx Cirrhosis: No Hx Alcoholism: No Hx HIV/AIDS: No Hx Splenectomy or Spleen Trauma: No Other PMH: asthma, copd, depression, chronic back pain/surgery, hernia x2 currently present hypothyroid - Social History Smoking Status: Former smoker Time Seen by Provider: 11/24/17 13:54 HPI/ROS: CHIEF COMPLAINT: Right hip pain post mechanical fall HISTORY OF PRESENT ILLNESS: 72-year-old female post left intertrochanteric fracture with left intertrochanteric femoral nail placement approximately 1 month ago, currently residing at [facility] is rehabilitation, was in physical therapy this morning, tripped over her oxygen tubing falling on her right hip, now complaining of pain to right hip. Unable to bear weight. Pain reproducible range of motion. She also notes new pain to her left hip post fall. No head injury. Non syncopal episode. No anticoagulant use. Last oral intake was at 10:30 a.m. Consisting of toast. REVIEW OF SYSTEMS: A ten point review of systems was performed and is negative with the exception of the items mentioned in the HPI PAST MEDICAL/SURGICAL HISTORY: no anticoagulant use, recent left hip surgery SOCIAL HISTORY: denies alcohol use at time of incident PHYSICAL EXAM 1) GENERAL: Well-developed, well-nourished, alert and oriented. Appears to be in no acute distress. Answering questions appropriately. 2) HEAD: Normocephalic, atraumatic 3) HEENT: Pupils equal, round, reactive to light bilaterally. 4) NECK: No cervical collar is on. Posterior cervical spine is nontender, no stepoff, no effusion. Full range of motion which does not elicit any midline cervical spine pain, no posterior midline tenderness, no step-off. 5) LUNGS: Clear to auscultation bilaterally, no wheezes, no rhonchi, no retractions.. 6) HEART: [Regular rate and rhythm, 7) ABDOMEN: No guarding, no rebound, no focal tenderness, no peritoneal signs, no signs of trauma, no ecchymosis 8) MUSCULOSKELETAL: Right lower extremity: No shortening, no malrotation, tender to palpation right greater trochanteric region reproducible range of motion, limited range of motion. Intact skin. Left lower extremity: No shortening or malrotation. DP PT pulses present and brisk with intact skin. Tender to palpation left greater trochanteric region. Otherwise, moving all extremities with no focal areas of discomfort. 9) BACK: No midline vertebral tenderness, no fluctuance, no step-off, no obvious trauma, no visual or palpable abnormality. 10) SKIN: No laceration. No abrasion DIFFERENTIAL DIAGNOSIS: In no particular order including but not limited to fracture, dislocation, sprain strain (Coty Batista) Constitutional: Initial Vital Signs O2 Sat (%) 95 11/24/17 14:00 O2 Delivery Mode Room Air O2 (L/minute) 2 Allergies/Adverse Reactions: trazodone Allergy (Verified 10/21/17 16:48) BAL and SOB Home Medications: Medication Instructions Recorded Aspirin [Aspirin 81mg (*)] 81 mg PO DAILY 01/16/17 Pregabalin [Lyrica 75mg (*)] 75 mg PO Q2D 01/16/17 Sulfamethoxazole/Trimethoprim 1 each PO BID 01/16/17 [Bactrim SS] Mirabegron [Myrbetriq] 50 mg PO DAILY 03/16/17 Levothyroxine [Synthroid 75 mcg 75 mcg PO DAILY06 07/16/17 (*)] Propranolol HCl [Inderal 10mg (*)] 10 mg PO DAILY 07/16/17 Calcium Carbonate [Oyster Shell 500 mg PO BID 10/21/17 Calcium 500 mg (*)] Solifenacin Succinate [Vesicare] 10 mg PO DAILY 10/21/17 predniSONE 2.5 mg PO BIDMEAL 10/21/17 Acetaminophen [Tylenol 325mg (*)] 650 mg PO Q4HRS PRN tab 10/26/17 Cholecalciferol Vit D3 [Vitamin D3 2,000 units PO DAILY tab 10/26/17 (*)] Enoxaparin [Lovenox 40 MG (*)] 40 mg SC DAILY syr 10/26/17 Escitalopram Oxalate [Lexapro 10 10 mg PO DAILY tab 10/26/17 MG] Polyethylene Glycol 3350 [Miralax 17 gm PO DAILY PRN pkt 10/26/17 17 gm (*)] Sennosides/Docusate Sodium 1 - 2 tab PO BID tab 10/26/17 [Senokot-S] Cyanocobalamin [Vitamin B12 (*)] 1,000 mcg PO DAILY 11/24/17 Herbals/Supplements -Info Only 1 ea PO DAILY 11/24/17 Ipratropium/Albuterol [Duoneb (*)] 3 ml IH Q8H PRN 11/24/17 Ipratropium/Albuterol [Duoneb (*)] 3 ml IH TID 11/24/17 Methylphenidate HCl [Ritalin 5mg 2.5 mg PO DAILY 11/24/17 (*)] Multivitamins [Multivitamin (*)] 1 each PO DAILY 11/24/17 Umeclidinium Brm/Vilanterol Tr 1 each IH DAILY 11/24/17 [Anoro Ellipta 62.5-25 Mcg INH] oxyCODONE/APAP 5/325 [Percocet 1.5 tab PO Q4HRS PRN 11/24/17 5/325 (*)] predniSONE 2.5 mg PO Q24H PRN 11/24/17 rOPINIRole HCL [Requip] 0.25 mg PO HS 11/24/17 Medical Decision Making - Diagnostics Imaging Results: Imaging Impressions Hip X-Ray 11/24/17 14:14 Impression: 1. Displaced right greater trochanter fracture fragment. 2. No definite femoral neck fracture. The patient is unable to bear weight, recommend proceeding with noncontrast CT of the pelvis. Findings discussed with Emergency Department physician, Coty Batista on 11/24/2017, 15:27. Chest X-Ray 11/24/17 14:23 Impression: Clear lungs. No acute process. Pelvis CT 11/24/17 15:25 Impression: 1. Right greater trochanter acute fracture. 2. No evidence of right femoral neck or head fracture. 3. No evidence of right lesser trochanter fracture. Findings and recommendations given to Orthopedics at 1645 hours on November 24, 2017. Final report concurs with initial preliminary interpretation. ED Course/Re-evaluation: Patient has been re-evaluated with serial examinations. Discussed her imaging studies showing a displaced right greater trochanter fracture fragment. CT imaging has been obtained for further evaluation and will plan on consultation with on-call orthopedics Dr. Elvin Freed is Dr. Edwin Polanco [place]. At 4:00 p.m. I consulted with Dr. Arciniega regarding admission as the patient is unable to bear weight on the right lower extremity. 4:14 p.m.: Consultation Dr. Elvin Freed who will review the patient's images and consult. Patient remains NPO since 10 30 a.m. today (Coty Batista) Other Provider: The patient was evaluated and managed by the Physician Loss Prevention Auditor. I discussed the patient's presentation and course with the physician assistant account manager and agree with the evaluation. My co-signature indicates that I have reviewed this chart and I agree with the findings and plan of care as documented. I am the secondary supervising physician. (Kanika Amaya) - Data Points Medications Given: Albuterol/Ipratropium (Duoneb) 3 ml IH TID NORBERTO Stop: 05/23/18 21:59 Last Admin: 11/24/17 21:12 Dose: 3 ml Calcium Carbonate (Oyster Shell Calcium) 500 mg PO BID NORBERTO Stop: 05/23/18 20:59 Last Admin: 11/24/17 21:53 Dose: 500 mg Oxycodone/Acetaminophen (Percocet 5/325) 1 - 2 tab PO Q4HRS PRN PRN Reason: Pain, Severe Able to Take PO Stop: 12/04/17 17:45 Last Admin: 11/24/17 18:53 Dose: 1 tab Prednisone (Prednisone) 2.5 mg PO BIDMEAL NORBERTO Stop: 05/23/18 17:59 Last Admin: 11/24/17 18:38 Dose: 2.5 mg Ropinirole HCl (Requip) 0.25 mg PO HS NORBERTO Stop: 05/23/18 20:59 Last Admin: 11/24/17 21:52 Dose: 0.25 mg Senna/Docusate Sodium (Senokot-S) 1 - 2 tab PO BID NORBERTO Stop: 05/23/18 20:59 Last Admin: 11/24/17 21:52 Dose: Not Given Trimethoprim/Sulfamethoxazole (Sulfamethoxazole-Tmp Ss Tablet) 1 ea PO BID NORBERTO PRN Reason: Protocol Stop: 12/24/17 20:59 Last Admin: 11/24/17 21:51 Dose: 1 ea Departure - Departure Disposition: [facility] Acute Clinical Impression: Fracture of greater trochanter of right femur Qualifiers: Encounter type: initial encounter Fracture type: closed Fracture alignment: displaced Qualified Code(s): S72.111A - Displaced fracture of greater trochanter of right femur, initial encounter for closed fracture Condition: Fair
--- NOTE | 2017-11-24 16:26 | ASMTLACE ---
MILLIE Comorbidities - select Answers: Chronic pulmonary disease all that apply # of Emergency department Answers: 3-4 visits in the last 6 months Score: 5 Date Signed: 11/24/2017 04:25 PM Electronically Signed By:Sherry Bailey RN
[2017-11-24 16:51] LABS: PLATELET COUNT 257 10^3/uL (150-400)
[2017-11-24 17:16] LABS: PROTIME(PATIENT) 13.4 SEC (12.0-15.0)
--- NOTE | 2017-11-24 17:38 | PDGENHP ---
History and Physical - Chief Complaint Fall - History of Present Illness HISTORY OF PRESENT ILLNESS: 72-year-old female post recent Left intertrochanteric fracture with left intertrochanteric femoral nail placement approximately 1 month ago, currently residing at [facility], was in physical therapy this morning, tripped over her oxygen tubing falling on her right hip, now complaining of pain to right hip. Unable to bear weight. No head injury. Non syncopal episode. No anticoagulant use. Last oral intake was at 10:30 a.m. Consisting of toast. Pelvis CT shows acute Right Greater Troch fracture. The E.D. is notifying Ortho for surgical mgmt. 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, chronic pain syndrome, Hypothyroidism, SPCMN, chronic daily prednisone SOCIAL HISTORY: denies alcohol use at time of incident, daily tobacco, no ETOH, no illicits Fmhx: NC History Information - Allergies/Home Medication List Allergies/Adverse Reactions: trazodone Allergy (Verified 10/21/17 16:48) BAL and SOB Home Medications: Aspirin [Aspirin 81mg (*)] 81 mg PO DAILY 01/16/17 [Last Taken 10/21/17] Cholecalciferol Vit D3 [Vitamin D3 (*)] 2,000 units PO DAILY 01/16/17 [Last Taken 10/21/17] Escitalopram Oxalate [Lexapro 10 MG] 10 mg PO DAILY 01/16/17 [Last Taken ] Pregabalin [Lyrica 75mg (*)] 75 mg PO BID 01/16/17 [Last Taken 10/21/17] Sulfamethoxazole/Trimethoprim [Bactrim SS] 1 each PO BID 01/16/17 [Last Taken ] clonazePAM [Clonazepam] 1 mg PO HS 01/16/17 [Last Taken 10/20/17] Mirabegron [Myrbetriq] 50 mg PO DAILY 03/16/17 [Last Taken 10/21/17] Cyanocobalamin [Vitamin B12 1000MCG/ML (*)] 1,000 mcg IM TU 07/16/17 [Last Taken 10/18/17] Levothyroxine [Synthroid 75 mcg (*)] 75 mcg PO DAILY06 07/16/17 [Last Taken ] Propranolol HCl [Inderal 10mg (*)] 10 mg PO DAILY 07/16/17 [Last Taken 10/21/17] Calcium Carbonate [Oyster Shell Calcium 500 mg (*)] 500 mg PO BID 10/21/17 [ Last Taken 10/21/17] Solifenacin Succinate [Vesicare] 10 mg PO DAILY 10/21/17 [Last Taken 10/21/17] Umeclidinium Brm/Vilanterol Tr [Anoro Ellipta 62.5-25 Mcg INH] 1 puffs IH DAILY 10/21/17 [Last Taken 10/21/17] predniSONE 2.5 mg PO BIDMEAL 10/21/17 [Last Taken 10/21/17] I have personally reviewed and updated: medical history, social history - Past Medical History COPD ( Chronically steroid dependent, chronic immune-suppressed.) Additional medical history: Hypothyroidism. Depression. Chronic pain with continuous opiate dependency - Surgical History Additional surgical history: scoliosis with complete spine hardware, performed in [facility] - Family History Additional family history: she denies any recent sick family contacts - Social History Smoking Status: Former smoker Additional social history: normally independent in her ADLs, lives alone, utilizes a rolling walker, has some private duty assistance with outpatient appointments, family lives locally, has been [place] for the last year Review of Systems Review of Systems: ROS: 10pt was reviewed & negative except for what was stated in HPI & below Physical Exam Physical Exam: Temp Pulse Resp BP Pulse Ox 36.9 C 83 16 134/54 H 95 11/24/17 17:24 11/24/17 17:24 11/24/17 17:24 11/24/17 17:24 11/24/17 17:24 O2 (L/minute) 3 Constitutional: no apparent distress, appears nourished Eyes: PERRL, EOMI Ears, Nose, Mouth, Throat: moist mucous membranes, hearing normal Cardiovascular: regular rate and rhythym, No edema Respiratory: no respiratory distress, no rales or rhonchi Gastrointestinal: normoactive bowel sounds, soft, non-tender abdomen Skin: warm Neurologic: AAOx3 Psychiatric: interacting appropriately, not anxious, not encephalopathic Lymph, Heme, Immunologic: No petechiae Lab Data & Imaging Review 11/24/17 16:44 11/24/17 16:44 WBC 13.86 10^3/uL (3.80-9.50) H 11/24/17 16:44 RBC 2.61 10^6/uL (4.18-5.33) L 11/24/17 16:44 Hgb 8.6 g/dL (12.6-16.3) L 11/24/17 16:44 Hct 26.6 % (38.0-47.0) L 11/24/17 16:44 MCV 101.9 fL (81.5-99.8) H 11/24/17 16:44 MCH 33.0 pg (27.9-34.1) 11/24/17 16:44 MCHC 32.3 g/dL (32.4-36.7) L 11/24/17 16:44 RDW 17.3 % (11.5-15.2) H 11/24/17 16:44 Plt Count 257 10^3/uL (150-400) 11/24/17 16:44 MPV 10.3 fL (8.7-11.7) 11/24/17 16:44 Neut % (Auto) 78.7 % (39.3-74.2) H 11/24/17 16:44 Lymph % (Auto) 4.5 % (15.0-45.0) L 11/24/17 16:44 [place] % (Auto) 14.2 % (4.5-13.0) H 11/24/17 16:44 Eos % (Auto) 0.6 % (0.6-7.6) 11/24/17 16:44 Baso % (Auto) 0.1 % (0.3-1.7) L 11/24/17 16:44 Nucleat RBC Rel Count 0.0 % (0.0-0.2) 11/24/17 16:44 Absolute Neuts (auto) 10.88 10^3/uL (1.70-6.50) H 11/24/17 16:44 Absolute Lymphs (auto) 0.63 10^3/uL (1.00-3.00) L 11/24/17 16:44 Absolute Monos (auto) 1.97 10^3/uL (0.30-0.80) H 11/24/17 16:44 Absolute Eos (auto) 0.09 10^3/uL (0.03-0.40) 11/24/17 16:44 Absolute Basos (auto) 0.02 10^3/uL (0.02-0.10) 11/24/17 16:44 Absolute Nucleated RBC 0.00 10^3/uL (0-0.01) 11/24/17 16:44 Immature Gran % 1.9 % (0.0-1.1) H 11/24/17 16:44 Immature Gran # 0.27 10^3/uL (0.00-0.10) H 11/24/17 16:44 PT 13.4 SEC (12.0-15.0) 11/24/17 16:44 INR 1.00 (0.83-1.16) 11/24/17 16:44 APTT 46.8 SEC (23.0-38.0) H 11/24/17 16:44 Sodium 139 mEq/L (135-145) 11/24/17 16:44 Potassium 4.3 mEq/L (3.5-5.2) 11/24/17 16:44 Chloride 93 mEq/L (97-110) L 11/24/17 16:44 Carbon Dioxide 38 mEq/l (22-31) H 11/24/17 16:44 Anion Gap 8 mEq/L (8-16) 11/24/17 16:44 BUN 27 mg/dL (7-23) H 11/24/17 16:44 Creatinine 1.4 mg/dL (0.6-1.0) H 11/24/17 16:44 Estimated GFR 37 11/24/17 16:44 Glucose 96 mg/dL (70-100) 11/24/17 16:44 Calcium 10.4 mg/dL (8.5-10.4) 11/24/17 16:44 Assessment & Plan Assessment: #Fracture of greater trochanter of right femur (Acute) #s/p Mechanical Fall #Chronic respiratory failure at baseline #COPD, not in exacerbation #Tobacco abuse disorder #Possible Acute vs sub acute Renal failure, no elevation of BUN, does not look dry. Her baseline Cr is normal #Chronic pain syndrome and narcotic dependance #SPCMN #chronic daily steroid #Chronic MRSA back infection on suppressive therapy #Anemia, required transfusion during her last admission #Hx of Thrombocytopenia, no e/o this today #Leukocytosis, likely reactive Plan: operative care per surgery, will leave NPO currently until decision per Ortho SCD's PT/OT Pain mgmt cont Bactrim and Prednisone 2.5 mg PO BID. S appropriate home meds IVF, urine studies
[2017-11-24] MEDS ORDERED: ONDANSETRON 4 MG/2 ML VIAL IVP PRN (17:46)
[2017-11-24] MEDS ORDERED: ACETAMINOPHEN 325 MG TAB PO PRN (17:46)
[2017-11-24] MEDS ORDERED: ONDANSETRON DISINTEGRATING 4 MG TAB PO PRN (17:46)
[2017-11-24] MEDS ORDERED: HYDROmorphONE/DILAUDID 2 MG/ML INJ IVP PRN (17:46)
[2017-11-24] MEDS ORDERED: predniSONE 5 MG TAB PO PRN (17:48)
[2017-11-24] MEDS ORDERED: POLYETHYLENE GLYCOL 3350 17 GM PKT PO PRN (17:48)
[2017-11-24] MEDS ORDERED: IPRATROPIUM/ALBUTEROL 3 ML DEYVIAL IH PRN (17:48)
--- NOTE | 2017-11-24 18:08 | PDCONSULT ---
Liaison Planner Note: CC: Fall to right hip HPI: Patient a pleasant 72 yo female who presents following a fall today 11/24/17 while at her [facility]. States she was doing PT this am when she tripped over her oxygen cord. She fell, did not hit her head, is here for F/U right hip pain. Patient is known to our practice; Dr. Polanco performed a left hip ORIF on 10/21/17. Since that surgery, she has been ambulating well with use of a cane and a walker. Now has painful ambulation. She is sitting up in bed. Denies numbness, tingling, change in heat/color around hip, claudication, worsening cough, congestion, chest pain, SOB, dyspnea. Last meal: 13:00-14:00 today on 11/24/17, per patient. ROS: An otherwise 11 point ROS is negative except for as stated above. Medical Hx: no anticoagulant use, COPD, chronic MRSA infection in her spine which she is on suppressive therapy for, chronic pain, chronic respiratory failure-on 3L nocturnally, hypothyroidism. FHX: Non-pertinent. SHx: chronic smoker, no EtOH or IVDU. Allergies: Trazodone Medications: List reviewed and reconciled with patient. Generic Name Dose Route Start Last Admin Trade Name Freq PRN Reason Stop Dose Admin Acetaminophen 650 mg 11/24/17 17:46 Tylenol PO 05/23/18 17:45 Q4HRS PRN Pain, Mild/Fever, Can Take PO Albuterol/Ipratropium 3 ml 11/24/17 17:48 Duoneb IH 05/23/18 17:47 Q8H PRN Short of Breath/Dyspnea Albuterol/Ipratropium 3 ml 11/24/17 22:00 Duoneb IH 05/23/18 21:59 TID NORBERTO Calcium Carbonate 500 mg 11/24/17 21:00 Oyster Shell Calcium PO 05/23/18 20:59 BID NORBERTO Cholecalciferol 2,000 units 11/25/17 09:00 Vitamin D PO 05/24/18 08:59 DAILY NORBERTO Escitalopram Oxalate 10 mg 11/25/17 09:00 Lexapro PO 05/24/18 08:59 DAILY NORBERTO Hydromorphone HCl 0.2 - 0.4 mg 11/24/17 17:46 Dilaudid IVP 12/04/17 17:45 Q4HRS PRN Pain, Severe Unable to Take PO Sodium Chloride 1,000 mls @ 75 mls/hr 11/24/17 18:00 Ns IV 05/23/18 17:59 CONT NORBERTO Levothyroxine Sodium 75 mcg 11/25/17 06:00 Synthroid PO 05/24/18 05:59 DAILY06 NORBERTO Methylphenidate HCl 2.5 mg 11/25/17 09:00 Ritalin PO 05/24/18 08:59 DAILY NORBERTO Miscellaneous Medication 50 mg 11/25/17 09:00 Mirabegron [Myrbetriq] PO 05/24/18 08:59 DAILY NORBERTO Miscellaneous Medication 1 each 11/25/17 09:00 Umeclidinium Brm/Vilanterol Tr [Anoro Ellipta 62.5-25 Mcg Inh] IH 05/24/18 08:59 DAILY NORBERTO Multivitamins 1 each 11/25/17 09:00 Tab-A-Ewa PO 05/24/18 08:59 DAILY NORBERTO Ondansetron HCl 4 mg 11/24/17 17:46 Zofran IVP 05/23/18 17:45 Q4HRS PRN Nausea/Vomiting, Can't Take PO Ondansetron HCl 4 mg 11/24/17 17:46 Zofran Odt PO 05/23/18 17:45 Q4HRS PRN Nausea/Vomiting, Use 1st Oxycodone/Acetaminophen 1 - 2 tab 11/24/17 17:46 Percocet 5/325 PO 12/04/17 17:45 Q4HRS PRN Pain, Severe Able to Take PO Polyethylene Glycol 17 gm 11/24/17 17:48 Miralax PO 05/23/18 17:47 DAILY PRN Constipation, patient prefers Prednisone 2.5 mg 11/24/17 18:00 Prednisone PO 05/23/18 17:59 BIDMEAL NORBERTO Prednisone 2.5 mg 11/24/17 17:48 Prednisone PO Q24H PRN DIFFICULTY BREATHING Pregabalin 75 mg 11/26/17 09:00 Lyrica PO 05/25/18 08:59 Q2D NORBERTO Propranolol HCl 10 mg 11/25/17 09:00 Inderal PO 05/24/18 08:59 DAILY NORBERTO Ropinirole HCl 0.25 mg 11/24/17 21:00 Requip PO 05/23/18 20:59 HS [facility] Senna/Docusate Sodium 1 - 2 tab 11/24/17 21:00 Senokot-S PO 05/23/18 20:59 BID [facility] Solifenacin 10 mg 11/25/17 09:00 Vesicare PO 05/24/18 08:59 DAILY [facility] Trimethoprim/Sulfamethoxazole ea 11/24/17 21:00 Sulfamethoxazole-Tmp Ss Tablet PO 12/24/17 20:59 BID [facility] Protocol Vitamin B Complex 1,000 mcg 11/25/17 09:00 Vitamin B12 PO 05/24/18 08:59 DAILY [facility] Laboratory Results 11/24/17 16:44 11/24/17 16:44 11/24/17 11/24/17 11/24/17 16:44 16:44 16:44 WBC 13.86 10^3/uL H 10^3/uL (3.80-9.50) RBC 2.61 10^6/uL L 10^6/uL (4.18-5.33) Hgb 8.6 g/dL L g/dL (12.6-16.3) Hct 26.6 % L % (38.0-47.0) MCV 101.9 fL H fL (81.5-99.8) MCH 33.0 pg pg (27.9-34.1) MCHC 32.3 g/dL L g/dL (32.4-36.7) RDW 17.3 % H % (11.5-15.2) Plt Count 257 10^3/uL 10^3/uL (150-400) MPV 10.3 fL fL (8.7-11.7) Neut % (Auto) 78.7 % H % (39.3-74.2) Lymph % (Auto) 4.5 % L % (15.0-45.0) [place] % (Auto) 14.2 % H % (4.5-13.0) Eos % (Auto) 0.6 % % (0.6-7.6) Baso % (Auto) 0.1 % L % (0.3-1.7) Nucleat RBC Rel Count 0.0 % % (0.0-0.2) Absolute Neuts (auto) 10.88 10^3/uL H 10^3/uL (1.70-6.50) Absolute Lymphs (auto) 0.63 10^3/uL L 10^3/uL (1.00-3.00) Absolute Monos (auto) 1.97 10^3/uL H 10^3/uL (0.30-0.80) Absolute Eos (auto) 0.09 10^3/uL 10^3/uL (0.03-0.40) Absolute Basos (auto) 0.02 10^3/uL 10^3/uL (0.02-0.10) Absolute Nucleated RBC 0.00 10^3/uL 10^3/uL (0-0.01) Immature Gran % 1.9 % H % (0.0-1.1) Immature Gran # 0.27 10^3/uL H 10^3/uL (0.00-0.10) PT 13.4 SEC SEC (12.0-15.0) INR 1.00 (0.83-1.16) APTT 46.8 SEC H SEC (23.0-38.0) Sodium 139 mEq/L mEq/L (135-145) Potassium 4.3 mEq/L mEq/L (3.5-5.2) Chloride 93 mEq/L L mEq/L (97-110) Carbon Dioxide 38 mEq/l H mEq/l (22-31) Anion Gap 8 mEq/L mEq/L (8-16) BUN 27 mg/dL H mg/dL (7-23) Creatinine 1.4 mg/dL H mg/dL (0.6-1.0) Estimated GFR 37 Glucose 96 mg/dL mg/dL (70-100) Calcium 10.4 mg/dL mg/dL (8.5-10.4) Surgical history: spinal fusion with now chronic MRSA infection, R hip ORIF by Dr. Polanco on 10/21/17 Physical Exam: Temp Pulse Resp BP Pulse Ox 36.9 C 83 16 134/54 H 95 11/24/17 17:24 11/24/17 17:24 11/24/17 17:24 11/24/17 17:24 11/24/17 17:24 General: A&O, able to respond appropriately to questions, no acute distress. HEENT: NAD, EOMs intact, moist buccal mucosa, hearing intact, no lymphadenopathy. CV: Non-labored breathing, no diaphoresis, RRR, O2 in place at 3L/min. GI: soft, non-tender, non-distended. MS: -Lower extremities: Right hip with no ecchymosis, erythema, edema or calor noted. Left hip with well healed incision and no signs of infection: no change in heat/color around wound site, wound site is closed. NTTP over bilateral hips. Right hip shortened compared to left. Left hip at 90 degree hip flexion upon entering the room. AROM: Bilateral hip flexion to 90, abduction to 45, FROM in b/l knees and ankles. Calves soft/supple and NTTP b/l with brisk cap refill noted b/l. 5/5 distal lower extremity strength with gross sensation intact and no focal deficits noted. Neuro: appropriate mood/affect. Able to respond appropriately to questions. Imaging Impressions Hip X-Ray 11/24/17 14:14 Impression: 1. Displaced right greater trochanter fracture fragment: no fractures, malalignments or deformities otherwise noted. Findings discussed with Emergency Department physician, Coty Batista on 11/24/2017, 15:27. Chest X-Ray 11/24/17 14:23 Impression: Clear lungs. No acute process. Pelvis CT 11/24/17 15:25 Impression: 1. Right greater trochanter acute fracture. 2. No evidence of right femoral neck or head fracture. 3. No evidence of right lesser trochanter fracture. Findings and recommendations given to Orthopedics, Dr. Freed and Shonda Cannon, PAC, at 1645 hours on November 24, 2017. We observed the images at length and concur with the radiologist's report. Assessment/Plan: 1. Right hip greater trochanteric fracture with no evidence of femoral neck fracture, confirmed with CT: will treat non-operatively. 2. s/p Left hip ORIF with Dr. Edwin Polanco on 10/21/17: doing well prior to fall, no signs of infection. 3. h/o chronic MRSA in spine with use of chronic suppressives. 4. COPD with h/o chronic respiratory failure: On 3L O2 at this time. 5. Anemia: continue to monitor. Plan: At this time, patient's images were reviewed by myself and Dr. Freed and explained to the patient. We have recommended non-operative treatment at this time, and patient agrees with this course of action. We will continue to monitor her while she is here. -WBAT: encourage PT/OT with use of walker. -DVT prophylaxis: SCDs, JOSE hose, use of IS. Continue recommendations per hospitalists. -Chronic resp failure and COPD: continue plan per IM and hospitalists. -Continue plans per hospitalists, case management, PT/OT: appreciate their recommendations. -Questions/concerns call our office at [phone]. Patient/plan discussed and agreed upon with Dr. Freed.
[2017-11-24] MEDS: predniSONE 5 MG TAB PO SCH (18:38)
[2017-11-24] MEDS: OXYCODONE/APAP 5/325 TAB PO PRN (18:53)
[2017-11-24] MEDS: IPRATROPIUM/ALBUTEROL 3 ML DEYVIAL IH SCH (21:12)
[2017-11-24] MEDS: SULFAMETHOX/TMP 400/80 MG 1 TAB PO SCH (21:51)
[2017-11-24] MEDS: SENNOSIDES/DOCUSATE SODIUM TAB PO SCH (21:52)
[2017-11-24] MEDS: CALCIUM CARBONATE 500 MG TAB PO SCH (21:53)
[2017-11-25 05:12] LABS: PLATELET COUNT 221 10^3/uL (150-400)
[2017-11-25] MEDS: LEVOTHYROXINE 75 MCG TAB PO SCH (05:52)
[2017-11-25] MEDS: OXYCODONE/APAP 5/325 TAB PO PRN ×4 (05:54→17:37)
[2017-11-25] MEDS: IPRATROPIUM/ALBUTEROL 3 ML DEYVIAL IH SCH ×3 (08:22→21:30)
[2017-11-25] MEDS ORDERED: Herbals/Supplements -Info Only PO SCH (09:00)
[2017-11-25] MEDS: PROPRANOLOL HCL 10 MG TAB PO SCH (09:37)
[2017-11-25] MEDS: SULFAMETHOX/TMP 400/80 MG 1 TAB PO SCH ×2 (09:40→21:39)
[2017-11-25] MEDS: predniSONE 5 MG TAB PO SCH ×2 (09:40→17:37)
[2017-11-25] MEDS: MULTIVITAMINS 1 EACH TAB PO SCH (09:41)
[2017-11-25] MEDS: SENNOSIDES/DOCUSATE SODIUM TAB PO SCH ×2 (09:41→21:40)
[2017-11-25] MEDS: CYANO/VITAMIN B12 1000 MCG TAB PO SCH (09:41)
[2017-11-25] MEDS: CALCIUM CARBONATE 500 MG TAB PO SCH ×2 (09:42→21:39)
[2017-11-25] MEDS: CHOLECALCIFEROL VIT D3 1,000 UNITS TAB PO SCH (09:42)
[2017-11-25] MEDS: ESCITALOPRAM OXALATE 10 MG TAB PO SCH (09:42)
[2017-11-25] MEDS: SOLIFENACIN SUCCINATE 5 MG TAB PO SCH (09:43)
--- NOTE | 2017-11-25 10:42 | ASMTCMCOM ---
CM Note CM Note Notes: Reviewed chart, discussed w/RN and met w/pt. Pt from [facility] where she was recovering from L hip fx/surg and now admitted w/R hip fx which will be treated non-operatively per ortho MD note. Pt said she would like to return to [facility] for rehab. Left voicemail for Johanna at [facility]. CM will follow. Date Signed: 11/25/2017 10:42 AM Electronically Signed By:Vivian Griffin RN
--- NOTE | 2017-11-25 11:46 | PDMN ---
Medical Necessity Medical necessity: Pt meets IP criteria per MD; est los >2 mn for eval/tx of R hip fx r/t mechanical fall; admit for Ortho consult, pain management & therapies ; hx recent L hip surgery, COPD, chronic back MRSA infection, anemia & chronic pain syndrome; per H&P & order 11/24/17
[2017-11-25] MEDS: Mirabegron [Myrbetriq] 50 MG PO SCH (14:06)
--- NOTE | 2017-11-25 18:50 | HOSPPROG ---
Hospitalist Progress Note Assessment/Plan: DIAGNOSES: -acute right trochanteric fracture with small chip of bone off trochanteric knob , stable for weight-bearing, nonsurgical -marked gait instability and high fall risk -acute renal failure, suspect dehydration due to poor oral intake of fluids ( newly identified today further assessment and therapy needed) -anemia which is probably related to her fractures and prior hip surgery -recent surgical repair of left hip fracture with intramedullary nails, stable -chronic MRSA on chronic suppression with Bactrim -chronic pain syndrome PLANS: -IV hydration overnight -recheck renal function in morning; if not improving will need to get ultrasound and search for other causes of renal dysfunction -recheck hemoglobin in the morning, consider iron therapy -fall risk precautions, PTOT -can return to rehab unit in [place] once her renal function and hemoglobin her seem to be stable -review with her at great length the need to hydrate better over time and avoid nephrotoxin medications, reviewed this with her daughter who was at the bedside as well and the daughter agrees that this is been an ongoing problem SUBJECTIVE: Very little pain Still some balance difficulties Eating well OBJECTIVE Vitals reviewed: Stable without fever Exam: alert oriented skin warm dry color ok resps not labored lungs clear BSs heart regular abd soft nondistended nontender, bowel sounds present limbs warm, no edema iv site ok Laboratory data: Creatinine still elevated at 1.3, her baseline from last week 0.8 Hemoglobin is at 8 down from most recent at 10 during her last admission, probably ramp presents some drift related to her fall with injury and surgery Objective: Vital Signs Temp Pulse Resp BP Pulse Ox 37.3 C 82 16 97/51 L 93 11/25/17 16:00 11/25/17 16:00 11/25/17 16:00 11/25/17 16:00 11/25/17 16:00 Laboratory Results 11/25/17 04:50 11/25/17 04:50 11/24/17 11/25/17 11/26/17 06:59 06:59 06:59 Intake Total 450 790 Output Total 300 Balance 150 790 PT 13.4 SEC (12.0-15.0) 11/24/17 16:44 INR 1.00 (0.83-1.16) 11/24/17 16:44 - Time Spent With Patient Time Spent with Patient: greater than 35 minutes Time Spent with Patient: Greater than 35 minutes spent on this patients care, greater than 50% of time spent counseling, educating, and coordinating care regarding the above mentioned plan. ICD10 Worksheet Patient Problems: Problems Problem Status Onset Fracture of greater trochanter of right femur Acute Abrasion of left elbow, initial encounter Acute COPD exacerbation Acute COPD with exacerbation Acute Chronic Disease Mgmt/Transitional Care Acute Chronic obstructive pulmonary disease with acute exacerbation Acute Closed left subtrochanteric femur fracture Acute Dehydration Acute Dyspnea Acute Head injury due to trauma Acute Weakness Acute Weakness Acute
[2017-11-26] MEDS: OXYCODONE/APAP 5/325 TAB PO PRN ×4 (05:14→22:35)
[2017-11-26] MEDS: LEVOTHYROXINE 75 MCG TAB PO SCH (05:14)
[2017-11-26] MEDS: Mirabegron [Myrbetriq] 50 MG PO SCH (08:52)
[2017-11-26] MEDS: SOLIFENACIN SUCCINATE 5 MG TAB PO SCH (08:53)
[2017-11-26] MEDS: SENNOSIDES/DOCUSATE SODIUM TAB PO SCH ×2 (08:54→20:26)
[2017-11-26] MEDS: SULFAMETHOX/TMP 400/80 MG 1 TAB PO SCH ×2 (08:54→20:26)
[2017-11-26] MEDS: CALCIUM CARBONATE 500 MG TAB PO SCH ×2 (08:55→20:25)
[2017-11-26] MEDS: MULTIVITAMINS 1 EACH TAB PO SCH (08:55)
[2017-11-26] MEDS: ESCITALOPRAM OXALATE 10 MG TAB PO SCH (08:55)
[2017-11-26] MEDS: PREGABALIN 75 MG CAP PO SCH (08:55)
[2017-11-26] MEDS: PROPRANOLOL HCL 10 MG TAB PO SCH (08:56)
[2017-11-26] MEDS: CHOLECALCIFEROL VIT D3 1,000 UNITS TAB PO SCH (08:56)
[2017-11-26] MEDS: predniSONE 5 MG TAB PO SCH ×2 (08:57→16:51)
[2017-11-26] MEDS: CYANO/VITAMIN B12 1000 MCG TAB PO SCH (08:57)
[2017-11-26] MEDS: IPRATROPIUM/ALBUTEROL 3 ML DEYVIAL IH SCH ×3 (09:05→21:38)
--- NOTE | 2017-11-26 14:53 | SOAPPROG ---
SOAP Progress Note Assessment/Plan: Assessment/Plan: R greater trochanteric fracture - Treating non-operatively - WBAT RLE - SCDs/TEDs for mechanical VTE prophylaxis - Follow-up with Dr. Freed in 4 weeks for repeat x-rays 11/26/17 14:50 Subjective: Pt states she is mobilizing, but pain can go up to a 9/10 in the R hip. Pt states she is ready to go back to rehab. Pt denies fever, chills, chest pain, SOB, abdominal pain, N/V/D, numbness, tingling and calf pain. Objective: Vital Signs Temp Pulse Resp BP Pulse Ox 37.4 C 90 20 120/63 97 11/26/17 07:31 11/26/17 09:03 11/26/17 09:03 11/26/17 08:56 11/26/17 09:03 Laboratory Results 11/25/17 04:50 11/26/17 13:15 11/25/17 11/26/17 11/27/17 05:59 05:59 05:59 Intake Total 450 990 Output Total 300 201 Balance 150 789 PT 13.4 SEC (12.0-15.0) 11/24/17 16:44 INR 1.00 (0.83-1.16) 11/24/17 16:44 Physical Exam - Physical Exam General Appearance: alert, no apparent distress Skin: normal color, warm/dry Extremities: swelling (R hip), other (TTP over the R greater trochanter), No pedal edema, No calf tenderness, No Joyce's sign Neuro/Psych: no motor/sensory deficits, alert, normal mood/affect ICD10 Worksheet Patient Problems: Problems Problem Status Onset Fracture of greater trochanter of right femur Acute Abrasion of left elbow, initial encounter Acute COPD exacerbation Acute COPD with exacerbation Acute Chronic Disease Mgmt/Transitional Care Acute Chronic obstructive pulmonary disease with acute exacerbation Acute Closed left subtrochanteric femur fracture Acute Dehydration Acute Dyspnea Acute Head injury due to trauma Acute Weakness Acute Weakness Acute
[2017-11-26] MEDS: NS 1,000 ML IV SCH (15:13)
[2017-11-26] MEDS: SODIUM FERRIC GLUCONAT/SUCROSE 125 MG in NS 100 ML IV SCH (17:50)
--- NOTE | 2017-11-26 19:54 | HOSPPROG ---
Hospitalist Progress Note Assessment/Plan: DIAGNOSES: -acute right trochanteric fracture with small chip of bone off trochanteric knob , stable for weight-bearing, nonsurgical -marked gait instability and high fall risk -acute renal failure, suspect dehydration due to poor oral intake of fluids ( newly identified today further assessment and therapy needed) -anemia which is probably related to her fractures and prior hip surgery -recent surgical repair of left hip fracture with intramedullary nails, stable -chronic MRSA on chronic suppression with Bactrim -chronic pain syndrome From my discussion with her she does not have good insight into her predicament terms of repeated injuries and fall risk. Particularly given her decreased awareness or willingness to admit her high fall risk, she needs to be fully hydrated and have stable hemoglobin high enough to protect her from orthostasis. Will continue inpatient treatment here with IV fluids and at start treating her anemia or aggressively at this time PLANS: -IV hydration overnight will continue -IV iron -recheck hemoglobin in morning if has fallen any further consider transfusion -recheck renal function in morning to ensure continued improvement -I have ordered iron therapy -fall risk precautions, PTOT -can return to rehab unit in [place] once her renal function and hemoglobin her seem to be stable -review with her at great length the need to hydrate better over time and avoid nephrotoxin medications, reviewed this with her daughter who was at the bedside as well and the daughter agrees that this is been an ongoing problem SUBJECTIVE: No change in symptoms overall Eating well again Working well with therapists OBJECTIVE Vitals reviewed: Stable without fever Exam: alert oriented skin warm dry color ok resps not labored lungs clear BSs heart regular abd soft nondistended nontender, bowel sounds present limbs warm, no edema iv site ok Laboratory data: Creatinine still elevated at 1.1, her baseline from last week 0.8 Objective: Vital Signs Temp Pulse Resp BP Pulse Ox 37.1 C 80 18 128/52 H 97 11/26/17 16:00 11/26/17 16:00 11/26/17 16:00 11/26/17 16:00 11/26/17 16:00 Laboratory Results 11/25/17 04:50 11/26/17 13:15 11/25/17 11/26/17 11/27/17 06:59 06:59 06:59 Intake Total 301 281 2492 Output Total 300 201 Balance 963 899 5151 PT 13.4 SEC (12.0-15.0) 11/24/17 16:44 INR 1.00 (0.83-1.16) 11/24/17 16:44 - Time Spent With Patient Time Spent with Patient: greater than 35 minutes Time Spent with Patient: Greater than 35 minutes spent on this patients care, greater than 50% of time spent counseling, educating, and coordinating care regarding the above mentioned plan. ICD10 Worksheet Patient Problems: Problems Problem Status Onset Fracture of greater trochanter of right femur Acute Abrasion of left elbow, initial encounter Acute COPD exacerbation Acute COPD with exacerbation Acute Chronic Disease Mgmt/Transitional Care Acute Chronic obstructive pulmonary disease with acute exacerbation Acute Closed left subtrochanteric femur fracture Acute Dehydration Acute Dyspnea Acute Head injury due to trauma Acute Weakness Acute Weakness Acute
[2017-11-27 04:45] LABS: PLATELET COUNT 216 10^3/uL (150-400)
[2017-11-27] MEDS: NS 1,000 ML IV SCH (05:14)
[2017-11-27] MEDS: LEVOTHYROXINE 75 MCG TAB PO SCH (05:14)
[2017-11-27] MEDS: OXYCODONE/APAP 5/325 TAB PO PRN ×3 (05:14→14:50)
[2017-11-27] MEDS: predniSONE 5 MG TAB PO SCH (07:35)
--- NOTE | 2017-11-27 08:18 | SOAPPROG ---
SOAP Progress Note Assessment/Plan: Assessment: Post op ORIF tibial plafond fracture and fibula fracture. Post op pain was improved after releasing the splint and dressings last night at 1:00 compartment pressures were mildly elevated but in safe range. He has no increased pain this morning and remains a 5/10. no evidence of compromised circulation secondary to elevated pressures at this time. Plan:Continue strict elevation today and observe neurovasular status over next 24 hours in the hospital. PT/OT not to get out of bed today.Ice packs to extremity. Elevate just above the heart. 11/27/17 08:13 Subjective: Pain is OK and now 5 out of 10. "I can feel everything and move my toes well" Objective: Vital Signs Temp Pulse Resp BP Pulse Ox 37.3 C 84 16 131/64 H 96 11/27/17 08:00 11/27/17 08:00 11/27/17 08:00 11/27/17 08:00 11/27/17 08:00 Laboratory Results 11/27/17 04:24 11/27/17 04:24 11/26/17 11/27/17 11/28/17 05:59 05:59 05:59 Intake Total 990 2568 Output Total 201 Balance 789 2568 PT 13.4 SEC (12.0-15.0) 11/24/17 16:44 INR 1.00 (0.83-1.16) 11/24/17 16:44 Moderate blood loss continues in drain Sensory intact to light touch all dermatomes actively moves toes well No pain with passive dorsi-plantar flexion of toes. ICD10 Worksheet Patient Problems: Problems Problem Status Onset Fracture of greater trochanter of right femur Acute Abrasion of left elbow, initial encounter Acute COPD exacerbation Acute COPD with exacerbation Acute Chronic Disease Mgmt/Transitional Care Acute Chronic obstructive pulmonary disease with acute exacerbation Acute Closed left subtrochanteric femur fracture Acute Dehydration Acute Dyspnea Acute Head injury due to trauma Acute Weakness Acute Weakness Acute
[2017-11-27] MEDS: ESCITALOPRAM OXALATE 10 MG TAB PO SCH (08:44)
--- NOTE | 2017-11-27 08:44 | SOAPPROG ---
SOAP Progress Note Assessment/Plan: Assessment: Post op ORIF tibial plafond fracture and fibula fracture. Post op pain was improved after releasing the splint and dressings last night at 1:00 compartment pressures were mildly elevated but in safe range. He has no increased pain this morning and remains a 5/10. no evidence of compromised circulation secondary to elevated pressures at this. PLEASE NOTE THE ABOVE DICTATION IS ON THE WRONG PATIENT AND WILL BE CORRECTED THROUGH MEDICAL RECORDS. THANKS 11/27/17 08:13 11/27/17 08:41 Subjective: last note on this patient was for another patient so disregard Objective: Vital Signs Temp Pulse Resp BP Pulse Ox 37.3 C 84 16 131/64 H 96 11/27/17 08:00 11/27/17 08:00 11/27/17 08:00 11/27/17 08:00 11/27/17 08:00 Laboratory Results 11/27/17 04:24 11/27/17 04:24 11/26/17 11/27/17 11/28/17 05:59 05:59 05:59 Intake Total 990 2568 Output Total 201 Balance 789 2568 PT 13.4 SEC (12.0-15.0) 11/24/17 16:44 INR 1.00 (0.83-1.16) 11/24/17 16:44 ICD10 Worksheet Patient Problems: Problems Problem Status Onset Fracture of greater trochanter of right femur Acute Abrasion of left elbow, initial encounter Acute COPD exacerbation Acute COPD with exacerbation Acute Chronic Disease Mgmt/Transitional Care Acute Chronic obstructive pulmonary disease with acute exacerbation Acute Closed left subtrochanteric femur fracture Acute Dehydration Acute Dyspnea Acute Head injury due to trauma Acute Weakness Acute Weakness Acute
[2017-11-27] MEDS: PROPRANOLOL HCL 10 MG TAB PO SCH (08:51)
[2017-11-27] MEDS: CYANO/VITAMIN B12 1000 MCG TAB PO SCH (08:54)
[2017-11-27] MEDS: CHOLECALCIFEROL VIT D3 1,000 UNITS TAB PO SCH (08:54)
--- NOTE | 2017-11-27 08:54 | SOAPPROG ---
SOAP Progress Note Assessment/Plan: Assessment: No change from ortho standpoint. Plan: Mobilize with PT/OT. OK to transfer to rehab as per hospitalist Will follow up in office in one month THANKS 11/27/17 08:13 11/27/17 08:41 11/27/17 08:51 Subjective: Pain moderate Objective: Vital Signs Temp Pulse Resp BP Pulse Ox 37.3 C 84 16 131/64 H 96 11/27/17 08:00 11/27/17 08:00 11/27/17 08:00 11/27/17 08:00 11/27/17 08:00 Laboratory Results 11/27/17 04:24 11/27/17 04:24 11/26/17 11/27/17 11/28/17 05:59 05:59 05:59 Intake Total 990 2568 Output Total 201 Balance 789 2568 PT 13.4 SEC (12.0-15.0) 11/24/17 16:44 INR 1.00 (0.83-1.16) 11/24/17 16:44 CSMT ok Moves hips well with little painin bed Anemic ICD10 Worksheet Patient Problems: Problems Problem Status Onset Fracture of greater trochanter of right femur Acute Abrasion of left elbow, initial encounter Acute COPD exacerbation Acute COPD with exacerbation Acute Chronic Disease Mgmt/Transitional Care Acute Chronic obstructive pulmonary disease with acute exacerbation Acute Closed left subtrochanteric femur fracture Acute Dehydration Acute Dyspnea Acute Head injury due to trauma Acute Weakness Acute Weakness Acute
[2017-11-27] MEDS: SENNOSIDES/DOCUSATE SODIUM TAB PO SCH (08:55)
[2017-11-27] MEDS: CALCIUM CARBONATE 500 MG TAB PO SCH (08:55)
[2017-11-27] MEDS ORDERED: SOLIFENACIN SUCCINATE 5 MG TAB PO SCH (09:00)
[2017-11-27] MEDS: SULFAMETHOX/TMP 400/80 MG 1 TAB PO SCH (09:03)
[2017-11-27] MEDS: SODIUM FERRIC GLUCONAT/SUCROSE 125 MG in NS 100 ML IV SCH (09:05)
[2017-11-27] MEDS: MULTIVITAMINS 1 EACH TAB PO SCH (09:07)
--- NOTE | 2017-11-27 09:08 | PDDCSUM ---
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 Elvin Freed PROCEDURES: Transfusion of packed red blood cells CT scan of right hip HOSPITAL COURSE SUMMARY: This patient with known severe osteoporosis and previous fractures had been here with a left hip fracture a week prior to this admission. The hip fracture at that time was treated with into Medrol lowering nail. She was transferred from this hospital to a rehabilitation center. While there she apparently tripped over her oxygen tubing fell onto her right side suffering a right hip injury. Here based on CT and x-rays we CEA chip fracture off the superior portion of the greater trochanter but there is no inter trochanteric or neck fracture at the right hip. This is therefore stable weight-bearing fracture though fairly painful for her. No surgery is indicated. While here she is found to be dehydrated with acute renal failure and this has responded to IV hydration. In addition she had initially after her prior hip surgery hemoglobin of 6 that was treated with transfusion and her hemoglobin was 10 when she left here from the last hospital stay. At this time she arrives dehydrated with hemoglobin of 8 and hemoglobin came down the 7 with hydration. It is felt that her dehydration and her anemia are leaving her at significant risk of falls with orthostatic symptoms. Therefore she is given a transfusion of 1 unit packed red blood cells here in addition to the hydration. Also it is noted that she is iron deficient and she is receiving some iron replacements intravenously here and recommendations for oral iron replacements as she leaves. There had been no other complications here at this time. She is now stable for transfer to return to [facility] facility for rehabilitation of her hip fractures. PENDING TEST RESULTS: None MEDICATION CHANGES: Addition of daily iron supplements FOLLOW-UP PLAN: Transfer back to her rehabilitation unit today Is recommended that she visit with her primary care physician and reviewed the options for treatment of osteoporosis at the time of follow-up there Is recommended that she consider gastroenterology evaluation once stabilized to look for source of iron deficiency Greater than 35 minutes bedside and care coordination time today
--- NOTE | 2017-11-27 09:13 | PDIAF ---
- Diagnosis Diagnosis: Small chip fracture of R gr. trochanter; recent L hip fx, copd, chronic mrs - Medication Management Discharge Medications: Medications to Continue on Transfer Aspirin [Aspirin 81mg (*)] 81 mg PO DAILY 01/16/17 [Last Taken 10/21/17] Sulfamethoxazole/Trimethoprim [Bactrim SS] 1 each PO BID 01/16/17 [Last Taken ] Mirabegron [Myrbetriq] 50 mg PO DAILY 03/16/17 [Last Taken 10/21/17] Levothyroxine [Synthroid 75 mcg (*)] 75 mcg PO DAILY06 07/16/17 [Last Taken ] Propranolol HCl [Inderal 10mg (*)] 10 mg PO DAILY 07/16/17 [Last Taken 10/21/17] Calcium Carbonate [Oyster Shell Calcium 500 mg (*)] 500 mg PO BID 10/21/17 [ Last Taken 10/21/17] predniSONE 2.5 mg PO BIDMEAL 10/21/17 [Last Taken 10/21/17] Acetaminophen [Tylenol 325mg (*)] 650 mg PO Q4HRS PRN tab 10/26/17 [Last Taken Unknown] Cholecalciferol Vit D3 [Vitamin D3 (*)] 2,000 units PO DAILY tab 10/26/17 [ Last Taken Unknown] Enoxaparin [Lovenox 40 MG (*)] 40 mg SC DAILY syr 10/26/17 [Last Taken Unknown] Escitalopram Oxalate [Lexapro 10 MG] 10 mg PO DAILY tab 10/26/17 [Last Taken Unknown] Polyethylene Glycol 3350 [Miralax 17 gm (*)] 17 gm PO DAILY PRN pkt 10/26/17 [ Last Taken Unknown] Sennosides/Docusate Sodium [Senokot-S] 1 - 2 tab PO BID tab 10/26/17 [Last Taken Unknown] Cyanocobalamin [Vitamin B12 (*)] 1,000 mcg PO DAILY 11/24/17 [Last Taken Unknown ] Ipratropium/Albuterol [Duoneb (*)] 3 ml IH Q8H PRN 11/24/17 [Last Taken Unknown] Ipratropium/Albuterol [Duoneb (*)] 3 ml IH TID 11/24/17 [Last Taken Unknown] Methylphenidate HCl [Ritalin 5mg (*)] 2.5 mg PO DAILY 11/24/17 [Last Taken Unknown] Multivitamins [Multivitamin (*)] 1 each PO DAILY 11/24/17 [Last Taken Unknown] Umeclidinium Brm/Vilanterol Tr [Anoro Ellipta 62.5-25 Mcg INH] 1 each IH DAILY 11/24/17 [Last Taken Unknown] oxyCODONE/APAP 5/325 [Percocet 5/325 (*)] 1.5 tab PO Q4HRS PRN 11/24/17 [Last Taken Unknown] predniSONE 2.5 mg PO Q24H PRN 11/24/17 [Last Taken Unknown] rOPINIRole HCL [Requip 0.25mg (RX)] 0.25 mg PO HS 11/24/17 [Last Taken Unknown] Iron/Vit C/Docusate [Anastasiia-Sequels 65 mg (*)] 1 each PO DAILY #1 tab.er [Last Taken Unknown] Pregabalin [Lyrica 75mg (*)] 75 mg PO DAILY #0 11/27/17 [Last Taken 10/21/17] Solifenacin Succinate [Vesicare 5 MG (*)] 5 mg PO BID tab 11/27/17 [Last Taken Unknown] Discharge Medications: Refer to the Discharge Home Medication list for PRN reason. - Orders Services needed: Registered Nurse, Certified Product/Device Technologist, Master Plasma Specialist , Physical Therapy, Occupational Therapy Isolation Type: None Diet Recommendation: no restrictions on diet Diet Texture: Regular Texture Diet Activity/Weight Bearing Restrictions: Weight bear as tolerated with walker; fall risk precautions high fall risk Additional: Patient should remain chronically on Bactrim for suppression of chronic recurrent MRSA infections, no current or recent infections so contact isolation not necessary. Patient should remain on current steroids for her COPD chronically. Patient has severe osteoporosis and should be referred to her primary care physician upon discharge for consideration of anti resorptive therapy options. Additionally patient has iron deficiency identified at this time and should be seen at [facility] once she is completed her rehabilitation for evaluation for cause of iron deficiency. - Labs/Radiology CBC w/diff Date: 12/04/17 - Follow Up Care Current Providers and Referrals: Patient,NotPresent [Unknown] - As per Instructions Elvin Freed MD [Medical Doctor] - (Follow-up in clinic 3-4 weeks. Call to schedule. Call with any questions or concerns.)
[2017-11-27] MEDS: PREGABALIN 75 MG CAP PO SCH ×2 (09:15→09:16)
--- NOTE | 2017-11-27 09:15 | PDDCSUM ---
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 Elvin Freed PROCEDURES: Transfusion of packed red blood cells CT scan of right hip HOSPITAL COURSE SUMMARY: This patient with known severe osteoporosis and previous fractures had been here with a left hip fracture a week prior to this admission. The hip fracture at that time was treated with into Medrol lowering nail. She was transferred from this hospital to a rehabilitation center. While there she apparently tripped over her oxygen tubing fell onto her right side suffering a right hip injury. Here based on CT and x-rays we CEA chip fracture off the superior portion of the greater trochanter but there is no inter trochanteric or neck fracture at the right hip. This is therefore stable weight-bearing fracture though fairly painful for her. No surgery is indicated. While here she is found to be dehydrated with acute renal failure and this has responded to IV hydration. In addition she had initially after her prior hip surgery hemoglobin of 6 that was treated with transfusion and her hemoglobin was 10 when she left here from the last hospital stay. At this time she arrives dehydrated with hemoglobin of 8 and hemoglobin came down the 7 with hydration. It is felt that her dehydration and her anemia are leaving her at significant risk of falls with orthostatic symptoms. Therefore she is given a transfusion of 1 unit packed red blood cells here in addition to the hydration. Also it is noted that she is iron deficient and she is receiving some iron replacements intravenously here and recommendations for oral iron replacements as she leaves. There had been no other complications here at this time. She is now stable for transfer to return to shelter facility for rehabilitation of her hip fractures. PENDING TEST RESULTS: None MEDICATION CHANGES: Addition of daily iron supplements Note that this patient requires continuous lifelong use of antibiotic for previous history of recurrent and chronic MRSA infection so her Bactrim should not be stopped. She does not have any recent infection and no contact isolation as required. Also her steroids are chronic and should be continued for steroid dependent COPD FOLLOW-UP PLAN: Transfer back to her rehabilitation unit today Is recommended that she visit with her primary care physician and reviewed the options for treatment of osteoporosis at the time of follow-up there Is recommended that she consider gastroenterology evaluation once stabilized to look for source of iron deficiency Greater than 35 minutes bedside and care coordination time today
[2017-11-27] MEDS: IPRATROPIUM/ALBUTEROL 3 ML DEYVIAL IH SCH (09:32)
--- NOTE | 2017-11-27 10:16 | ASMTCMCOM ---
CM Note CM Note Notes: Dc order received. Spoke with MD & RN; pt will need 1 unit PRBCs prior to dc today. Alerted Chari, at [facility]. Paperwork faxed; confirmed received. Transport tentatively arranged for 1500. Anticipate dc later today if pt is medically stable. CM will follow. Date Signed: 11/27/2017 10:15 AM Electronically Signed By:Radha Lamar RN
[2017-11-27] MEDS: Mirabegron [Myrbetriq] 50 MG PO SCH (10:45)
[2017-11-27 10:51] VITALS: BP 114/51; PULSE 79; RESP 14; TEMP 98.8; O2SAT 93
--- NOTE | 2017-11-28 09:25 | ASDISCHSUM ---
Discharge Information Plan Status:SNF Medically Cleared to Leave: Discharge Date:11/27/2017 03:04 PM D/C Disposition:Alf Facility ADT D/C Disposition:Alf Facility Projected Discharge Date:11/27/2017 03:00 PM Transportation at D/C: Discharge Delay Reason: Follow-Up Date:11/27/2017 03:00 PM Discharge Slot: Final Diagnosis: Placement Information Referral Type:*Long-Term/SNF Referral ID:[id number] Provider Name:[facility] Address 1:[address] Address 2: City:[place] Selection Factors: State:[place] Patient Contact Information Contact Name:GERSON Relationship:Daughter Address: City: [facility] [place] Phone: [facility]/Zip Code: Email: Financial Information Financial Class:Medicare Primary Plan Desc:MEDICARE INPATIENT Primary Plan Number:[id number] Secondary Plan Desc:[employer]/MDR SUPPLEMENT Secondary Plan Number:[id number] Assessment Information LACE LACE Comorbidities - select Answers: Chronic pulmonary disease all that apply # of Emergency department Answers: 3-4 visits in the last 6 months Score: 5 Date Signed: 11/24/2017 04:25 PM Electronically Signed By:Sherry Bailey RN [facility] CM Progress Note CM Note CM Note Notes: Reviewed chart, discussed w/RN and met w/pt. Pt from [facility] where she was recovering from L hip fx/surg and now admitted w/R hip fx which will be treated non-operatively per ortho MD note. Pt said she would like to return to [facility] for rehab. Left voicemail for Johanna at [facility]. CM will follow. Date Signed: 11/25/2017 10:42 AM Electronically Signed By:Vivian Griffin RN [facility] CM Progress Note CM Note CM Note Notes: Dc order received. Spoke with MD & RN; pt will need 1 unit PRBCs prior to dc today. Alerted Chari, at [facility]. Paperwork faxed; confirmed received. Transport tentatively arranged for 1500. Anticipate dc later today if pt is medically stable. CM will follow. Date Signed: 11/27/2017 10:15 AM Electronically Signed By:Radha Lamar RN Intervention Information Intervention Type:*IM-Signed Date of Service:11/25/2017 02:14 PM Patient Type:Inpatient Staff Member:Carol Downey Hours: Discipline: Severity: Comment:
== END 2017-11-27 15:04 | DRG 536 ==
LOC: EDUNIT# → OBSVTOIN 16:00 → F3N 17:07
PROVIDERS: ADMIT Family Medicine; ATTEND Internal Medicine
PROC: 30233N1 Transfusion of Nonautologous Red Blood Cells into Peripheral Vein, Percutaneous Approach (ICD-10-PCS; principal; 2017-11-27)
DX: S72.115A Nondisplaced fracture of greater trochanter of left femur, initial encounter for closed fracture (principal); W01.0XXA Fall on same level from slipping, tripping and stumbling without subsequent striking against object, initial encounter; Y93.B9 Activity, other involving muscle strengthening exercises; Y92.128 Other place in nursing home as the place of occurrence of the external cause; Y99.8 Other external cause status; S72.142D Displaced intertrochanteric fracture of left femur, subsequent encounter for closed fracture with routine healing; S72.041D Displaced fracture of base of neck of right femur, subsequent encounter for closed fracture with routine healing; W10.8XXD Fall (on) (from) other stairs and steps, subsequent encounter; N17.9 Acute kidney failure, unspecified; E86.0 Dehydration; D50.0 Iron deficiency anemia secondary to blood loss (chronic); J44.9 Chronic obstructive pulmonary disease, unspecified; Z99.81 Dependence on supplemental oxygen; Z79.52 Long term (current) use of systemic steroids; J96.11 Chronic respiratory failure with hypoxia; G89.29 Other chronic pain; Z98.1 Arthrodesis status; F11.20 Opioid dependence, uncomplicated; F17.210 Nicotine dependence, cigarettes, uncomplicated; Z86.14 Personal history of Methicillin resistant Staphylococcus aureus infection; Z79.2 Long term (current) use of antibiotics
CPT/HCPCS: 97110-GP; 97116-GP; 97161-GP; 97166-GO; 97535-GO; G8978-GP-CK; G8979-GP-CJ; G8987-GO-CJ; G8988-GO-CJ; J2916; J7512; P9016

== ENCOUNTER 2017-12-01 10:39 | Emergency (ER) | payer OTHER, MEDICARE ==
[2017-12-01 10:54] VITALS: RESP 18; TEMP 97.9
[2017-12-01 11:13] LABS: PLATELET COUNT 268 10^3/uL (150-400)
[2017-12-01 11:30] LABS: INR 0.95 (0.83-1.16); PROTIME(PATIENT) 12.9 SEC (12.0-15.0)
--- NOTE | 2017-12-01 11:53 | EDPHY ---
H & P Time Seen by Provider: 12/01/17 13:55 HPI/ROS: Chief complaint. Right hip pain HPI. 72 female with known fracture of the right greater trochanter and recent hip fracture with surgery to the left hip presents by EMS with right hip pain. She is ambulatory and participating in rehab which is the instructions that she has been given for the right hip fracture of the greater trochanter. The last 2 days she has had a fall and she felt pop in increased pain to the right hip. It hurts to walk and move her right hip. No other injuries. She does not have left hip pain ROS Constitutional. no fever/chills, no weakness Eyes. no problems with vision ENT. no sore throat, no nasal drainage Cardiovascular. no chest pain Respiratory. no shortness of breath, no cough Abdominal. no abdominal pain, no nausea/vomiting, no diarrhea . no problems urinating MS. Right hip pain Skin. no rash Lymph. no swollen glands Neuro. no headache, no dizziness, no difficulty walking or with speech Past Medical/Surgical History: Asthma, COPD, depression, chronic pain, recent left hip fracture and known right greater trochanteric fracture Social History: Single, nonsmoker, no alcohol Smoking Status: Former smoker Physical Exam: General Appearance: Alert pleasant well-developed female mild distress vital signs are stable Eyes: Pupils equal and round no pallor or injection. ENT, Mouth: Mucous membranes are moist. Respiratory: There are no retractions, lungs are clear to auscultation. Cardiovascular: Regular rate and rhythm. Gastrointestinal: Abdomen is soft and nontender, no masses, bowel sounds normal. Neurological: Awake and alert, sensory and motor exams grossly normal. Skin: Warm and dry, no rashes. Musculoskeletal: Neck is supple nontender. Extremities no obvious shortening to the right leg. Some discomfort with palpation of the right hip. No obvious swelling or deformity Psychiatric: Patient is oriented X 3, there is no agitation. Constitutional: Initial Vital Signs Temperature (C) 36.6 C 12/01/17 10:52 Heart Rate 81 12/01/17 10:52 Respiratory Rate 18 12/01/17 10:52 Blood Pressure 119/62 12/01/17 10:52 O2 Sat (%) 98 12/01/17 10:52 O2 Delivery Mode Nasal Cannula O2 (L/minute) 3 Allergies/Adverse Reactions: trazodone Allergy (Verified 10/21/17 16:48) BAL and SOB Home Medications: Medication Instructions Recorded Aspirin [Aspirin 81mg (*)] 81 mg PO DAILY 01/16/17 Sulfamethoxazole/Trimethoprim 1 each PO BID 01/16/17 [Bactrim SS] Mirabegron [Myrbetriq] 50 mg PO DAILY 03/16/17 Levothyroxine [Synthroid 75 mcg 75 mcg PO DAILY06 07/16/17 (*)] Propranolol HCl [Inderal 10mg (*)] 10 mg PO DAILY 07/16/17 Calcium Carbonate [Oyster Shell 500 mg PO BID 10/21/17 Calcium 500 mg (*)] predniSONE 2.5 mg PO BIDMEAL 10/21/17 Acetaminophen [Tylenol 325mg (*)] 650 mg PO Q4HRS PRN tab 10/26/17 Cholecalciferol Vit D3 [Vitamin D3 2,000 units PO DAILY tab 10/26/17 (*)] Enoxaparin [Lovenox 40 MG (*)] 40 mg SC DAILY syr 10/26/17 Escitalopram Oxalate [Lexapro 10 10 mg PO DAILY tab 10/26/17 MG] Polyethylene Glycol 3350 [Miralax 17 gm PO DAILY PRN pkt 10/26/17 17 gm (*)] Sennosides/Docusate Sodium 1 - 2 tab PO BID tab 10/26/17 [Senokot-S] Cyanocobalamin [Vitamin B12 (*)] 1,000 mcg PO DAILY 11/24/17 Ipratropium/Albuterol [Duoneb (*)] 3 ml IH Q8H PRN 11/24/17 Ipratropium/Albuterol [Duoneb (*)] 3 ml IH TID 11/24/17 Methylphenidate HCl [Ritalin 5mg 2.5 mg PO DAILY 11/24/17 (*)] Multivitamins [Multivitamin (*)] 1 each PO DAILY 11/24/17 Umeclidinium Brm/Vilanterol Tr 1 each IH DAILY 11/24/17 [Anoro Ellipta 62.5-25 Mcg INH] oxyCODONE/APAP 5/325 [Percocet 1.5 tab PO Q4HRS PRN 11/24/17 5/325 (*)] predniSONE 2.5 mg PO Q24H PRN 11/24/17 rOPINIRole HCL [Requip 0.25mg (RX)] 0.25 mg PO HS 11/24/17 Iron/Vit C/Docusate [Anastasiia-Sequels 1 each PO DAILY #1 tab.er 11/27/17 65 mg (*)] Pregabalin [Lyrica 75mg (*)] 75 mg PO DAILY #0 11/27/17 Solifenacin Succinate [Vesicare 5 5 mg PO BID tab 11/27/17 MG (*)] oxyCODONE/APAP 5/325 [Percocet 1 tab PO Q4-6PRN PRN #15 tab 12/01/17 5/325] Medical Decision Making - Diagnostics Imaging Results: Imaging Impressions Femur X-Ray 12/01/17 11:02 Impression: 1. Stable fracture greater trochanter on the right. 2. Stable appearance of reduced intertrochanteric left hip fracture with internal fixation. 3. No new fractures seen about the pelvis with attention to the right hip as well as involving the remaining right femur. Hip X-Ray 12/01/17 11:02 Impression: 1. Stable fracture greater trochanter on the right. 2. Stable appearance of reduced intertrochanteric left hip fracture with internal fixation. 3. No new fractures seen about the pelvis with attention to the right hip as well as involving the remaining right femur. Chest X-Ray 12/01/17 11:03 Impression: 1. No new osseous abnormality seen about the chest with old healed fractures right anterolateral eighth, ninth, 10th ribs. 2. No active cardiopulmonary disease seen. X-ray right hip shows stable fracture of the greater trochanter on the right. Stable appearance of the internal fixation of the left hip fracture. No new fractures are seen. This is stable in comparison with previous x-ray of the right hip on November 24. Chest x-ray reviewed by me normal Procedures: IV normal saline. Fentanyl for pain. Review of films and old records shows that this fracture was felt to be stable and able to be ambulated andrea upon. No consideration of surgery for this. ED Course/Re-evaluation: On re-evaluation the patient and I discussed imaging results. We discussed treatment plan at that the fracture was stable and that she was able to be ambulatory. She is agreeable to returning to her rehab facility. Differential Diagnosis: Right hip pain but stable fracture of the greater trochanter that has been previous evaluated by Orthopedics and felt not to need surgery. Patient is cleared to ambulate on the right hip. No new fracture or dislocation is noted - Data Points Laboratory Results: Laboratory Results 12/01/17 10:45 12/01/17 10:45 12/01/17 12/01/17 12/01/17 10:45 10:45 10:45 WBC 9.71 10^3/uL H 10^3/uL (3.80-9.50) RBC 3.10 10^6/uL L 10^6/uL (4.18-5.33) Hgb 9.9 g/dL L g/dL (12.6-16.3) Hct 31.1 % L % (38.0-47.0) MCV 100.3 fL H fL (81.5-99.8) MCH 31.9 pg pg (27.9-34.1) MCHC 31.8 g/dL L g/dL (32.4-36.7) RDW 17.1 % H % (11.5-15.2) Plt Count 268 10^3/uL 10^3/uL (150-400) MPV 10.5 fL fL (8.7-11.7) Neut % (Auto) Not Reported Lymph % (Auto) Not Reported Lucas % (Auto) Not Reported Eos % (Auto) Not Reported Baso % (Auto) Not Reported Nucleat RBC Rel Count 0.0 % % (0.0-0.2) Absolute Neuts (auto) Not Reported Absolute Lymphs (auto) Not Reported Absolute Monos (auto) Not Reported Absolute Eos (auto) Not Reported Absolute Basos (auto) Not Reported Absolute Nucleated RBC 0.00 10^3/uL 10^3/uL (0-0.01) Immature Gran % Not Reported Seg Neutrophils % 72 % % Lymphocytes % 7 % % Monocytes % 20 % % Basophils % 1 % % Immature Gran # Not Reported Absolute Seg Neuts 6.99 10^/uL H 10^/uL (1.70-6.50) Absolute Lymphocytes 0.68 10^3/uL L 10^3/uL (1.00-3.00) Absolute Monocytes 1.94 10^3/uL H 10^3/uL (0.30-0.80) Absolute Basophils 0.10 10^3/uL 10^3/uL (0.02-0.10) Platelet Estimate ADEQUATE (ADEQ) Large Platelets PRESENT H Polychromasia 1+ H Smear Review By Pending PT 12.9 SEC SEC (12.0-15.0) INR 0.95 (0.83-1.16) APTT 38.5 SEC H SEC (23.0-38.0) Sodium 142 mEq/L mEq/L (135-145) Potassium 4.1 mEq/L mEq/L (3.5-5.2) Chloride 102 mEq/L mEq/L (97-110) Carbon Dioxide 32 mEq/l H mEq/l (22-31) Anion Gap 8 mEq/L mEq/L (8-16) BUN 15 mg/dL mg/dL (7-23) Creatinine 0.7 mg/dL mg/dL (0.6-1.0) Estimated GFR > 60 Glucose 82 mg/dL mg/dL (70-100) Calcium 9.0 mg/dL mg/dL (8.5-10.4) Departure - Departure Disposition: Home, Routine, Self-Care Clinical Impression: Fracture of greater trochanter of right femur Qualifiers: Encounter type: subsequent encounter Fracture type: closed Fracture alignment: nondisplaced Fracture healing: with routine healing Qualified Code(s): S72.114D - Nondisplaced fracture of greater trochanter of right femur, subsequent encounter for closed fracture with routine healing Condition: Good Instructions: Hip Fracture (ED) Additional Instructions: The fracture is stable compared to previous x-ray 1 week ago. You may ambulate and bear weight. You may participate in physical therapy. Return for worsening symptoms. Follow up with orthopedist for continuing symptoms and he wanted to see you in 1 month. May increase Percocet to 2 pills every 6 hr as needed for discomfort Referrals: MING WALTON [Other] - As per Instructions Elvin Freed MD [Medical Doctor] - As per Instructions Prescriptions: oxyCODONE/APAP 5/325 [Percocet 5/325] 1 tab PO Q4-6PRN PRN #15 tab PRN Reason: Pain, Moderate
[2017-12-01 13:48] VITALS: BP 110/74; PULSE 69; O2SAT 99
== END 2017-12-01 13:40 | disposition home or self-care (01) ==
LOC: EDUNIT#
DX: S72.114D Nondisplaced fracture of greater trochanter of right femur, subsequent encounter for closed fracture with routine healing (principal); J44.9 Chronic obstructive pulmonary disease, unspecified; Z87.891 Personal history of nicotine dependence; Z79.82 Long term (current) use of aspirin; X58.XXXD Exposure to other specified factors, subsequent encounter

== ENCOUNTER 2019-03-01 09:24 | Inpatient (IN) | payer OTHER, MEDICARE | END 2019-03-06 14:19 | disposition home or self-care (01) | LOC: F2W 12:00 ==